=== PATIENT | male | born 1950 | race Caucasian/White ===

== ENCOUNTER 2018-03-09 06:15 | Emergency (ER) | payer OTHER, SELFPAY ==
[2018-03-09] VITALS (18 sets, daily range): BP systolic 74–145; BP diastolic 49–107; PULSE 74–90; RESP 15–34; O2SAT 95–100; BMI 31.6
[2018-03-09] MEDS: MORPHINE 5 MG/ML INJ 4 MG IV (06:40)
[2018-03-09 06:48] LABS: Add Manual Diff / Slide Review NO; Basophils Percent Auto 1.5 % (0-2); Eosinophils Percent Auto 4.6 % (2-4); Hematocrit 32.7 % (41-53); Hemoglobin 10.9 g/dL (13.5-17.5); Lymphocytes Percent Auto 27.6 % (25-40); Mean Corpuscular HGB Conc 33.5 % (30-36); Mean Corpuscular Hemoglobin 30.8 PG (26-34); Mean Corpuscular Volume 92.1 fL (80-100); Neutrophils Absolute Auto 4400 /uL (3000-5900); Neutrophils Percent Auto 56.3 % (50-75); Platelet Count 150 X10^3/uL (150-400); Red Blood Cell Count 3.55 X10^6/uL (4.5-5.9); Red Cell Distribution Width 14.8 % (11.6-14.8); White Blood Cell Count 7.8 X10^3/uL (4.5-11.0)
[2018-03-09] MEDS: HYDROMORPHONE 2 MG INJ 1 MG IV ×2 (06:53→07:10)
[2018-03-09 06:55] LABS: Prothrombin Time 11.3 SECONDS (10.1-12.7)
[2018-03-09 06:58] LABS: PTT Partial Thromboplastin Tim 19 SECONDS (26.4-36.2)
[2018-03-09 06:59] LABS: Alanine Aminotransferase 28 IU/L (21-72); Albumin 3.2 g/dL (3.5-5.0); Albumin Globulin Ratio 1.1 (1.0-2.8); Alkaline Phosphatase 70 U/L (38-126); Aspartate Aminotransferase 21 IU/L (17-59); BUN Creatinine Ratio 34.5 (6-22); Bilirubin Total 0.7 mg/dL (0.2-1.3); Blood Urea Nitrogen 38 mg/dL (9-20); Calcium 7.9 mg/dL (8.4-10.2); Carbon Dioxide 18 mmol/L (22-32); Chloride 105 mmol/L (98-107); Estimated Glomerular Filt Rate > 60.0 mL/min (>60); Glucose 246 mg/dL (80-110); HEMOLYSIS 40 (0-50); Potassium 4.6 mmol/L (3.4-5.1); Sodium 138 mmol/L (137-145); Total Protein 6.2 g/dL (6.3-8.2)
--- NOTE | 2018-03-09 07:01 | ED_ITS ---
HPI - General Adult <Tana Jones DO - Last Filed: 03/09/18 18:27> General Chief complaint: Extremity Problem,Nontraumatic Stated complaint: Rt Thigh Pain Time Seen by Provider: 03/09/18 06:37 Source: patient, family and EMS Mode of arrival: EMS Limitations: no limitations History of Present Illness HPI narrative: Patient is a 67-year-old male who presents with extreme right leg pain. He has a history of femoral arterial stent placed a number of years ago. He has noticed some swelling over the last few days however this morning he woke up with extreme pain in his leg is swelling quite rapidly. Initial blood pressure for EMS was in the 80s he continues to be in the 80s here for us. Complaining only of pain in the right medial thigh. He also has a history of a left AKA Related Data Home Medications Medication Instructions Recorded Confirmed aspirin 81 mg PO QDAY #30 tab 06/30/16 carvedilol [Coreg] 25 mg PO Q DAY #0 06/30/16 diphenhydramine HCl [Diphedryl] 25 mg PO HSP PRN #0 06/30/16 hydrochlorothiazide 12.5 mg PO QDAY #0 06/30/16 insulin glargine [Lantus Solostar 30 unit SQ HS #0 06/30/16 U-100 Insulin] insulin lispro [Humalog KwikPen 10 unit SQ SLIDE #0 06/30/16 Insulin] losartan 100 mg PO BID #0 06/30/16 rosuvastatin [Crestor] 5 mg PO QDAY #30 tab 06/30/16 Allergies Allergy/AdvReac Type Severity Reaction Status Date / Time No Known Drug Allergies Allergy Verified 03/09/18 06:48 Review of Systems <Tana Jones DO - Last Filed: 03/09/18 18:27> Review of Systems All systems reviewed & are unremarkable except as noted in HPI and below Constitutional Denies chills, Denies fever(s), Denies lethargy and Denies weakness Cardiovascular Denies chest pain, Denies irregular heart rhythm, Denies lightheadedness, Denies palpitations, Denies dyspnea, Denies dyspnea on exertion and Denies orthopnea Respiratory Denies cough, Denies dyspnea, Denies dyspnea on exertion and Denies wheezing Gastrointestinal Gastrointestinal: Denies abdominal pain, Denies change in bowel habits, Denies diarrhea, Denies nausea and Denies vomiting Musculoskeletal Reports system reviewed and no additional complaints, except as docu Integumentary/Breasts Denies pruritus, Denies erythema, Denies rash and Denies wounds Neurologic Denies weakness Endocrine Denies palpitations Hematologic/Lymphatic Denies easy bleeding and Denies easy bruising Allergic/Immunologic Denies wheezing Exam <Tana Jones DO - Last Filed: 03/09/18 18:27> Initial Vital Signs Initial Vital Signs: Vital Signs Pulse Rate 90 03/09/18 06:20 Respiratory Rate 22 03/09/18 06:20 Blood Pressure 128/80 H 03/09/18 06:20 Pulse Oximetry 95 03/09/18 06:20 Const General: acute distress, in distress and ill appearing Orientation: alert, awake and oriented x3 Other: Pale appears in pain Resp Effort & Inspection: normal respiratory effort, able to speak in complete sentences, no respiratory distress and no use of accessory muscles Auscultation: clear to auscultation bilaterally, no rales, no rhonchi and no wheezes Cardio Rate: regular rate Rhythm: regular rhythm Heart Sounds: no click, no gallops, no murmurs and no rubs Pulses: normal peripheral pulses Neuro General: alert, awake and oriented x3 Extrem General: normal to inspection Right lower extremity: hip/thigh (Swelling good femoral pulse but significant medial thigh swelling. Decreased distal pedal pulse.) <Suleiman Mcgraw, DO - Last Filed: 03/09/18 08:20> Initial Vital Signs Initial Vital Signs: Vital Signs Pulse Rate 90 03/09/18 06:20 Respiratory Rate 22 03/09/18 06:20 Blood Pressure 128/80 H 03/09/18 06:20 Pulse Oximetry 95 03/09/18 06:20 Course <Tana Jones DO - Last Filed: 03/09/18 18:27> Orders Ordered: Discontinued Medications Hydromorphone HCl (Dilaudid) 1 mg IV NOW ONE Stop: 03/09/18 07:14 Last Admin: 03/09/18 06:53 Dose: 1 mg Hydromorphone HCl (Dilaudid) 1 mg IV NOW ONE Stop: 03/09/18 07:15 Last Admin: 03/09/18 07:10 Dose: 1 mg Hydromorphone HCl (Dilaudid) 1 mg IV NOW ONE Stop: 03/09/18 08:01 Last Admin: 03/09/18 08:05 Dose: 1 mg Sodium Chloride (Normal Saline 0.9%) 1,000 mls @ 2,000 mls/hr IV BOLUS ONE Stop: 03/09/18 07:07 Last Infusion: 03/09/18 08:08 Dose: 0 mls/hr Admin: 03/09/18 07:08 Dose: 2,000 mls/hr Sodium Chloride (Normal Saline 0.9%) 1,000 mls @ 1,000 mls/hr IV BOLUS PRN PRN Reason: Fluid replacement Last Infusion: 03/09/18 09:05 Dose: 200 mls/hr Admin: 03/09/18 08:21 Dose: 1,000 mls/hr Morphine Sulfate (Morphine Sulfate) 4 mg IV NOW ONE Stop: 03/09/18 06:39 Last Admin: 03/09/18 06:40 Dose: 4 mg Morphine Sulfate (Morphine) 4 mg IV NOW ONE Stop: 03/09/18 07:14 Ondansetron HCl (Zofran) 4 mg IV NOW ONE Stop: 03/09/18 09:01 Last Admin: 03/09/18 09:00 Dose: 4 mg Vital Signs - 8 hr 03/09/18 06:20 03/09/18 06:55 03/09/18 07:10 Pulse Rate 90 85 Respiratory Rate 22 26 H Blood Pressure 128/80 H Blood Pressure [Left Arm] 145/62 H 100/70 Pulse Oximetry 95 99 03/09/18 07:18 03/09/18 07:30 03/09/18 07:36 Pulse Rate 83 81 78 Respiratory Rate 28 H 25 H Blood Pressure Blood Pressure [Left Arm] 74/52 L 110/49 L 113/69 Pulse Oximetry 99 100 03/09/18 07:41 03/09/18 07:47 03/09/18 07:50 Pulse Rate 78 81 79 Respiratory Rate 21 21 Blood Pressure Blood Pressure [Left Arm] 109/67 101/71 106/69 Pulse Oximetry 100 100 100 03/09/18 07:56 03/09/18 08:05 03/09/18 08:10 Pulse Rate 80 81 78 Respiratory Rate 15 29 H 27 H Blood Pressure Blood Pressure [Left Arm] 91/79 90/55 L 99/68 Pulse Oximetry 98 100 100 03/09/18 08:14 Pulse Rate 80 Respiratory Rate 34 H Blood Pressure Blood Pressure [Left Arm] 99/68 Pulse Oximetry 100 <Suleiman Mcgraw DO - Last Filed: 03/09/18 08:20> Orders Ordered: Discontinued Medications Hydromorphone HCl (Dilaudid) 1 mg IV NOW ONE Stop: 03/09/18 07:14 Last Admin: 03/09/18 06:53 Dose: 1 mg Hydromorphone HCl (Dilaudid) 1 mg IV NOW ONE Stop: 03/09/18 07:15 Last Admin: 03/09/18 07:10 Dose: 1 mg Hydromorphone HCl (Dilaudid) 1 mg IV NOW ONE Stop: 03/09/18 08:01 Last Admin: 03/09/18 08:05 Dose: 1 mg Sodium Chloride (Normal Saline 0.9%) 1,000 mls @ 2,000 mls/hr IV BOLUS ONE Stop: 03/09/18 07:07 Last Infusion: 03/09/18 08:08 Dose: 0 mls/hr Admin: 03/09/18 07:08 Dose: 2,000 mls/hr Sodium Chloride (Normal Saline 0.9%) 1,000 mls @ 1,000 mls/hr IV BOLUS PRN PRN Reason: Fluid replacement Last Infusion: 03/09/18 09:05 Dose: 200 mls/hr Admin: 03/09/18 08:21 Dose: 1,000 mls/hr Morphine Sulfate (Morphine Sulfate) 4 mg IV NOW ONE Stop: 03/09/18 06:39 Last Admin: 03/09/18 06:40 Dose: 4 mg Morphine Sulfate (Morphine) 4 mg IV NOW ONE Stop: 03/09/18 07:14 Ondansetron HCl (Zofran) 4 mg IV NOW ONE Stop: 03/09/18 09:01 Last Admin: 03/09/18 09:00 Dose: 4 mg Vital Signs - 8 hr 03/09/18 06:20 03/09/18 06:55 03/09/18 07:10 Pulse Rate 90 85 Respiratory Rate 22 26 H Blood Pressure 128/80 H Blood Pressure [Left Arm] 145/62 H 100/70 Pulse Oximetry 95 99 03/09/18 07:18 03/09/18 07:30 03/09/18 07:36 Pulse Rate 83 81 78 Respiratory Rate 28 H 25 H Blood Pressure Blood Pressure [Left Arm] 74/52 L 110/49 L 113/69 Pulse Oximetry 99 100 03/09/18 07:41 03/09/18 07:47 03/09/18 07:50 Pulse Rate 78 81 79 Respiratory Rate 21 21 Blood Pressure Blood Pressure [Left Arm] 109/67 101/71 106/69 Pulse Oximetry 100 100 100 03/09/18 07:56 03/09/18 08:05 03/09/18 08:10 Pulse Rate 80 81 78 Respiratory Rate 15 29 H 27 H Blood Pressure Blood Pressure [Left Arm] 91/79 90/55 L 99/68 Pulse Oximetry 98 100 100 03/09/18 08:14 Pulse Rate 80 Respiratory Rate 34 H Blood Pressure Blood Pressure [Left Arm] 99/68 Pulse Oximetry 100 Medical Decision Making <Tana Jones, DO - Last Filed: 03/09/18 18:27> MDM Narrative Medical decision making narrative: Hiro wrap and tourniquet placed on right leg concern for arterial of rupture.. Patient placed in Trendelenburg. Patient's pain is much better controlled with narcotic medications. The blood pressure remaining stable. Call into [facility] on fortunately vascular surgeon in the OR currently unavailable. Radiology called with preliminary report. 6 cm aneurysm/pseudoaneurysm femoral all artery to really rupture with no opacification distally some collaterals. Patient is signed out to Dr. Mcgraw. Awaiting Sharri biswas vascular surgeon will need to be transferred. Air lift on standby. Lab Data Lab results reviewed: Yes I reviewed the patient's lab results. Result diagrams: 03/09/18 06:30 03/09/18 06:30 Lab Results 03/09/18 03/09/18 03/09/18 Range/Units 06:30 06:30 06:30 WBC 7.8 (4.5-11.0) X10^3/uL RBC 3.55 L (4.5-5.9) X10^6/uL Hgb 10.9 L (13.5-17.5) g/dL Hct 32.7 L (41-53) % MCV 92.1 (80-100) fL MCH 30.8 (26-34) PG MCHC 33.5 (30-36) % RDW 14.8 (11.6-14.8) % Plt Count 150 (150-400) X10^3/uL Neut % (Auto) 56.3 (50-75) % Lymph % (Auto) 27.6 (25-40) % [place] % (Auto) 10.0 (3-14) % Eos % (Auto) 4.6 H (2-4) % Baso % (Auto) 1.5 (0-2) % Neut # (Auto) 4400 (7345-1404) /uL PT 11.3 (10.1-12.7) SECONDS INR 1.0 (0.9-1.3) APTT 19 L (26.4-36.2) SECONDS Sodium 138 (137-145) mmol/L Potassium 4.6 (3.4-5.1) mmol/L Chloride 105 (98-107) mmol/L Carbon Dioxide 18 L (22-32) mmol/L BUN 38 H (9-20) mg/dL Creatinine 1.10 (0.66-1.25) mg/dL Estimated GFR > 60.0 (>60) mL/min BUN/Creatinine Ratio 34.5 H (6-22) Glucose 246 H (80-110) mg/dL Calcium 7.9 L (8.4-10.2) mg/dL Total Bilirubin 0.7 (0.2-1.3) mg/dL AST 21 (17-59) IU/L ALT 28 (21-72) IU/L Alkaline Phosphatase 70 (38-126) U/L Total Protein 6.2 L (6.3-8.2) g/dL Albumin 3.2 L (3.5-5.0) g/dL Globulin 3.0 (1.7-4.1) g/dL Albumin/Globulin Ratio 1.1 (1.0-2.8) Blood Type Antibody Screen 03/09/18 Range/Units 06:30 WBC (4.5-11.0) X10^3/uL RBC (4.5-5.9) X10^6/uL Hgb (13.5-17.5) g/dL Hct (41-53) % MCV (80-100) fL MCH (26-34) PG MCHC (30-36) % RDW (11.6-14.8) % Plt Count (150-400) X10^3/uL Neut % (Auto) (50-75) % Lymph % (Auto) (25-40) % [place] % (Auto) (3-14) % Eos % (Auto) (2-4) % Baso % (Auto) (0-2) % Neut # (Auto) (9713-7415) /uL PT (10.1-12.7) SECONDS INR (0.9-1.3) APTT (26.4-36.2) SECONDS Sodium (137-145) mmol/L Potassium (3.4-5.1) mmol/L Chloride (98-107) mmol/L Carbon Dioxide (22-32) mmol/L BUN (9-20) mg/dL Creatinine (0.66-1.25) mg/dL Estimated GFR (>60) mL/min BUN/Creatinine Ratio (6-22) Glucose (80-110) mg/dL Calcium (8.4-10.2) mg/dL Total Bilirubin (0.2-1.3) mg/dL AST (17-59) IU/L ALT (21-72) IU/L Alkaline Phosphatase (38-126) U/L Total Protein (6.3-8.2) g/dL Albumin (3.5-5.0) g/dL Globulin (1.7-4.1) g/dL Albumin/Globulin Ratio (1.0-2.8) Blood Type A Positive Antibody Screen Negative Imaging Data angio: Attestation: I personally reviewed and interpreted this imaging study as follows: Radiologist's impression: PROCEDURE: CT ANGIO CHEST ABDOMEN PELVIS INDICATIONS: right leg swelling rupture hx of femoral artery stent TECHNIQUE: Precontrast 5 mm thick sections acquired from the lung apices to the iliac crests. After the administration of intravenous contrast, 2.5 mm thick sections again acquired from the lung apices to the iliac crests. Maximum intensity projection (MIP) oblique sagittal and coronal reformats were then acquired. For radiation dose reduction, the following was used: automated exposure control. COMPARISON: None. FINDINGS: Preliminary report by assembler 1st shift radiology Image quality: Excellent. Thoracic aorta: Intramural hematoma: Absent Maximum hematoma thickness: N./A. Focal contrast enhancement: Intramural blood pool absent Ulcer-like projection (broad communication with aortic lumen > 3 mm): Absent Dissection: Absent Jl classification: N./A. Maximum ascending aortic diameter: 3.7 cm Periaortic hematoma: Absent. CHEST: Lungs and pleura: Mild centrilobular emphysema. In the lateral aspect of the right upper lobe, series 8/images 15 and 16, is a spiculated 13 by 16mm subpleural mass. The inferior component is more elongated measuring 3.8 cm AP. In the left upper lobe anterolaterally is a subpleural 12 mm density with central lucency. Remainder of lungs clear. No pleural effusions or pneumothorax. Central and peripheral airways are patent and normal in caliber. Mediastinum: Heart size is normal. Coronary artery calcifications. No pericardial effusion. No mediastinal or hilar adenopathy by size criteria. Central pulmonary arteries are normal in size. Esophagus is normal in caliber. No hiatal hernias. Bones and chest wall: No axillary adenopathy by size criteria. Thyroid gland appears normal. No suspicious bony lesions. No vertebral body compression fractures. ABDOMEN: Vasculature: Abdominal aorta does show mild mural thrombus and atheromatous calcifications without aneurysm, maximum diameter 2.7 cm. The mural thrombus and wall thickening extends into the bifurcation and left common iliac artery. Celiac trunk and mesenteric arteries are patent. Renal arteries are also patent. The left superficial femoral artery immediately distal to the femoral bifurcation is aneurysmal at 2.6 x 2.7 cm with circumferential mural thrombus and complete occlusion of the lumen. There is no apparent reconstitution in the distal left thigh, AKA amputation evident. The right common femoral artery is aneurysmal at approximately 6 cm diameter and there is extravasation into the surrounding soft tissues of the proximal thigh. The vessel is occluded at that level with reconstitution of the distal popliteal artery by collateral flow. The patent portion of the popliteal artery and the runoff vessels are small in caliber. Solid organs: Liver is normal in size and enhancement. Gallbladder contains dependent stones. No gallbladder wall thickening or inflammatory changes. Biliary system is non dilated. Pancreas enhances normally. Spleen is normal in size and enhancement. No adrenal nodules. Both kidneys are normal in size and enhancement, without hydronephrosis. Peritoneum and bowel: No free fluid or air. Bowel loops are normal in caliber and wall thickness. Nodes and vessels: No retroperitoneal or mesenteric adenopathy by size criteria. Inferior vena cava is normal in morphology. Miscellaneous: No ventral hernias. PELVIS: Genitourinary: Bladder wall thickness is normal. Prostate contains amorphous calcifications. Miscellaneous: No inguinal hernias or adenopathy. No ventral hernias. Bones: No suspicious bony lesions. No vertebral body compression fractures. IMPRESSION: 1. 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 The right SFA is occluded at that level with reconstitution of the popliteal artery distally. 2. Small aneurysm at the origin of the left SFA with occlusion of the vessel at that level, no distal reconstitution seen. Status post left AKA. 3. No thoracic or abdominal aortic aneurysm or dissection. 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 4. Irregular, spiculated mass in the right upper lobe is of concern for possible primary pulmonary neoplasm. Comparison with any prior outside exams would be helpful. The lesion is probably accessible for CT-guided percutaneous biopsy if indicated. 5. Small subpleural mass with central lucency left upper lobe is likely scar but indeterminate. Followup recommended. 6. Cholelithiasis without evidence of cholecystitis. Findings are concordant with the preliminary report. Dictated by: Kendell Gutiérrez M.D. on 03/09/2018 at 7:47 Approved by: Kendell Gutiérrez M.D. on 03/09/2018 at 8:11 ECG Data Attestation: I personally reviewed and interpreted this ECG as follows: Prior ECG tracings: not available for review Interpretation: Normal sinus rhythm with PVCs rate [address] changes no ischemia normal intervals <Suleiman Mcgraw DO - Last Filed: 03/09/18 08:20> [facility] Narrative Medical decision making narrative: Received turned over from Dr. jones initially evaluated the patient upon his arrival. Reviewed patient's history and physical exam. Blood pressure stable with systolic greater than 100. Providing small aliquots of pain medication while maintaining blood pressure. Type and screen has been ordered. Awaiting callback from vascular surgery at [facility]. Patient with ruptured right femoral artery aneurysm. Will continue to monitor. 0815: Discussed the case with Dr. Bragg with vascular surgery at [facility] who reviewed the CT images and accepted the patient in transfer. We will transport the patient by airlift for surgical intervention. Patient is stable for transport. Informed the patient and his of the transport and they expressed understanding and agreement. Lab Data Lab Results 03/09/18 03/09/18 03/09/18 Range/Units 06:30 06:30 06:30 WBC 7.8 (4.5-11.0) X10^3/uL RBC 3.55 L (4.5-5.9) X10^6/uL Hgb 10.9 L (13.5-17.5) g/dL Hct 32.7 L (41-53) % MCV 92.1 (80-100) fL MCH 30.8 (26-34) PG MCHC 33.5 (30-36) % RDW 14.8 (11.6-14.8) % Plt Count 150 (150-400) X10^3/uL Neut % (Auto) 56.3 (50-75) % Lymph % (Auto) 27.6 (25-40) % [place] % (Auto) 10.0 (3-14) % Eos % (Auto) 4.6 H (2-4) % Baso % (Auto) 1.5 (0-2) % Neut # (Auto) 4400 (5933-5479) /uL PT 11.3 (10.1-12.7) SECONDS INR 1.0 (0.9-1.3) APTT 19 L (26.4-36.2) SECONDS Sodium 138 (137-145) mmol/L Potassium 4.6 (3.4-5.1) mmol/L Chloride 105 (98-107) mmol/L Carbon Dioxide 18 L (22-32) mmol/L BUN 38 H (9-20) mg/dL Creatinine 1.10 (0.66-1.25) mg/dL Estimated GFR > 60.0 (>60) mL/min BUN/Creatinine Ratio 34.5 H (6-22) Glucose 246 H (80-110) mg/dL Calcium 7.9 L (8.4-10.2) mg/dL Total Bilirubin 0.7 (0.2-1.3) mg/dL AST 21 (17-59) IU/L ALT 28 (21-72) IU/L Alkaline Phosphatase 70 (38-126) U/L Total Protein 6.2 L (6.3-8.2) g/dL Albumin 3.2 L (3.5-5.0) g/dL Globulin 3.0 (1.7-4.1) g/dL Albumin/Globulin Ratio 1.1 (1.0-2.8) Blood Type Antibody Screen 03/09/18 Range/Units 06:30 WBC (4.5-11.0) X10^3/uL RBC (4.5-5.9) X10^6/uL Hgb (13.5-17.5) g/dL Hct (41-53) % MCV (80-100) fL MCH (26-34) PG MCHC (30-36) % RDW (11.6-14.8) % Plt Count (150-400) X10^3/uL Neut % (Auto) (50-75) % Lymph % (Auto) (25-40) % [place] % (Auto) (3-14) % Eos % (Auto) (2-4) % Baso % (Auto) (0-2) % Neut # (Auto) (4668-8844) /uL PT (10.1-12.7) SECONDS INR (0.9-1.3) APTT (26.4-36.2) SECONDS Sodium (137-145) mmol/L Potassium (3.4-5.1) mmol/L Chloride (98-107) mmol/L Carbon Dioxide (22-32) mmol/L BUN (9-20) mg/dL Creatinine (0.66-1.25) mg/dL Estimated GFR (>60) mL/min BUN/Creatinine Ratio (6-22) Glucose (80-110) mg/dL Calcium (8.4-10.2) mg/dL Total Bilirubin (0.2-1.3) mg/dL AST (17-59) IU/L ALT (21-72) IU/L Alkaline Phosphatase (38-126) U/L Total Protein (6.3-8.2) g/dL Albumin (3.5-5.0) g/dL Globulin (1.7-4.1) g/dL Albumin/Globulin Ratio (1.0-2.8) Blood Type A Positive Antibody Screen Negative Discharge Plan Departure [facility] 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 Discharge Date/Time: 03/09/18 09:05 Interventions: ED Discharge Assessment Last Done: 03/09/18 09:12 Prescriptions: No Action aspirin 81 MG tablet,delayed release (DR/EC) 81 mg PO QDAY Qty: 30 RF: 0 carvedilol [Coreg] 25 MG tablet 25 mg PO Q DAY Qty: 0 RF: 0 diphenhydramine HCl [Diphedryl] 25 MG capsule 25 mg PO HSP PRNQty: 0 RF: 0 hydrochlorothiazide 25 MG tablet 12.5 mg PO QDAY Qty: 0 RF: 0 insulin glargine [Lantus Solostar U-100 Insulin] 100 UNIT/1 ML insulin pen 30 unit SQ HS Qty: 0 RF: 0 losartan 100 MG tablet 100 mg PO BID Qty: 0 RF: 0 insulin lispro [Humalog KwikPen Insulin] 100 UNIT/1 ML insulin pen 10 unit SQ SLIDE Qty: 0 RF: 0 rosuvastatin [Crestor] 5 MG tablet 5 mg PO QDAY Qty: 30 RF: 0
[2018-03-09] MEDS: SODIUM CHLORIDE 0.9% 1,000 ML 2000 ML IV (07:08)
--- NOTE | 2018-03-09 07:13 | DI.CT.S_ITS ---
PROCEDURE: CT ANGIO CHEST ABDOMEN PELVIS INDICATIONS: right leg swelling rupture hx of femoral artery stent TECHNIQUE: Precontrast 5 mm thick sections acquired from the lung apices to the iliac crests. After the administration of intravenous contrast, 2.5 mm thick sections again acquired from the lung apices to the iliac crests. Maximum intensity projection (MIP) oblique sagittal and coronal reformats were then acquired. For radiation dose reduction, the following was used: automated exposure control. COMPARISON: None. FINDINGS: Preliminary report by police shift commander radiology Image quality: Excellent. Thoracic aorta: Intramural hematoma: Absent Maximum hematoma thickness: N./A. Focal contrast enhancement: Intramural blood pool absent Ulcer-like projection (broad communication with aortic lumen > 3 mm): Absent Dissection: Absent Jl classification: N./A. Maximum ascending aortic diameter: 3.7 cm Periaortic hematoma: Absent. CHEST: Lungs and pleura: Mild centrilobular emphysema. In the lateral aspect of the right upper lobe, series 8/images 15 and 16, is a spiculated 13 by 16mm subpleural mass. The inferior component is more elongated measuring 3.8 cm AP. In the left upper lobe anterolaterally is a subpleural 12 mm density with central lucency. Remainder of lungs clear. No pleural effusions or pneumothorax. Central and peripheral airways are patent and normal in caliber. Mediastinum: Heart size is normal. Coronary artery calcifications. No pericardial effusion. No mediastinal or hilar adenopathy by size criteria. Central pulmonary arteries are normal in size. Esophagus is normal in caliber. No hiatal hernias. Bones and chest wall: No axillary adenopathy by size criteria. Thyroid gland appears normal. No suspicious bony lesions. No vertebral body compression fractures. ABDOMEN: Vasculature: Abdominal aorta does show mild mural thrombus and atheromatous calcifications without aneurysm, maximum diameter 2.7 cm. The mural thrombus and wall thickening extends into the bifurcation and left common iliac artery. Celiac trunk and mesenteric arteries are patent. Renal arteries are also patent. The left superficial femoral artery immediately distal to the femoral bifurcation is aneurysmal at 2.6 x 2.7 cm with circumferential mural thrombus and complete occlusion of the lumen. There is no apparent reconstitution in the distal left thigh, AKA amputation evident. The right common femoral artery is aneurysmal at approximately 6 cm diameter and there is extravasation into the surrounding soft tissues of the proximal thigh. The vessel is occluded at that level with reconstitution of the distal popliteal artery by collateral flow. The patent portion of the popliteal artery and the runoff vessels are small in caliber. Solid organs: Liver is normal in size and enhancement. Gallbladder contains dependent stones. No gallbladder wall thickening or inflammatory changes. Biliary system is non dilated. Pancreas enhances normally. Spleen is normal in size and enhancement. No adrenal nodules. Both kidneys are normal in size and enhancement, without hydronephrosis. Peritoneum and bowel: No free fluid or air. Bowel loops are normal in caliber and wall thickness. Nodes and vessels: No retroperitoneal or mesenteric adenopathy by size criteria. Inferior vena cava is normal in morphology. Miscellaneous: No ventral hernias. PELVIS: Genitourinary: Bladder wall thickness is normal. Prostate contains amorphous calcifications. Miscellaneous: No inguinal hernias or adenopathy. No ventral hernias. Bones: No suspicious bony lesions. No vertebral body compression fractures. IMPRESSION: 1. 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 The right SFA is occluded at that level with reconstitution of the popliteal artery distally. 2. Small aneurysm at the origin of the left SFA with occlusion of the vessel at that level, no distal reconstitution seen. Status post left AKA. 3. No thoracic or abdominal aortic aneurysm or dissection. 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 4. Irregular, spiculated mass in the right upper lobe is of concern for possible primary pulmonary neoplasm. Comparison with any prior outside exams would be helpful. The lesion is probably accessible for CT-guided percutaneous biopsy if indicated. 5. Small subpleural mass with central lucency left upper lobe is likely scar but indeterminate. Followup recommended. 6. Cholelithiasis without evidence of cholecystitis. Findings are concordant with the preliminary report. Dictated by: Kendell Gutiérrez M.D. on 03/09/2018 at 7:47 Approved by: Kendell Gutiérrez M.D. on 03/09/2018 at 8:11
--- NOTE | 2018-03-09 07:34 | PC.NURSE ---
Late entry @0710-assumed care of pt in [facility]. Pt awake, appears to be sleepy but oriented x3, c/o R leg. Pt sitting up in bed, pale in the face. Has a tourniquet and acewrap in R leg. 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 Pt cont being monitored for HR, BP Q5min, Cardiac, o2. O2 by NC on 3L provided and RLE elevated above chest level on 2 pillows and pt in trendelenberg position. Pt medicated 2nd dose of dialaudid 1mg titrated per BP. Ice pack applied on affected limb as ordered. Informed pt and spouse on pending transfer and attempting to find receiving facility for higher care. MD aware of pt's BP and pain. After the pain med, pt still c/o pain in RLE.
--- NOTE | 2018-03-09 07:41 | PC.NURSE ---
pt reports pain radiating to R Lower back. Hx of stent to RLE, has been having pain for last a couple of week and noticed large swelling at 0600 am when woke up to go to bathroom.
[2018-03-09] MEDS: HYDROMORPHONE 1 MG INJ IV (08:05)
--- NOTE | 2018-03-09 08:07 | PC.NURSE ---
Titraing Dilaudid 0.5mg each per Pt's BP.
[2018-03-09] MEDS: SODIUM CHLORIDE 0.9% 1,000 ML 1000 ML IV (08:21)
--- NOTE | 2018-03-09 08:28 | PC.NURSE ---
pt reports unable to feel on RLE as pt's usual decreased sensation. Able to wiggle toes. RLE cool to touch but upper body-pale and diphoresis
--- NOTE | 2018-03-09 08:40 | PC.NURSE ---
Difficulty managing pt's low back and RLE pain with dilaudid titration. Noticed increased R thigh size upto above R knee. Feel bounding pulsation on R thigh above the tournique which in place high and tight and intact. -R foot pedal pulse, skin cool/dusky and mottle, cool to touch. Pt denies sensation on R foot but able to wiggle toes. Pt pale in the face and mildly diaphoretic on face and chest. Pt and spouse informed regarding pending transfer to [facility] via [facility]. Pt in and out of sleeping and easily aroused per light noise.
[2018-03-09] MEDS: ONDANSETRON 4 MG/2 ML INJ IV (09:00)
== END 2018-03-09 09:05 | disposition short-term general hospital (02) ==
PROVIDERS: Emergency Medicine; Emergency Provider Emergency Medicine; PCP Internal Medicine
DX: I72.4 Aneurysm of artery of lower extremity (principal)
CPT/HCPCS: 71275; 74174; 80053; 85025; 85610; 85730; 86850; 86900; 86901; 93005; 93010; 93041; 96361; 96374; 96375; 96376; 99285; 99291; 99292; J1170; J2270; J2405; Q9967

== ENCOUNTER → 2018-04-03 16:22 | Outpatient (REF) | payer OTHER, SELFPAY ==
[2018-04-03 16:47] LABS: Prothrombin Time 53.7 SECONDS (10.1-12.7)
[2018-04-03 17:14] LABS: INR 5.1 (0.9-1.3)
== END ==
LOC: LAB 16:22
PROVIDERS: PCP Internal Medicine; Visit Provider Physician Assistant Medical
DX: I72.4 Aneurysm of artery of lower extremity (principal); Z79.01 Long term (current) use of anticoagulants; Z79.899 Other long term (current) drug therapy
CPT/HCPCS: 85610

== ENCOUNTER 2018-05-24 14:30 | Emergency (ER) | payer OTHER, SELFPAY ==
[2018-05-24 14:48] VITALS: BP 125/77; PULSE 69; RESP 18; TEMP 36.9; O2SAT 98
--- NOTE | 2018-05-24 15:16 | ED_ITS ---
HPI - Extremity Problem <Rivka Suazo PA-C - Last Filed: 05/24/18 21:29> General Chief complaint: Skin/Abscess/Foreign Body Stated complaint: SURGERY RIGHT LEG,FEVER/FECTION Time Seen by Provider: 05/24/18 14:47 Source: patient Mode of arrival: ambulatory Limitations: no limitations History of Present Illness HPI Narrative: this 67-year-old gentleman comes to ED after directed by his PCP. 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 He ended up being transferred from here and had fasciotomy and some type of vascular repair done as well ( he is not exactly sure what was done ). He states he has had home health care every other day and has been healing well, however over the long weekend they did not come out for 5 days. Two days ago, he started to have chills and sweats and felt poorly in general with decreased appetite, generalized body aches, dry heaves, and a few episodes of vomiting. The vomiting only lasted that day, however he has had persistent aches and feeling weak and tired, and today he had a fever of 101.5 at home which prompted him to call his PCP. States that he noted drainage from the right medial thigh incision (states thin, clear fluid, more in last 2 days). He states that the distal portion of that has been slow to heal. He has not seen pus coming from this, but it has been more red, warm and swollen, so he is concerned about infection. He denies other new complaints such as chest pain, dyspnea, or cough. He states that he has had some degree of swelling around that incision site since surgery, but thinks a little bit worse now. Related Data Home Medications Medication Instructions Recorded Confirmed aspirin 81 mg PO QPM #30 tab 06/30/16 05/24/18 carvedilol [Coreg] 25 mg PO BID #0 06/30/16 05/24/18 diphenhydramine HCl [Diphedryl] 25 mg PO HSP PRN #0 06/30/16 05/24/18 hydrochlorothiazide 25 mg PO QDAY #0 06/30/16 05/24/18 insulin glargine [Lantus Solostar 30 unit SQ HS #0 06/30/16 05/24/18 U-100 Insulin] insulin lispro [Humalog KwikPen 10 - 12 unit SQ BID #0 06/30/16 05/24/18 Insulin] losartan 100 mg PO BID #0 06/30/16 05/24/18 CoQ-10 1 cap PO DAILY 05/24/18 05/24/18 rosuvastatin 10 mg PO QPM 05/24/18 05/24/18 warfarin 2.5 mg PO Q OTHER DAY 05/24/18 05/24/18 warfarin 5 mg PO Q OTHER DAY 05/24/18 05/24/18 Previous Rx's Medication Instructions Recorded clindamycin HCl 300 mg PO Q6H 10 Days #40 cap 05/24/18 Allergies Allergy/AdvReac Type Severity Reaction Status Date / Time atenolol Allergy Unknown Verified 05/24/18 15:00 atorvastatin Allergy Unknown Hives Verified 05/24/18 15:00 clopidogrel Allergy Unknown Hives Verified 05/24/18 15:00 Review of Systems <Rivka Suazo PA-C - Last Filed: 05/24/18 21:29> Review of Systems All systems reviewed & are unremarkable except as noted in HPI and below Exam <Rivka Suazo PA-C - Last Filed: 05/24/18 21:29> Narrative Exam Narrative: GENERAL APPEARANCE: Patient sitting comfortably, in no distress. HEENT: PERRL, EOMI NECK/THYROID: Neck supple. LUNGS: Clear to auscultation bilaterally. HEART: Regular rate and rhythm without murmur, normal S1, S2, no S3 or S4. ABDOMEN: Soft, NT, ND, + BS x 4 quadrants EXTREMITIES: No cyanosis or edema. No calf tenderness on the right. Right pedal pulses are not palpable but easily audible with Doppler NEUROLOGIC: Alert and oriented, normal speech, and coordination. DERMATOLOGIC: Left thigh there is a surgical incision site on the medial side that is slightly erythematous. The distal cm is somewhat open, draining some serous fluid, nontender. There is some edema around the wound, no clear pocket of fluctuance. There is patchy erythema surrounding the wound as well that is slightly warm to touch. There is a fasciotomy inferior medial to this with no erythema or drainage. On the lateral thigh there is a graft donation site that appears normal Initial Vital Signs Initial Vital Signs: Vital Signs Temperature 98.5 F 05/24/18 14:48 Pulse Rate 69 05/24/18 14:48 Respiratory Rate 18 05/24/18 14:48 Blood Pressure 125/77 05/24/18 14:48 Pulse Oximetry 98 05/24/18 14:48 <Tana Gerber DO - Last Filed: 05/25/18 11:21> Initial Vital Signs Initial Vital Signs: Vital Signs Temperature 98.5 F 05/24/18 14:48 Pulse Rate 69 05/24/18 14:48 Respiratory Rate 18 05/24/18 14:48 Blood Pressure 125/77 05/24/18 14:48 Pulse Oximetry 98 05/24/18 14:48 Course <Rivka Suazo PA-C - Last Filed: 05/24/18 21:29> Orders Ordered: Discontinued Medications Clindamycin Phosphate (Cleocin) 900 mg in 50 mls @ 50 mls/hr IV NOW ONE Stop: 05/24/18 16:35 Last Infusion: 05/24/18 17:13 Dose: 0 mls/hr Admin: 05/24/18 16:01 Dose: 50 mls/hr Sodium Chloride (Normal Saline 0.9%) 1,000 mls @ 1,000 mls/hr IV BOLUS ONE Stop: 05/24/18 16:49 Last Infusion: 05/24/18 18:14 Dose: 0 mls/hr Infusion: 05/24/18 17:13 Dose: 1,000 mls/hr Infusion: 05/24/18 16:01 Dose: 150 mls/hr Admin: 05/24/18 16:01 Dose: 1,000 mls/hr Consultations Additional Consultation(s): Reviewed findings with Dr. Gerber who also saw patient (she evaluated him at previous visit), and agrees with plan for continued outpatient treatment with PCP f/u. Patient agreed to return here if any acutely worsening sx in the interim Vital Signs - 8 hr 05/24/18 14:48 05/24/18 17:11 05/24/18 18:09 Temperature 98.5 F Pulse Rate 69 66 Respiratory Rate 18 14 Blood Pressure 125/77 Blood Pressure [Left Arm] 121/62 103/51 L Pulse Oximetry 98 96 05/24/18 18:15 Temperature 99.0 F Pulse Rate 84 Respiratory Rate 18 Blood Pressure 103/51 L Blood Pressure [Left Arm] Pulse Oximetry 97 <Tana Gerber DO - Last Filed: 05/25/18 11:21> Orders Ordered: Discontinued Medications Clindamycin Phosphate (Cleocin) 900 mg in 50 mls @ 50 mls/hr IV NOW ONE Stop: 05/24/18 16:35 Last Infusion: 05/24/18 17:13 Dose: 0 mls/hr Admin: 05/24/18 16:01 Dose: 50 mls/hr Sodium Chloride (Normal Saline 0.9%) 1,000 mls @ 1,000 mls/hr IV BOLUS ONE Stop: 05/24/18 16:49 Last Infusion: 05/24/18 18:14 Dose: 0 mls/hr Infusion: 05/24/18 17:13 Dose: 1,000 mls/hr Infusion: 05/24/18 16:01 Dose: 150 mls/hr Admin: 05/24/18 16:01 Dose: 1,000 mls/hr Vital Signs - 8 hr 05/24/18 14:48 05/24/18 17:11 05/24/18 18:09 Temperature 98.5 F Pulse Rate 69 66 Respiratory Rate 18 14 Blood Pressure 125/77 Blood Pressure [Left Arm] 121/62 103/51 L Pulse Oximetry 98 96 05/24/18 18:15 Temperature 99.0 F Pulse Rate 84 Respiratory Rate 18 Blood Pressure 103/51 L Blood Pressure [Left Arm] Pulse Oximetry 97 MDM - Extremity (Nontraumatic) <Rivka Suazo PA-C - Last Filed: 05/24/18 21:29> Lab Data Result diagrams: 05/24/18 15:15 05/24/18 15:15 Lab Results 05/24/18 05/24/18 05/24/18 Range/Units 15:15 15:15 15:15 WBC 9.7 (4.5-11.0) X10^3/uL RBC 3.78 L (4.5-5.9) X10^6/uL Hgb 11.4 L (13.5-17.5) g/dL Hct 33.8 L (41-53) % MCV 89.4 (80-100) fL MCH 30.3 (26-34) PG MCHC 33.9 (30-36) % RDW 16.1 H (11.6-14.8) % Plt Count 168 (150-400) X10^3/uL Neut % (Auto) 81.2 H (50-75) % Lymph % (Auto) 7.0 L (25-40) % Crook % (Auto) 11.0 (3-14) % Eos % (Auto) 0.5 L (2-4) % Baso % (Auto) 0.3 (0-2) % Neut # (Auto) 7800 H (4010-0633) /uL PT (10.1-12.7) SECONDS INR (0.9-1.3) APTT (26.4-36.2) SECONDS Sodium 140 (137-145) mmol/L Potassium 3.9 (3.4-5.1) mmol/L Chloride 101 (98-107) mmol/L Carbon Dioxide 26 (22-32) mmol/L BUN 37 H (9-20) mg/dL Creatinine 1.20 (0.66-1.25) mg/dL Estimated GFR > 60.0 (>60) mL/min BUN/Creatinine Ratio 30.8 H (6-22) Glucose 108 (80-110) mg/dL Lactate (0.7-2.1) mmol/L Calcium 9.1 (8.4-10.2) mg/dL Total Bilirubin 1.0 (0.2-1.3) mg/dL AST 19 (17-59) IU/L ALT 21 (21-72) IU/L Alkaline Phosphatase 91 (38-126) U/L Total Protein 7.8 (6.3-8.2) g/dL Albumin 4.0 (3.5-5.0) g/dL Globulin 3.8 (1.7-4.1) g/dL Albumin/Globulin Ratio 1.1 (1.0-2.8) Procalcitonin 0.48 (<0.5) ng/mL 05/24/18 05/24/18 Range/Units 15:15 15:15 WBC (4.5-11.0) X10^3/uL RBC (4.5-5.9) X10^6/uL Hgb (13.5-17.5) g/dL Hct (41-53) % MCV (80-100) fL MCH (26-34) PG MCHC (30-36) % RDW (11.6-14.8) % Plt Count (150-400) X10^3/uL Neut % (Auto) (50-75) % Lymph % (Auto) (25-40) % Crook % (Auto) (3-14) % Eos % (Auto) (2-4) % Baso % (Auto) (0-2) % Neut # (Auto) (1104-5609) /uL PT 15.2 H (10.1-12.7) SECONDS INR 1.4 H (0.9-1.3) APTT 30 D (26.4-36.2) SECONDS Sodium (137-145) mmol/L Potassium (3.4-5.1) mmol/L Chloride (98-107) mmol/L Carbon Dioxide (22-32) mmol/L BUN (9-20) mg/dL Creatinine (0.66-1.25) mg/dL Estimated GFR (>60) mL/min BUN/Creatinine Ratio (6-22) Glucose (80-110) mg/dL Lactate 1.0 (0.7-2.1) mmol/L Calcium (8.4-10.2) mg/dL Total Bilirubin (0.2-1.3) mg/dL AST (17-59) IU/L ALT (21-72) IU/L Alkaline Phosphatase (38-126) U/L Total Protein (6.3-8.2) g/dL Albumin (3.5-5.0) g/dL Globulin (1.7-4.1) g/dL Albumin/Globulin Ratio (1.0-2.8) Procalcitonin (<0.5) ng/mL <Tana Gerber, DO - Last Filed: 05/25/18 11:21> Lab Data Lab Results 05/24/18 05/24/18 05/24/18 Range/Units 15:15 15:15 15:15 WBC 9.7 (4.5-11.0) X10^3/uL RBC 3.78 L (4.5-5.9) X10^6/uL Hgb 11.4 L (13.5-17.5) g/dL Hct 33.8 L (41-53) % MCV 89.4 (80-100) fL MCH 30.3 (26-34) PG MCHC 33.9 (30-36) % RDW 16.1 H (11.6-14.8) % Plt Count 168 (150-400) X10^3/uL Neut % (Auto) 81.2 H (50-75) % Lymph % (Auto) 7.0 L (25-40) % Crook % (Auto) 11.0 (3-14) % Eos % (Auto) 0.5 L (2-4) % Baso % (Auto) 0.3 (0-2) % Neut # (Auto) 7800 H (3405-7129) /uL PT (10.1-12.7) SECONDS INR (0.9-1.3) APTT (26.4-36.2) SECONDS Sodium 140 (137-145) mmol/L Potassium 3.9 (3.4-5.1) mmol/L Chloride 101 (98-107) mmol/L Carbon Dioxide 26 (22-32) mmol/L BUN 37 H (9-20) mg/dL Creatinine 1.20 (0.66-1.25) mg/dL Estimated GFR > 60.0 (>60) mL/min BUN/Creatinine Ratio 30.8 H (6-22) Glucose 108 (80-110) mg/dL Lactate (0.7-2.1) mmol/L Calcium 9.1 (8.4-10.2) mg/dL Total Bilirubin 1.0 (0.2-1.3) mg/dL AST 19 (17-59) IU/L ALT 21 (21-72) IU/L Alkaline Phosphatase 91 (38-126) U/L Total Protein 7.8 (6.3-8.2) g/dL Albumin 4.0 (3.5-5.0) g/dL Globulin 3.8 (1.7-4.1) g/dL Albumin/Globulin Ratio 1.1 (1.0-2.8) Procalcitonin 0.48 (<0.5) ng/mL 05/24/18 05/24/18 Range/Units 15:15 15:15 WBC (4.5-11.0) X10^3/uL RBC (4.5-5.9) X10^6/uL Hgb (13.5-17.5) g/dL Hct (41-53) % MCV (80-100) fL MCH (26-34) PG MCHC (30-36) % RDW (11.6-14.8) % Plt Count (150-400) X10^3/uL Neut % (Auto) (50-75) % Lymph % (Auto) (25-40) % Crook % (Auto) (3-14) % Eos % (Auto) (2-4) % Baso % (Auto) (0-2) % Neut # (Auto) (6447-3454) /uL PT 15.2 H (10.1-12.7) SECONDS INR 1.4 H (0.9-1.3) APTT 30 D (26.4-36.2) SECONDS Sodium (137-145) mmol/L Potassium (3.4-5.1) mmol/L Chloride (98-107) mmol/L Carbon Dioxide (22-32) mmol/L BUN (9-20) mg/dL Creatinine (0.66-1.25) mg/dL Estimated GFR (>60) mL/min BUN/Creatinine Ratio (6-22) Glucose (80-110) mg/dL Lactate 1.0 (0.7-2.1) mmol/L Calcium (8.4-10.2) mg/dL Total Bilirubin (0.2-1.3) mg/dL AST (17-59) IU/L ALT (21-72) IU/L Alkaline Phosphatase (38-126) U/L Total Protein (6.3-8.2) g/dL Albumin (3.5-5.0) g/dL Globulin (1.7-4.1) g/dL Albumin/Globulin Ratio (1.0-2.8) Procalcitonin (<0.5) ng/mL Discharge Plan Departure Patient Disposition: Home Clinical Impression: Cellulitis Discharge Date/Time: 05/24/18 18:17 Interventions: ED Discharge Assessment Last Done: 05/24/18 18:15 Instructions: DI for Cellulitis -- Adult Activity Restrictions/Additional Instructions: Please return as we talked about if you have any acutely worsening symptoms such as high fever, worsening redness, pain or swelling. Otherwise please continue the antibiotic clindamycin, that we started in your IV this evening, and recheck with your PCP in a couple of days. The drainage that we saw today appears to be serous drainage from the wound. Continue dressing that with a pad to absorb as needed Prescriptions: New clindamycin HCl 300 mg capsule 300 mg PO Q6H 10 Days Qty: 40 RF: 0 No Action aspirin 81 MG tablet,delayed release (DR/EC) 81 mg PO QPM Qty: 30 RF: 0 carvedilol [Coreg] 25 MG tablet 25 mg PO BID Qty: 0 RF: 0 diphenhydramine HCl [Diphedryl] 25 MG capsule 25 mg PO HSP PRN (Reason: Sleep) Qty: 0 RF: 0 hydrochlorothiazide 25 MG tablet 25 mg PO QDAY Qty: 0 RF: 0 insulin glargine [Lantus Solostar U-100 Insulin] 100 UNIT/1 ML insulin pen 30 unit SQ HS Qty: 0 RF: 0 losartan 100 MG tablet 100 mg PO BID Qty: 0 RF: 0 insulin lispro [Humalog KwikPen Insulin] 100 UNIT/1 ML insulin pen 10 - 12 unit SQ BID Qty: 0 RF: 0 rosuvastatin 10 mg Tablet 10 mg PO QPM RF: 0 CoQ-10 1 cap PO DAILY RF: 0 warfarin 2.5 mg Tablet 2.5 mg PO Q OTHER DAY RF: 0 warfarin 5 mg Tablet 5 mg PO Q OTHER DAY RF: 0 Referrals: Keaton Escalante MD [Primary Care Provider] - <Tana Gerber DO - Last Filed: 05/25/18 11:21> Cosign ED Attending Dorysature Attestation: I was immediately available in the department for consultation. Documentation has been reviewed. I agree with assessment and plan.
--- NOTE | 2018-05-24 15:32 | PC.NURSE ---
Pt has a healing fasciotomy with skin graft on lateral aspect of right distal leg. Being seen by wound care. It was dressed with vaseline gauze. There is also a surgical incision on the medial aspect of the right distal leg where he had a vascular surgery. Has complicated vascular history. With most recent being a spontaneous femoral rupture. There is pus draining from bottom of this incision. The dressing was saturated.
[2018-05-24 15:38] LABS: Add Manual Diff / Slide Review NO; Basophils Percent Auto 0.3 % (0-2); Eosinophils Percent Auto 0.5 % (2-4); Hematocrit 33.8 % (41-53); Hemoglobin 11.4 g/dL (13.5-17.5); Mean Corpuscular HGB Conc 33.9 % (30-36); Mean Corpuscular Hemoglobin 30.3 PG (26-34); Mean Corpuscular Volume 89.4 fL (80-100); Neutrophils Absolute Auto 7800 /uL (3000-5900); Neutrophils Percent Auto 81.2 % (50-75); Platelet Count 168 X10^3/uL (150-400); Red Blood Cell Count 3.78 X10^6/uL (4.5-5.9); Red Cell Distribution Width 16.1 % (11.6-14.8); White Blood Cell Count 9.7 X10^3/uL (4.5-11.0)
[2018-05-24 15:42] LABS: INR 1.4 (0.9-1.3); Prothrombin Time 15.2 SECONDS (10.1-12.7)
[2018-05-24 15:44] LABS: PTT Partial Thromboplastin Tim 30 SECONDS (26.4-36.2)
[2018-05-24 15:48] LABS: Alanine Aminotransferase 21 IU/L (21-72); Albumin Globulin Ratio 1.1 (1.0-2.8); Alkaline Phosphatase 91 U/L (38-126); Aspartate Aminotransferase 19 IU/L (17-59); BUN Creatinine Ratio 30.8 (6-22); Blood Urea Nitrogen 37 mg/dL (9-20); Calcium 9.1 mg/dL (8.4-10.2); Carbon Dioxide 26 mmol/L (22-32); Chloride 101 mmol/L (98-107); Estimated Glomerular Filt Rate > 60.0 mL/min (>60); Globulin 3.8 g/dL (1.7-4.1); Glucose 108 mg/dL (80-110); HEMOLYSIS < 15 (0-50); Potassium 3.9 mmol/L (3.4-5.1); Sodium 140 mmol/L (137-145); Total Protein 7.8 g/dL (6.3-8.2)
[2018-05-24] MEDS: SODIUM CHLORIDE 0.9% 1,000 ML 1000 ML IV (16:01)
[2018-05-24] MEDS: CLINDAMYCIN 900 MG/50 ML PIGGYBACK 50 MG IV (16:01)
[2018-05-24 16:07] LABS: Procalcitonin 0.48 ng/mL (<0.5)
[2018-05-24 17:11] VITALS: BP 121/62; PULSE 66; RESP 14; O2SAT 96
[2018-05-24 18:09] VITALS: BP 103/51
[2018-05-24 18:15] VITALS: BP 103/51; PULSE 84; RESP 18; TEMP 37.2; O2SAT 97
== END 2018-05-24 18:17 | disposition home or self-care (01) ==
PROVIDERS: Emergency Provider Internal Medicine; PCP Internal Medicine
DX: L03.116 Cellulitis of left lower limb (principal)
CPT/HCPCS: 36591; 80053; 83605; 84145; 85025; 85610; 85730; 87040; 96361; 96365; 99283; 99284

== ENCOUNTER 2018-07-06 12:38 | Emergency (ER) | payer OTHER, SELFPAY ==
[2018-07-06 12:53] VITALS: BP 112/53; PULSE 74; RESP 18; TEMP 36.7; O2SAT 99; BMI 32.3
--- NOTE | 2018-07-06 12:59 | ED.SKABFB ---
HPI - Skin/Abscess/Foreign Bdy <FRANCHESKA Turcios - Last Filed: 07/06/18 22:10> General Chief complaint: Skin/Abscess/Foreign Body Stated complaint: INCISION SITE OPENED Time Seen by Provider: 07/06/18 12:59 Source: patient Mode of arrival: ambulatory Limitations: no limitations History of Present Illness HPI narrative: 67-year-old male with history of diabetes and right for moral aneurysm here for complaint of open incision to the right groin area. He had aneurysm repair surgery in February of this year down at [facility]. He reports that it has been healing well he has had no complications up until this point. He states that he noticed that there was a small opening to the scar tissue area into his right groin area this morning when he was in the shower. He denies any trauma to the area. He states that he has been stretching the area physical therapy a last time was day before yesterday. He denies any fevers or chills. He denies any redness to the area. He states that has been draining a clear yellowish drainage. MD complaint: other Related Data Home Medications Medication Instructions Recorded Confirmed aspirin 81 mg PO QPM #30 tab 06/30/16 07/06/18 carvedilol [Coreg] 25 mg PO BID #0 06/30/16 07/06/18 diphenhydramine HCl [Diphedryl] 25 mg PO HSP PRN #0 06/30/16 07/06/18 hydrochlorothiazide 25 mg PO QPM #0 06/30/16 07/06/18 insulin glargine [Lantus Solostar 30 unit SQ HS #0 06/30/16 07/06/18 U-100 Insulin] insulin lispro [Humalog KwikPen 12 - 15 unit SQ BID #0 06/30/16 07/06/18 Insulin] losartan 50 mg PO BID #0 06/30/16 07/06/18 CoQ-10 1 cap PO QPM 05/24/18 07/06/18 warfarin 2.5 mg PO SUTUTHSA 05/24/18 07/06/18 warfarin 5 mg PO MOWEFR 05/24/18 07/06/18 [id number] 1 cap PO DAILY 07/06/18 07/06/18 [Krill Oil ([place] 3 and 6)] rosuvastatin 20 mg PO BEDTIME 07/06/18 07/06/18 Allergies Allergy/AdvReac Type Severity Reaction Status Date / Time atenolol Allergy Unknown Verified 05/24/18 15:00 atorvastatin Allergy Unknown Hives Verified 05/24/18 15:00 clopidogrel Allergy Unknown Hives Verified 05/24/18 15:00 Review of Systems <FRANCHESKA Turcios - Last Filed: 07/06/18 22:10> Constitutional Denies chills, Denies fever(s), Denies lethargy and Denies weakness Eyes Denies change in vision, Denies eye discharge, Denies irritation and Denies loss of vision ENT Ears, Nose, Mouth, and Throat: Denies change in voice, Denies neck pain and Denies sore throat Cardiovascular Denies chest pain, Denies irregular heart rhythm, Denies lightheadedness, Denies palpitations, Denies dyspnea, Denies dyspnea on exertion and Denies orthopnea Respiratory Denies cough, Denies dyspnea, Denies dyspnea on exertion and Denies wheezing Gastrointestinal Gastrointestinal: Denies abdominal pain, Denies change in bowel habits, Denies diarrhea, Denies nausea and Denies vomiting Genitourinary Denies hematuria, Denies flank pain, Denies urinary incontinence and Denies urinary urgency Musculoskeletal Denies neck pain Integumentary/Breasts Comments: Open lesion into past surgical site right groin Neurologic Denies confusion, Denies loss of vision and Denies weakness Psychiatric Denies anxiety, Denies confusion, Denies depression, Denies homicidal ideation and Denies suicidal ideation Endocrine Denies palpitations Hematologic/Lymphatic Denies easy bruising Allergic/Immunologic Denies wheezing Exam <FRANCHESKA Turcios - Last Filed: 07/06/18 22:10> Initial Vital Signs Initial Vital Signs: Vital Signs Temperature 98.0 F 07/06/18 12:53 Pulse Rate 74 07/06/18 12:53 Respiratory Rate 18 07/06/18 12:53 Blood Pressure 112/53 L 07/06/18 12:53 Pulse Oximetry 99 07/06/18 12:53 Const General: cooperative and well developed Nutritional Appearance: well nourished Orientation: alert, awake, oriented x3 and not confused HENTN Mouth: oral mucosae normal and moist mucous membranes Eyes Conjunctivae: conjunctivae normal Sclera: sclerae normal Pupils: PERRL EOM: EOM intact bilaterally Resp Effort & Inspection: normal respiratory effort, able to speak in complete sentences, no respiratory distress and no use of accessory muscles Auscultation: clear to auscultation bilaterally, no rales, no rhonchi and no wheezes Cardio Rate: regular rate Rhythm: regular rhythm Heart Sounds: no click, no gallops, no murmurs and no rubs Pulses: normal peripheral pulses Skin Other: 1.5 cm open lesion to the incision site have anterior right groin. No fluctuance or induration. No surrounding erythema. Slight serous drainage. Extrem Other: Right lower extremity nonswollen not erythematous. Skin graft area to right anterior tenorio appears to be healing with no signs of infection. Distal sensation diminished however intact not new finding secondary to neuropathy. Distal cap refill less than 2 sec. Distal range of motion intact. <Suleiman Mcgraw DO - Last Filed: 07/07/18 07:11> Initial Vital Signs Initial Vital Signs: Vital Signs Temperature 98.0 F 07/06/18 12:53 Pulse Rate 74 07/06/18 12:53 Respiratory Rate 18 07/06/18 12:53 Blood Pressure 112/53 L 07/06/18 12:53 Pulse Oximetry 99 07/06/18 12:53 Course <FRANCHESKA Turcios - Last Filed: 07/06/18 22:10> Orders Ordered: ED Orders 07/06/18 13:30 Wound Culture and Gram Stain Stat Vital Signs - 8 hr 07/06/18 12:53 Temperature 98.0 F Pulse Rate 74 Respiratory Rate 18 Blood Pressure 112/53 L Pulse Oximetry 99 <DO Angelica Cordova Last Filed: 07/07/18 07:11> Orders Ordered: ED Orders 07/06/18 13:30 Wound Culture and Gram Stain Stat Vital Signs - 8 hr 07/06/18 12:53 Temperature 98.0 F Pulse Rate 74 Respiratory Rate 18 Blood Pressure 112/53 L Pulse Oximetry 99 MDM - Skin/Abscess/Foreign Bdy <FRANCHESKA Turcios - Last Filed: 07/06/18 22:10> MDM Narrative Medical decision making narrative: Vital signs are stable. Do not appreciate infection at the area at this time. Opening appears to be mechanical most likely secondary to recent physical therapy where he was stretching area. Discussed case with Dr. Gore at vascular surgery at [facility] will like to see patient beginning of next week for re-evaluation. Wound culture of drainage from the right groin area is obtained and is pending. Simple dressing of bacitracin and gauze is placed on the dressing. Dress wound once or twice a day with bacitracin and dressing. Patient to call [facility] to schedule follow-up appointment next week. For any worsening symptoms or signs of infection return to the emergency room.. Discharge Plan Departure Patient Disposition: Home Clinical Impression: Encounter for examination of surgical site Discharge Date/Time: 07/06/18 14:26 Interventions: ED Discharge Assessment Last Done: 07/06/18 14:26 Instructions: How to Care for a Surgical Wound Activity Restrictions/Additional Instructions: Follow up with vascular surgery at [facility] beginning next week. Call the office and schedule appointment. Dress wound daily with bacitracin and a dressing. Limit activities that put stress to the incision site. For any worsening symptoms such as signs of infection or worsening drainage return to the emergency room. Culture has been obtained for drainage and is pending. Prescriptions: No Action aspirin 81 MG tablet,delayed release (DR/EC) 81 mg PO QPM Qty: 30 RF: 0 carvedilol [Coreg] 25 MG tablet 25 mg PO BID Qty: 0 RF: 0 diphenhydramine HCl [Diphedryl] 25 MG capsule 25 mg PO HSP PRN (Reason: Sleep) Qty: 0 RF: 0 hydrochlorothiazide 25 MG tablet 25 mg PO QPM Qty: 0 RF: 0 insulin glargine [Lantus Solostar U-100 Insulin] 100 UNIT/1 ML insulin pen 30 unit SQ HS Qty: 0 RF: 0 losartan 100 MG tablet 50 mg PO BID Qty: 0 RF: 0 insulin lispro [Humalog KwikPen Insulin] 100 UNIT/1 ML insulin pen 12 - 15 unit SQ BID Qty: 0 RF: 0 CoQ-10 1 cap PO QPM RF: 0 warfarin 2.5 mg Tablet 2.5 mg PO SUTUTHSA RF: 0 warfarin 5 mg Tablet 5 mg PO MOWEFR RF: 0 rosuvastatin 20 mg tablet 20 mg PO BEDTIME RF: 0 [id number]-[id number] [Krill Oil ([place] 3 and 6)] 1,500-165-67.5 mg Capsule 1 cap PO DAILY RF: 0 Referrals: Keaton Escalante MD [Primary Care Provider] - <Suleiman Mcgraw DO - Last Filed: 07/07/18 07:11> Cosign ED Attending Dorysature Attestation: I was available for consultation during this patient's emergency department encounter
[2018-07-06 13:58] VITALS: BP 111/66; PULSE 68; RESP 14; O2SAT 98
== END 2018-07-06 14:26 | disposition home or self-care (01) ==
PROVIDERS: Emergency Provider Nurse Practitioner Family; PCP Internal Medicine
DX: Z76.89 Persons encountering health services in other specified circumstances (principal)
CPT/HCPCS: 87070; 87205; 99282; 99283

== ENCOUNTER 2018-08-07 11:26 | Emergency (ER) | payer OTHER, SELFPAY ==
[2018-08-07 11:36] VITALS: BP 118/75; PULSE 78; RESP 14; TEMP 36.4; O2SAT 99; BMI 32.3
--- NOTE | 2018-08-07 11:43 | DI.RAD.S_ITS ---
PROCEDURE: XR SHOULDER LT MIN 2V INDICATIONS: atraumatic L shoulder pain, in ED waiting area. TECHNIQUE: 2 views of the shoulder were acquired. COMPARISON: None. FINDINGS: Bones: No fractures or dislocations. No suspicious bony lesions. There is moderate to severe acromioclavicular joint degeneration. Visualized ribs appear intact. Soft tissues: Small calcification over the humeral head suggesting calcific tendinitis. IMPRESSION: 1. 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 2. ? Calcific tendinitis. Dictated by: Moe An M.D. on 08/07/2018 at 12:18 Approved by: Moe An M.D. on 08/07/2018 at 12:20
--- NOTE | 2018-08-07 13:42 | ED.UPPEXIN ---
HPI - Extremity Injury (Upper) <FRANCHESKA Turcios - Last Filed: 08/07/18 22:01> General Chief Complaint: Extremity Injury, Upper Stated Complaint: left shoulder pain x3 days Time Seen by Provider: 08/07/18 13:42 Source: patient Mode of arrival: ambulatory Limitations: no limitations History of Present Illness HPI narrative: 67-year-old male with history of diabetes and is a former smoker here for complaint of left shoulder pain over the past few days. He denies any trauma to the left shoulder. He reports increased pain with motion of the left shoulder. Decreased pain with minimizing motion. He does state that he was moving several boxes at home a few days before the pain started. Pain is to the lateral superior aspect of the left shoulder. He denies any other injuries or concerns. Related Data Home Medications Medication Instructions Recorded Confirmed aspirin 81 mg PO QPM #30 tab 06/30/16 07/06/18 carvedilol [Coreg] 25 mg PO BID #0 06/30/16 07/06/18 diphenhydramine HCl [Diphedryl] 25 mg PO HSP PRN #0 06/30/16 07/06/18 hydrochlorothiazide 25 mg PO QPM #0 06/30/16 07/06/18 insulin glargine [Lantus Solostar 30 unit SQ HS #0 06/30/16 07/06/18 U-100 Insulin] insulin lispro [Humalog KwikPen 12 - 15 unit SQ BID #0 06/30/16 07/06/18 Insulin] losartan 50 mg PO BID #0 06/30/16 07/06/18 CoQ-10 1 cap PO QPM 05/24/18 07/06/18 warfarin 2.5 mg PO SUTUTHSA 05/24/18 07/06/18 warfarin 5 mg PO MOWEFR 05/24/18 07/06/18 [id number]-pnn-[id number] 1 cap PO DAILY 07/06/18 07/06/18 [Krill Oil ([place] 3 and 6)] rosuvastatin 10 mg PO BEDTIME 07/06/18 08/07/18 doxycycline hyclate 100 mg PO [id number] 08/07/18 08/07/18 Previous Rx's Medication Instructions Recorded cyclobenzaprine 10 mg PO TID PRN #10 tab 08/07/18 Allergies Allergy/AdvReac Type Severity Reaction Status Date / Time atenolol Allergy Unknown Verified 05/24/18 15:00 atorvastatin Allergy Unknown Hives Verified 05/24/18 15:00 clopidogrel Allergy Unknown Hives Verified 05/24/18 15:00 Review of Systems <FRANCHESKA Turcios - Last Filed: 08/07/18 22:01> Constitutional Denies chills, Denies fever(s), Denies lethargy and Denies weakness Eyes Denies change in vision, Denies eye discharge, Denies irritation and Denies loss of vision ENT Ears, Nose, Mouth, and Throat: Denies change in voice, Denies neck pain and Denies sore throat Cardiovascular Denies chest pain, Denies irregular heart rhythm, Denies lightheadedness, Denies palpitations, Denies dyspnea, Denies dyspnea on exertion and Denies orthopnea Respiratory Denies cough, Denies dyspnea, Denies dyspnea on exertion and Denies wheezing Genitourinary Denies hematuria, Denies flank pain, Denies urinary incontinence and Denies urinary urgency Musculoskeletal Denies neck pain Comments: Left shoulder pain Integumentary/Breasts Denies pruritus, Denies erythema, Denies rash and Denies wounds Neurologic Denies confusion, Denies loss of vision and Denies weakness Psychiatric Denies anxiety, Denies confusion, Denies depression, Denies homicidal ideation and Denies suicidal ideation Endocrine Denies palpitations Hematologic/Lymphatic Denies easy bruising Allergic/Immunologic Denies wheezing Exam <FRANCHESKA Turcios - Last Filed: 08/07/18 22:01> Initial Vital Signs Initial Vital Signs: Vital Signs Temperature 97.6 F 08/07/18 11:36 Pulse Rate 78 08/07/18 11:36 Respiratory Rate 14 08/07/18 11:36 Blood Pressure 118/75 08/07/18 11:36 Pulse Oximetry 99 08/07/18 11:36 Const General: cooperative and well developed Nutritional Appearance: well nourished Orientation: alert, awake, oriented x3 and not confused HENMT Mouth: oral mucosae normal and moist mucous membranes Eyes Conjunctivae: conjunctivae normal Sclera: sclerae normal Pupils: PERRL EOM: EOM intact bilaterally Neck Neck: normal visual inspection, trachea midline, No lymphadenopathy, No midline deformity and No JVD Lymphatic: No lymphedema Chest Chest: normal inspection of the chest Resp Effort & Inspection: normal respiratory effort, able to speak in complete sentences, no respiratory distress and no use of accessory muscles Auscultation: clear to auscultation bilaterally, no rales, no rhonchi and no wheezes Cardio Rate: regular rate Rhythm: regular rhythm Heart Sounds: no click, no gallops, no murmurs and no rubs Pulses: normal peripheral pulses Skin General: no rashes or lesions noted, No jaundice and No petechiae Neuro General: alert, oriented x3, gait normal and no focal motor deficits Speech: speech normal Extrem Other: Tenderness on palpation to the left shoulder area radiating up into the trapezius area. Decreased range of motion due to discomfort. Passive range of motion of the shoulder is painful for the patient as well. No deformities. No ecchymosis. No erythema. Distal sensation is intact. Distal pulses are intact. Distal range of motion is intact. <Vaishali Baptiste MD - Last Filed: 08/08/18 07:39> Initial Vital Signs Initial Vital Signs: Vital Signs Temperature 97.6 F 08/07/18 11:36 Pulse Rate 78 08/07/18 11:36 Respiratory Rate 14 08/07/18 11:36 Blood Pressure 118/75 08/07/18 11:36 Pulse Oximetry 99 08/07/18 11:36 Course <FRANCHESKA Turcios - Last Filed: 08/07/18 22:01> Orders Ordered: ED Orders 08/07/18 11:43 XR shoulder LT min 2V Stat Vital Signs - 8 hr 08/07/18 11:36 Temperature 97.6 F Pulse Rate 78 Respiratory Rate 14 Blood Pressure 118/75 Pulse Oximetry 99 <Vaishali Baptiste MD - Last Filed: 08/08/18 07:39> Orders Ordered: ED Orders 08/07/18 11:43 XR shoulder LT min 2V Stat Vital Signs - 8 hr 08/07/18 11:36 Temperature 97.6 F Pulse Rate 78 Respiratory Rate 14 Blood Pressure 118/75 Pulse Oximetry 99 MDM - Extremity Injury (Upper) <FRANCHESKA Turcios - Last Filed: 08/07/18 22:01> Imaging Data Left shoulder: Radiologist's impression: [address] [address] XRay Report Signed Patient: Jimbo John VMR#: [id number] : 1950Acct:[id number] Age/Sex: 67 / MDate of Service: 08/07/18 Loc: ED Accession Number: [id number] Procedure: XR shoulder LT min 2V Ordering Provider: Vaishali Baptiste MD PROCEDURE: XR SHOULDER LT MIN 2V INDICATIONS: atraumatic L shoulder pain, in ED waiting area. TECHNIQUE: 2 views of the shoulder were acquired. COMPARISON: None. FINDINGS: Bones: No fractures or dislocations. No suspicious bony lesions. There is moderate to severe acromioclavicular joint degeneration. Visualized ribs appear intact. Soft tissues: Small calcification over the humeral head suggesting calcific tendinitis. IMPRESSION: 1. 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 2. ? Calcific tendinitis. Dictated by: Moe An M.D. on 08/07/2018 at 12:18 Approved by: Moe An M.D. on 08/07/2018 at 12:20 [facility] Narrative Medical decision making narrative: X-ray of the left shoulder was obtained was negative for any acute dislocations or fractures. X-ray does show moderate to severe joint degeneration to the left shoulder. Signs and symptoms presents as acute strain/sprain to the left shoulder. [id number] ibuprofen as needed for discomfort anti-inflammatory effects. He is prescribed cyclobenzaprine to help with any muscle tension secondary to strain. Follow up with primary care provider in the next few days for re-evaluation. If continued pain does not resolve MRI may be needed. Gentle range of motion to left shoulder to help keep shoulder loose. Return emergency room for any worsening symptoms. Discharge Plan Departure Patient Disposition: Home Clinical Impression: Sprain of left shoulder Discharge Date/Time: 08/07/18 14:30 Interventions: ED Discharge Assessment Last Done: 08/07/18 14:29 Instructions: DI for Shoulder Pain Activity Restrictions/Additional Instructions: X-ray of the left shoulder was obtained was negative for any acute dislocations or fractures. X-ray does show moderate to severe joint degeneration to the left shoulder. Signs and symptoms presents as acute strain/sprain to the left shoulder. Use [id number] ibuprofen as needed for discomfort and anti-inflammatory effects. You are prescribed cyclobenzaprine a muscle relaxer to help with any muscle tension secondary to strain. No driving while on the muscle relaxer as a can make you drowsy. Do not use muscle relaxer and conjunction with narcotic pain medication. Follow up with primary care provider in the next few days for re-evaluation. If continued pain does not resolve MRI may be needed. Gentle range of motion to left shoulder to help keep shoulder loose. Return emergency room for any worsening symptoms. Prescriptions: New cyclobenzaprine 10 mg tablet 10 mg PO TID PRN (Reason: muscle spasm) Qty: 10 RF: 0 No Action aspirin 81 MG tablet,delayed release (DR/EC) 81 mg PO QPM Qty: 30 RF: 0 carvedilol [Coreg] 25 MG tablet 25 mg PO BID Qty: 0 RF: 0 diphenhydramine HCl [Diphedryl] 25 MG capsule 25 mg PO HSP PRN (Reason: Sleep) Qty: 0 RF: 0 hydrochlorothiazide 25 MG tablet 25 mg PO QPM Qty: 0 RF: 0 insulin glargine [Lantus Solostar U-100 Insulin] 100 UNIT/1 ML insulin pen 30 unit SQ HS Qty: 0 RF: 0 losartan 100 MG tablet 50 mg PO BID Qty: 0 RF: 0 insulin lispro [Humalog KwikPen Insulin] 100 UNIT/1 ML insulin pen 12 - 15 unit SQ BID Qty: 0 RF: 0 CoQ-10 1 cap PO QPM RF: 0 warfarin 2.5 mg Tablet 2.5 mg PO SUTUTHSA RF: 0 warfarin 5 mg Tablet 5 mg PO MOWEFR RF: 0 doxycycline hyclate 100 mg capsule 100 mg PO [id number] RF: 0 rosuvastatin 20 mg tablet 10 mg PO BEDTIME RF: 0 [id number]-[id number] [Krill Oil ([place] 3 and 6)] 1,500-165-67.5 mg Capsule 1 cap PO DAILY RF: 0 Referrals: Keaton Escalante MD [Primary Care Provider] -
--- NOTE | 2018-08-07 14:19 | ED_ITS ---
HPI - Extremity Injury (Upper) <FRANCHESKA Turcios - Last Filed: 08/07/18 22:01> General Chief Complaint: Extremity Injury, Upper Stated Complaint: left shoulder pain x3 days Time Seen by Provider: 08/07/18 13:42 Source: patient Mode of arrival: ambulatory Limitations: no limitations History of Present Illness HPI narrative: 67-year-old male with history of diabetes and is a former smoker here for complaint of left shoulder pain over the past few days. He denies any trauma to the left shoulder. He reports increased pain with motion of the left shoulder. Decreased pain with minimizing motion. He does state that he was moving several boxes at home a few days before the pain started. Pain is to the lateral superior aspect of the left shoulder. He denies any other injuries or concerns. Related Data Home Medications Medication Instructions Recorded Confirmed aspirin 81 mg PO QPM #30 tab 06/30/16 07/06/18 carvedilol [Coreg] 25 mg PO BID #0 06/30/16 07/06/18 diphenhydramine HCl [Diphedryl] 25 mg PO HSP PRN #0 06/30/16 07/06/18 hydrochlorothiazide 25 mg PO QPM #0 06/30/16 07/06/18 insulin glargine [Lantus Solostar 30 unit SQ HS #0 06/30/16 07/06/18 U-100 Insulin] insulin lispro [Humalog KwikPen 12 - 15 unit SQ BID #0 06/30/16 07/06/18 Insulin] losartan 50 mg PO BID #0 06/30/16 07/06/18 CoQ-10 1 cap PO QPM 05/24/18 07/06/18 warfarin 2.5 mg PO SUTUTHSA 05/24/18 07/06/18 warfarin 5 mg PO MOWEFR 05/24/18 07/06/18 [id number]-[id number]-[id number]-idd-[id number] 1 cap PO DAILY 07/06/18 07/06/18 [Krill Oil (Spart[place] 3 and 6)] rosuvastatin 10 mg PO BEDTIME 07/06/18 08/07/18 doxycycline hyclate 100 mg PO [id number] 08/07/18 08/07/18 Previous Rx's Medication Instructions Recorded cyclobenzaprine 10 mg PO TID PRN #10 tab 08/07/18 Allergies Allergy/AdvReac Type Severity Reaction Status Date / Time atenolol Allergy Unknown Verified 05/24/18 15:00 atorvastatin Allergy Unknown Hives Verified 05/24/18 15:00 clopidogrel Allergy Unknown Hives Verified 05/24/18 15:00 Review of Systems <FRANCHESKA Turcios - Last Filed: 08/07/18 22:01> Constitutional Denies chills, Denies fever(s), Denies lethargy and Denies weakness Eyes Denies change in vision, Denies eye discharge, Denies irritation and Denies loss of vision ENT Ears, Nose, Mouth, and Throat: Denies change in voice, Denies neck pain and Denies sore throat Cardiovascular Denies chest pain, Denies irregular heart rhythm, Denies lightheadedness, Denies palpitations, Denies dyspnea, Denies dyspnea on exertion and Denies orthopnea Respiratory Denies cough, Denies dyspnea, Denies dyspnea on exertion and Denies wheezing Genitourinary Denies hematuria, Denies flank pain, Denies urinary incontinence and Denies urinary urgency Musculoskeletal Denies neck pain Comments: Left shoulder pain Integumentary/Breasts Denies pruritus, Denies erythema, Denies rash and Denies wounds Neurologic Denies confusion, Denies loss of vision and Denies weakness Psychiatric Denies anxiety, Denies confusion, Denies depression, Denies homicidal ideation and Denies suicidal ideation Endocrine Denies palpitations Hematologic/Lymphatic Denies easy bruising Allergic/Immunologic Denies wheezing Exam <FRANCHESKA Turcios - Last Filed: 08/07/18 22:01> Initial Vital Signs Initial Vital Signs: Vital Signs Temperature 97.6 F 08/07/18 11:36 Pulse Rate 78 08/07/18 11:36 Respiratory Rate 14 08/07/18 11:36 Blood Pressure 118/75 08/07/18 11:36 Pulse Oximetry 99 08/07/18 11:36 Const General: cooperative and well developed Nutritional Appearance: well nourished Orientation: alert, awake, oriented x3 and not confused HENMT Mouth: oral mucosae normal and moist mucous membranes Eyes Conjunctivae: conjunctivae normal Sclera: sclerae normal Pupils: PERRL EOM: EOM intact bilaterally Neck Neck: normal visual inspection, trachea midline, No lymphadenopathy, No midline deformity and No JVD Lymphatic: No lymphedema Chest Chest: normal inspection of the chest Resp Effort & Inspection: normal respiratory effort, able to speak in complete sentences, no respiratory distress and no use of accessory muscles Auscultation: clear to auscultation bilaterally, no rales, no rhonchi and no wheezes Cardio Rate: regular rate Rhythm: regular rhythm Heart Sounds: no click, no gallops, no murmurs and no rubs Pulses: normal peripheral pulses Skin General: no rashes or lesions noted, No jaundice and No petechiae Neuro General: alert, oriented x3, gait normal and no focal motor deficits Speech: speech normal Extrem Other: Tenderness on palpation to the left shoulder area radiating up into the trapezius area. Decreased range of motion due to discomfort. Passive range of motion of the shoulder is painful for the patient as well. No deformities. No ecchymosis. No erythema. Distal sensation is intact. Distal pulses are intact. Distal range of motion is intact. <Vaishali Baptiste MD - Last Filed: 08/08/18 07:39> Initial Vital Signs Initial Vital Signs: Vital Signs Temperature 97.6 F 08/07/18 11:36 Pulse Rate 78 08/07/18 11:36 Respiratory Rate 14 08/07/18 11:36 Blood Pressure 118/75 08/07/18 11:36 Pulse Oximetry 99 08/07/18 11:36 Course <FRANCHESKA Turcios - Last Filed: 08/07/18 22:01> Orders Ordered: ED Orders 08/07/18 11:43 XR shoulder LT min 2V Stat Vital Signs - 8 hr 08/07/18 11:36 Temperature 97.6 F Pulse Rate 78 Respiratory Rate 14 Blood Pressure 118/75 Pulse Oximetry 99 <Vaishali Baptiste MD - Last Filed: 08/08/18 07:39> Orders Ordered: ED Orders 08/07/18 11:43 XR shoulder LT min 2V Stat Vital Signs - 8 hr 08/07/18 11:36 Temperature 97.6 F Pulse Rate 78 Respiratory Rate 14 Blood Pressure 118/75 Pulse Oximetry 99 MDM - Extremity Injury (Upper) <FRANCHESKA Turcios - Last Filed: 08/07/18 22:01> Imaging Data Left shoulder: Radiologist's impression: [address] [address] XRay Report Signed Patient: Jimbo John VMR#: [id number] : 1950Acct:[id number] Age/Sex: 67 / MDate of Service: 08/07/18 Loc: ED Accession Number: [id number] Procedure: XR shoulder LT min 2V Ordering Provider: Vaishali Baptiste MD PROCEDURE: XR SHOULDER LT MIN 2V INDICATIONS: atraumatic L shoulder pain, in ED waiting area. TECHNIQUE: 2 views of the shoulder were acquired. COMPARISON: None. FINDINGS: Bones: No fractures or dislocations. No suspicious bony lesions. There is moderate to severe acromioclavicular joint degeneration. Visualized ribs appear intact. Soft tissues: Small calcification over the humeral head suggesting calcific tendinitis. IMPRESSION: 1. 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 2. ? Calcific tendinitis. Dictated by: Moe An M.D. on 08/07/2018 at 12:18 Approved by: Moe An M.D. on 08/07/2018 at 12:20 [facility] Narrative Medical decision making narrative: X-ray of the left shoulder was obtained was negative for any acute dislocations or fractures. X-ray does show moderate to severe joint degeneration to the left shoulder. Signs and symptoms presents as acute strain/sprain to the left shoulder. Kykn-ygs-lexammq ibuprofen as needed for discomfort anti-inflammatory effects. He is prescribed cyclobenzaprine to help with any muscle tension secondary to strain. Follow up with primary care provider in the next few days for re-evaluation. If continued pain does not resolve MRI may be needed. Gentle range of motion to left shoulder to help keep shoulder loose. Return emergency room for any worsening symptoms. Discharge Plan Departure Patient Disposition: Home Clinical Impression: Sprain of left shoulder Discharge Date/Time: 08/07/18 14:30 Interventions: ED Discharge Assessment Last Done: 08/07/18 14:29 Instructions: DI for Shoulder Pain Activity Restrictions/Additional Instructions: X-ray of the left shoulder was obtained was negative for any acute dislocations or fractures. X-ray does show moderate to severe joint degeneration to the left shoulder. Signs and symptoms presents as acute strain/sprain to the left shoulder. Use xlkb-yii-cnqtmbn ibuprofen as needed for discomfort and anti- inflammatory effects. You are prescribed cyclobenzaprine a muscle relaxer to help with any muscle tension secondary to strain. No driving while on the muscle relaxer as a can make you drowsy. Do not use muscle relaxer and conjunction with narcotic pain medication. Follow up with primary care provider in the next few days for re-evaluation. If continued pain does not resolve MRI may be needed. Gentle range of motion to left shoulder to help keep shoulder loose. Return emergency room for any worsening symptoms. Prescriptions: New cyclobenzaprine 10 mg tablet 10 mg PO TID PRN (Reason: muscle spasm) Qty: 10 RF: 0 No Action aspirin 81 MG tablet,delayed release (DR/EC) 81 mg PO QPM Qty: 30 RF: 0 carvedilol [Coreg] 25 MG tablet 25 mg PO BID Qty: 0 RF: 0 diphenhydramine HCl [Diphedryl] 25 MG capsule 25 mg PO HSP PRN (Reason: Sleep) Qty: 0 RF: 0 hydrochlorothiazide 25 MG tablet 25 mg PO QPM Qty: 0 RF: 0 insulin glargine [Lantus Solostar U-100 Insulin] 100 UNIT/1 ML insulin pen 30 unit SQ HS Qty: 0 RF: 0 losartan 100 MG tablet 50 mg PO BID Qty: 0 RF: 0 insulin lispro [Humalog KwikPen Insulin] 100 UNIT/1 ML insulin pen 12 - 15 unit SQ BID Qty: 0 RF: 0 CoQ-10 1 cap PO QPM RF: 0 warfarin 2.5 mg Tablet 2.5 mg PO SUTUTHSA RF: 0 warfarin 5 mg Tablet 5 mg PO MOWEFR RF: 0 doxycycline hyclate 100 mg capsule 100 mg PO BIDX14 RF: 0 rosuvastatin 20 mg tablet 10 mg PO BEDTIME RF: 0 [id number]-[id number]-eyc-bij-[id number]-fsi-astx [Krill Oil (Spart[place] 3 and 6)] 1,500-165-67.5 mg Capsule 1 cap PO DAILY RF: 0 Referrals: Keaton Escalante MD [Primary Care Provider] -
== END 2018-08-07 14:30 | disposition home or self-care (01) ==
PROVIDERS: Emergency Provider Nurse Practitioner Family; PCP Internal Medicine
DX: S43.402A Unspecified sprain of left shoulder joint, initial encounter (principal); X50.0XXA Overexertion from strenuous movement or load, initial encounter
CPT/HCPCS: 73030; 99282; 99283

== ENCOUNTER → 2018-12-15 12:00 | Outpatient (REF) | payer OTHER, SELFPAY ==
[2018-12-15 12:22] LABS: Estimated Glomerular Filt Rate > 60.0 mL/min (>60)
[2018-12-15 12:28] LABS: Vancomycin Trough 13.6 ug/mL (10-20)
[2018-12-15 13:26] LABS: INR 1.6 (0.9-1.3); Prothrombin Time 18.3 SECONDS (10.1-12.7)
== END ==
LOC: LAB 12:00
PROVIDERS: PCP Internal Medicine; Visit Provider Internal Medicine
DX: T82.7XXD Infection and inflammatory reaction due to other cardiac and vascular devices, implants and grafts, subsequent encounter (principal); E11.8 Type 2 diabetes mellitus with unspecified complications
CPT/HCPCS: 80202; 82565; 85610

== ENCOUNTER → 2018-12-20 11:07 | Outpatient (CLI) | payer OTHER, SELFPAY ==
[2018-12-20 11:22] LABS: Add Manual Diff / Slide Review NO; Basophils Absolute Auto 200 /uL (0-100); Eosinophils Absolute Auto 300 /uL (0-450); Eosinophils Percent Auto 2.7 % (2-4); Hematocrit 32.6 % (41-53); Hemoglobin 10.7 g/dL (13.5-17.5); Lymphocytes Absolute Auto 1000 /uL (1100-4500); Mean Corpuscular HGB Conc 32.7 % (30-36); Mean Corpuscular Hemoglobin 28.9 PG (26-34); Mean Corpuscular Volume 88.1 fL (80-100); Monocytes Absolute Auto 700 /uL (0-900); Monocytes Percent Auto 7.9 % (3-14); Neutrophils Absolute Auto 7300 /uL (1500-7000); Neutrophils Percent Auto 76.4 % (50-75); Platelet Count 256 X10^3/uL (150-400); Red Cell Distribution Width 16.3 % (11.6-14.8); White Blood Cell Count 9.5 X10^3/uL (4.5-11.0)
[2018-12-20 12:05] LABS: Alanine Aminotransferase 33 IU/L (21-72); Albumin 3.5 g/dL (3.5-5.0); Albumin Globulin Ratio 1.1 (1.0-2.8); Alkaline Phosphatase 82 U/L (38-126); Aspartate Aminotransferase 20 IU/L (17-59); BUN Creatinine Ratio 37.8 (6-22); Bilirubin Total 0.4 mg/dL (0.2-1.3); Blood Urea Nitrogen 34 mg/dL (9-20); C-Reactive Protein Quant 1.9 mg/dL (<1.0); Calcium 8.8 mg/dL (8.4-10.2); Carbon Dioxide 23 mmol/L (22-32); Chloride 105 mmol/L (98-107); Estimated Glomerular Filt Rate > 60.0 mL/min (>60); Globulin 3.1 g/dL (1.7-4.1); Glucose 139 mg/dL (80-110); HEMOLYSIS < 15 (0-50); Potassium 4.2 mmol/L (3.4-5.1); Sodium 138 mmol/L (137-145); Total Protein 6.6 g/dL (6.3-8.2)
[2018-12-20 12:08] LABS: Vancomycin Trough 14.9 ug/mL (10-20)
[2018-12-20 12:09] LABS: Erythrocyte Sedimentation Rate 13 MM/HR (0-15)
== END ==
PROVIDERS: PCP Internal Medicine; Visit Provider Internal Medicine
DX: E11.8 Type 2 diabetes mellitus with unspecified complications (principal); T82.7XXD Infection and inflammatory reaction due to other cardiac and vascular devices, implants and grafts, subsequent encounter
CPT/HCPCS: 80053; 80202; 85025; 85651; 86140

== ENCOUNTER → 2018-12-27 10:01 | Outpatient (CLI) | payer OTHER, SELFPAY ==
[2018-12-27 10:33] LABS: Add Manual Diff / Slide Review NO; Basophils Absolute Auto 100 /uL (0-100); Basophils Percent Auto 1.3 % (0-2); Eosinophils Absolute Auto 200 /uL (0-450); Eosinophils Percent Auto 2.7 % (2-4); Hemoglobin 11.5 g/dL (13.5-17.5); Lymphocytes Absolute Auto 1200 /uL (1100-4500); Lymphocytes Percent Auto 16.9 % (25-40); Mean Corpuscular HGB Conc 33.9 % (30-36); Mean Corpuscular Hemoglobin 29.1 PG (26-34); Mean Corpuscular Volume 85.7 fL (80-100); Monocytes Absolute Auto 500 /uL (0-900); Monocytes Percent Auto 7.6 % (3-14); Neutrophils Absolute Auto 5100 /uL (1500-7000); Neutrophils Percent Auto 71.5 % (50-75); Platelet Count 249 X10^3/uL (150-400); Red Blood Cell Count 3.97 X10^6/uL (4.5-5.9); Red Cell Distribution Width 16.5 % (11.6-14.8); White Blood Cell Count 7.1 X10^3/uL (4.5-11.0)
[2018-12-27 10:35] LABS: Alanine Aminotransferase 34 IU/L (21-72); Albumin 3.7 g/dL (3.5-5.0); Albumin Globulin Ratio 1.2 (1.0-2.8); Alkaline Phosphatase 89 U/L (38-126); Aspartate Aminotransferase 21 IU/L (17-59); BUN Creatinine Ratio 31.4 (6-22); Bilirubin Total 0.5 mg/dL (0.2-1.3); Blood Urea Nitrogen 22 mg/dL (9-20); C-Reactive Protein Quant 1.9 mg/dL (<1.0); Calcium 9.2 mg/dL (8.4-10.2); Carbon Dioxide 27 mmol/L (22-32); Chloride 100 mmol/L (98-107); Estimated Glomerular Filt Rate > 60.0 mL/min (>60); Globulin 3.2 g/dL (1.7-4.1); Glucose 124 mg/dL (80-110); HEMOLYSIS < 15 (0-50); Potassium 4.2 mmol/L (3.4-5.1); Sodium 136 mmol/L (137-145); Total Protein 6.9 g/dL (6.3-8.2)
[2018-12-27 10:36] LABS: Vancomycin Trough 15.3 ug/mL (10-20)
[2018-12-27 10:47] LABS: Erythrocyte Sedimentation Rate 67 MM/HR (0-15)
== END ==
PROVIDERS: Visit Provider Internal Medicine
DX: T82.7XXD Infection and inflammatory reaction due to other cardiac and vascular devices, implants and grafts, subsequent encounter (principal); E11.8 Type 2 diabetes mellitus with unspecified complications
CPT/HCPCS: 80053; 80202; 85025; 85651; 86140

== ENCOUNTER → 2019-01-03 10:11 | Outpatient (CLI) | payer OTHER, SELFPAY ==
[2019-01-03 10:37] LABS: Add Manual Diff / Slide Review NO; Basophils Absolute Auto 0 /uL (0-100); Basophils Percent Auto 0.7 % (0-2); Eosinophils Absolute Auto 200 /uL (0-450); Eosinophils Percent Auto 2.7 % (2-4); Hematocrit 33.1 % (41-53); Hemoglobin 10.9 g/dL (13.5-17.5); Lymphocytes Absolute Auto 1100 /uL (1100-4500); Lymphocytes Percent Auto 14.2 % (25-40); Mean Corpuscular HGB Conc 32.8 % (30-36); Mean Corpuscular Hemoglobin 28.7 PG (26-34); Mean Corpuscular Volume 87.6 fL (80-100); Monocytes Absolute Auto 700 /uL (0-900); Monocytes Percent Auto 8.7 % (3-14); Neutrophils Absolute Auto 5600 /uL (1500-7000); Neutrophils Percent Auto 73.7 % (50-75); Platelet Count 190 X10^3/uL (150-400); Red Blood Cell Count 3.78 X10^6/uL (4.5-5.9); Red Cell Distribution Width 16.2 % (11.6-14.8); White Blood Cell Count 7.6 X10^3/uL (4.5-11.0)
[2019-01-03 10:56] LABS: Erythrocyte Sedimentation Rate 103 MM/HR (0-15)
[2019-01-03 11:41] LABS: Alanine Aminotransferase 34 IU/L (21-72); Albumin 3.4 g/dL (3.5-5.0); Albumin Globulin Ratio 1.1 (1.0-2.8); Alkaline Phosphatase 84 U/L (38-126); Aspartate Aminotransferase 22 IU/L (17-59); BUN Creatinine Ratio 43.3 (6-22); Bilirubin Total 0.5 mg/dL (0.2-1.3); Blood Urea Nitrogen 39 mg/dL (9-20); Calcium 8.8 mg/dL (8.4-10.2); Carbon Dioxide 24 mmol/L (22-32); Chloride 101 mmol/L (98-107); Estimated Glomerular Filt Rate > 60.0 mL/min (>60); Globulin 3.2 g/dL (1.7-4.1); Glucose 156 mg/dL (80-110); HEMOLYSIS < 15 (0-50); Potassium 4.2 mmol/L (3.4-5.1); Sodium 136 mmol/L (137-145); Total Protein 6.6 g/dL (6.3-8.2)
[2019-01-03 11:52] LABS: C-Reactive Protein Quant 11.9 mg/dL (<1.0)
[2019-01-04 14:32] LABS: Vancomycin Trough 19.1 ug/mL (10-20)
== END ==
PROVIDERS: Visit Provider Internal Medicine
DX: T82.7XXD Infection and inflammatory reaction due to other cardiac and vascular devices, implants and grafts, subsequent encounter (principal); E11.8 Type 2 diabetes mellitus with unspecified complications
CPT/HCPCS: 80053; 80202; 85025; 85651; 86140

== ENCOUNTER → 2019-04-20 10:51 | Outpatient (CLI) | payer OTHER, SELFPAY ==
[2019-04-20 11:30] LABS: Estimated Glomerular Filt Rate > 60.0 mL/min (>60)
[2019-04-20 11:35] LABS: Vancomycin Trough 14.3 ug/mL (10-20)
== END ==
PROVIDERS: PCP Family Medicine; Visit Provider Internal Medicine
DX: M86.9 Osteomyelitis, unspecified (principal); T82.7XXD Infection and inflammatory reaction due to other cardiac and vascular devices, implants and grafts, subsequent encounter
CPT/HCPCS: 80202; 82565

== ENCOUNTER → 2019-04-23 10:28 | Outpatient (ROUT) | payer OTHER, SELFPAY ==
[2019-04-23 10:34] LABS: Add Manual Diff / Slide Review NO; Basophils Absolute Auto 100 /uL (0-100); Basophils Percent Auto 0.8 % (0-2); Eosinophils Absolute Auto 300 /uL (0-450); Eosinophils Percent Auto 4.3 % (2-4); Hematocrit 38.5 % (41-53); Lymphocytes Absolute Auto 1100 /uL (1100-4500); Lymphocytes Percent Auto 17.3 % (25-40); Mean Corpuscular HGB Conc 33.9 % (30-36); Mean Corpuscular Hemoglobin 28.5 PG (26-34); Mean Corpuscular Volume 84.1 fL (80-100); Monocytes Absolute Auto 600 /uL (0-900); Monocytes Percent Auto 8.5 % (3-14); Neutrophils Absolute Auto 4600 /uL (1500-7000); Neutrophils Percent Auto 69.1 % (50-75); Platelet Count 157 X10^3/uL (150-400); Red Blood Cell Count 4.58 X10^6/uL (4.5-5.9); White Blood Cell Count 6.6 X10^3/uL (4.5-11.0)
[2019-04-23 10:49] LABS: Alanine Aminotransferase 27 IU/L (21-72); Albumin 3.8 g/dL (3.5-5.0); Albumin Globulin Ratio 1.2 (1.0-2.8); Alkaline Phosphatase 87 U/L (38-126); Aspartate Aminotransferase 23 IU/L (17-59); BUN Creatinine Ratio 35.7 (6-22); Bilirubin Total 0.5 mg/dL (0.2-1.3); Blood Urea Nitrogen 25 mg/dL (9-20); C-Reactive Protein Quant 0.6 mg/dL (<1.0); Calcium 9.2 mg/dL (8.4-10.2); Carbon Dioxide 26 mmol/L (22-32); Chloride 103 mmol/L (98-107); Estimated Glomerular Filt Rate > 60.0 mL/min (>60); Globulin 3.2 g/dL (1.7-4.1); Glucose 116 mg/dL (80-110); HEMOLYSIS < 15 (0-50); Potassium 3.9 mmol/L (3.4-5.1); Sodium 138 mmol/L (137-145)
[2019-04-23 10:59] LABS: Erythrocyte Sedimentation Rate 17 MM/HR (0-15)
== END ==
PROVIDERS: PCP Family Medicine; Visit Provider Internal Medicine
DX: M86.9 Osteomyelitis, unspecified (principal); T82.7XXD Infection and inflammatory reaction due to other cardiac and vascular devices, implants and grafts, subsequent encounter
CPT/HCPCS: 80053; 80202; 85025; 85651; 86140

== ENCOUNTER → 2019-04-30 10:29 | Outpatient (ROUT) | payer OTHER, SELFPAY ==
[2019-04-30 10:36] LABS: Add Manual Diff / Slide Review NO; Basophils Absolute Auto 100 /uL (0-100); Eosinophils Absolute Auto 200 /uL (0-450); Eosinophils Percent Auto 3.9 % (2-4); Hematocrit 37.8 % (41-53); Hemoglobin 12.5 g/dL (13.5-17.5); Lymphocytes Absolute Auto 1000 /uL (1100-4500); Lymphocytes Percent Auto 20.3 % (25-40); Mean Corpuscular HGB Conc 33.1 % (30-36); Mean Corpuscular Volume 84.6 fL (80-100); Monocytes Absolute Auto 500 /uL (0-900); Monocytes Percent Auto 10.6 % (3-14); Neutrophils Absolute Auto 3300 /uL (1500-7000); Neutrophils Percent Auto 64.2 % (50-75); Platelet Count 173 X10^3/uL (150-400); Red Blood Cell Count 4.47 X10^6/uL (4.5-5.9); Red Cell Distribution Width 17.3 % (11.6-14.8); White Blood Cell Count 5.1 X10^3/uL (4.5-11.0)
[2019-04-30 10:51] LABS: Alanine Aminotransferase 21 IU/L (21-72); Albumin 3.7 g/dL (3.5-5.0); Albumin Globulin Ratio 1.2 (1.0-2.8); Alkaline Phosphatase 85 U/L (38-126); Aspartate Aminotransferase 18 IU/L (17-59); BUN Creatinine Ratio 38.8 (6-22); Bilirubin Total 0.5 mg/dL (0.2-1.3); Blood Urea Nitrogen 31 mg/dL (9-20); Calcium 9.3 mg/dL (8.4-10.2); Carbon Dioxide 24 mmol/L (22-32); Chloride 105 mmol/L (98-107); Estimated Glomerular Filt Rate > 60.0 mL/min (>60); Globulin 3.2 g/dL (1.7-4.1); Glucose 156 mg/dL (80-110); HEMOLYSIS < 15 (0-50); Potassium 4.1 mmol/L (3.4-5.1); Sodium 139 mmol/L (137-145); Total Protein 6.9 g/dL (6.3-8.2)
[2019-04-30 10:54] LABS: Vancomycin Trough 18.3 ug/mL (10-20)
[2019-04-30 10:55] LABS: Erythrocyte Sedimentation Rate 18 MM/HR (0-15)
[2019-04-30 11:02] LABS: C-Reactive Protein Quant < 0.5 mg/dL (<1.0)
== END ==
PROVIDERS: PCP Family Medicine; Visit Provider Internal Medicine
DX: M86.9 Osteomyelitis, unspecified (principal); T82.7XXD Infection and inflammatory reaction due to other cardiac and vascular devices, implants and grafts, subsequent encounter
CPT/HCPCS: 80053; 80202; 85025; 85651; 86140

== ENCOUNTER → 2019-05-07 10:33 | Outpatient (ROUT) | payer OTHER, SELFPAY ==
[2019-05-07 10:59] LABS: Alanine Aminotransferase 15 IU/L (21-72); Albumin 3.7 g/dL (3.5-5.0); Albumin Globulin Ratio 1.1 (1.0-2.8); Alkaline Phosphatase 80 U/L (38-126); Aspartate Aminotransferase 16 IU/L (17-59); BUN Creatinine Ratio 43.8 (6-22); Bilirubin Total 0.5 mg/dL (0.2-1.3); Blood Urea Nitrogen 35 mg/dL (9-20); C-Reactive Protein Quant 0.6 mg/dL (<1.0); Calcium 9.5 mg/dL (8.4-10.2); Carbon Dioxide 24 mmol/L (22-32); Chloride 104 mmol/L (98-107); Estimated Glomerular Filt Rate > 60.0 mL/min (>60); Globulin 3.3 g/dL (1.7-4.1); Glucose 110 mg/dL (80-110); HEMOLYSIS < 15 (0-50); Potassium 3.9 mmol/L (3.4-5.1); Sodium 139 mmol/L (137-145); Vancomycin Trough 19.6 ug/mL (10-20)
[2019-05-07 11:08] LABS: Erythrocyte Sedimentation Rate 18 MM/HR (0-15)
[2019-05-08 13:37] LABS: Add Manual Diff / Slide Review NO; Basophils Absolute Auto 100 /uL (0-100); Basophils Percent Auto 0.9 % (0-2); Eosinophils Absolute Auto 400 /uL (0-450); Eosinophils Percent Auto 5.8 % (2-4); Hematocrit 38.7 % (41-53); Hemoglobin 12.9 g/dL (13.5-17.5); Lymphocytes Absolute Auto 1200 /uL (1100-4500); Lymphocytes Percent Auto 18.3 % (25-40); Mean Corpuscular HGB Conc 33.2 % (30-36); Mean Corpuscular Hemoglobin 28.1 PG (26-34); Mean Corpuscular Volume 84.7 fL (80-100); Monocytes Absolute Auto 700 /uL (0-900); Monocytes Percent Auto 9.8 % (3-14); Neutrophils Absolute Auto 4400 /uL (1500-7000); Neutrophils Percent Auto 65.2 % (50-75); Platelet Count 195 X10^3/uL (150-400); Red Blood Cell Count 4.57 X10^6/uL (4.5-5.9); Red Cell Distribution Width 17.6 % (11.6-14.8); White Blood Cell Count 6.7 X10^3/uL (4.5-11.0)
== END ==
PROVIDERS: PCP Family Medicine; Visit Provider Internal Medicine
DX: M86.9 Osteomyelitis, unspecified (principal); T82.7XXD Infection and inflammatory reaction due to other cardiac and vascular devices, implants and grafts, subsequent encounter
CPT/HCPCS: 80053; 80202; 85025; 85651; 86140

== ENCOUNTER → 2019-05-14 10:14 | Outpatient (ROUT) | payer OTHER, SELFPAY ==
[2019-05-14 10:23] LABS: Add Manual Diff / Slide Review NO; Basophils Absolute Auto 100 /uL (0-100); Basophils Percent Auto 0.8 % (0-2); Eosinophils Absolute Auto 200 /uL (0-450); Hematocrit 41.4 % (41-53); Hemoglobin 13.7 g/dL (13.5-17.5); Lymphocytes Absolute Auto 1100 /uL (1100-4500); Lymphocytes Percent Auto 17.4 % (25-40); Mean Corpuscular HGB Conc 33.1 % (30-36); Mean Corpuscular Hemoglobin 28.2 PG (26-34); Mean Corpuscular Volume 85.1 fL (80-100); Monocytes Absolute Auto 500 /uL (0-900); Monocytes Percent Auto 8.1 % (3-14); Neutrophils Absolute Auto 4600 /uL (1500-7000); Neutrophils Percent Auto 70.7 % (50-75); Platelet Count 193 X10^3/uL (150-400); Red Blood Cell Count 4.86 X10^6/uL (4.5-5.9); Red Cell Distribution Width 16.8 % (11.6-14.8); White Blood Cell Count 6.5 X10^3/uL (4.5-11.0)
[2019-05-14 11:06] LABS: Erythrocyte Sedimentation Rate 17 MM/HR (0-15)
[2019-05-14 11:16] LABS: Alanine Aminotransferase 17 IU/L (21-72); Albumin Globulin Ratio 1.1 (1.0-2.8); Alkaline Phosphatase 95 U/L (38-126); Aspartate Aminotransferase 22 IU/L (17-59); BUN Creatinine Ratio 34.3 (6-22); Bilirubin Total 0.7 mg/dL (0.2-1.3); Blood Urea Nitrogen 24 mg/dL (9-20); C-Reactive Protein Quant 0.6 mg/dL (<1.0); Calcium 9.6 mg/dL (8.4-10.2); Carbon Dioxide 25 mmol/L (22-32); Chloride 102 mmol/L (98-107); Estimated Glomerular Filt Rate > 60.0 mL/min (>60); Globulin 3.5 g/dL (1.7-4.1); Glucose 136 mg/dL (80-110); HEMOLYSIS < 15 (0-50); Potassium 4.1 mmol/L (3.4-5.1); Sodium 138 mmol/L (137-145); Total Protein 7.5 g/dL (6.3-8.2)
[2019-05-14 11:17] LABS: Vancomycin Trough 18.2 ug/mL (10-20)
== END ==
PROVIDERS: PCP Family Medicine; Visit Provider Internal Medicine
DX: M86.9 Osteomyelitis, unspecified (principal); T82.7XXD Infection and inflammatory reaction due to other cardiac and vascular devices, implants and grafts, subsequent encounter
CPT/HCPCS: 80053; 80202; 85025; 85651; 86140

== ENCOUNTER → 2019-05-28 10:27 | Outpatient (ROUT) | payer OTHER, SELFPAY ==
[2019-05-28 10:34] LABS: Add Manual Diff / Slide Review NO; Basophils Absolute Auto 0 /uL (0-100); Basophils Percent Auto 0.6 % (0-2); Eosinophils Absolute Auto 200 /uL (0-450); Eosinophils Percent Auto 3.1 % (2-4); Hematocrit 38.5 % (41-53); Hemoglobin 12.8 g/dL (13.5-17.5); Lymphocytes Absolute Auto 1000 /uL (1100-4500); Lymphocytes Percent Auto 15.3 % (25-40); Mean Corpuscular HGB Conc 33.1 % (30-36); Mean Corpuscular Hemoglobin 28.5 PG (26-34); Mean Corpuscular Volume 86.1 fL (80-100); Monocytes Absolute Auto 600 /uL (0-900); Monocytes Percent Auto 9.2 % (3-14); Neutrophils Absolute Auto 4900 /uL (1500-7000); Neutrophils Percent Auto 71.8 % (50-75); Platelet Count 169 X10^3/uL (150-400); Red Blood Cell Count 4.47 X10^6/uL (4.5-5.9); Red Cell Distribution Width 17.3 % (11.6-14.8); White Blood Cell Count 6.8 X10^3/uL (4.5-11.0)
[2019-05-28 10:57] LABS: Alanine Aminotransferase 23 IU/L (21-72); Albumin 3.7 g/dL (3.5-5.0); Albumin Globulin Ratio 1.2 (1.0-2.8); Alkaline Phosphatase 88 U/L (38-126); Aspartate Aminotransferase 24 IU/L (17-59); BUN Creatinine Ratio 38.8 (6-22); Bilirubin Total 0.5 mg/dL (0.2-1.3); Blood Urea Nitrogen 31 mg/dL (9-20); C-Reactive Protein Quant 0.9 mg/dL (<1.0); Calcium 9.3 mg/dL (8.4-10.2); Carbon Dioxide 24 mmol/L (22-32); Chloride 102 mmol/L (98-107); Estimated Glomerular Filt Rate > 60.0 mL/min (>60); Globulin 3.1 g/dL (1.7-4.1); Glucose 139 mg/dL (80-110); HEMOLYSIS < 15 (0-50); Sodium 138 mmol/L (137-145); Total Protein 6.8 g/dL (6.3-8.2)
[2019-05-28 10:58] LABS: Vancomycin Trough 16.6 ug/mL (10-20)
[2019-05-28 11:03] LABS: Erythrocyte Sedimentation Rate 23 MM/HR (0-15)
== END ==
PROVIDERS: PCP Family Medicine; Visit Provider Internal Medicine
DX: M86.9 Osteomyelitis, unspecified (principal); T82.7XXD Infection and inflammatory reaction due to other cardiac and vascular devices, implants and grafts, subsequent encounter
CPT/HCPCS: 80053; 80202; 85025; 85651; 86140

== ENCOUNTER → 2019-06-04 09:50 | Outpatient (ROUT) | payer OTHER, SELFPAY ==
[2019-06-04 10:04] LABS: Add Manual Diff / Slide Review NO; Basophils Absolute Auto 100 /uL (0-100); Basophils Percent Auto 0.8 % (0-2); Eosinophils Absolute Auto 200 /uL (0-450); Eosinophils Percent Auto 2.7 % (2-4); Hematocrit 38.8 % (41-53); Lymphocytes Absolute Auto 1100 /uL (1100-4500); Lymphocytes Percent Auto 16.6 % (25-40); Mean Corpuscular HGB Conc 33.6 % (30-36); Mean Corpuscular Hemoglobin 28.6 PG (26-34); Monocytes Absolute Auto 600 /uL (0-900); Monocytes Percent Auto 9.2 % (3-14); Neutrophils Absolute Auto 4800 /uL (1500-7000); Neutrophils Percent Auto 70.7 % (50-75); Platelet Count 194 X10^3/uL (150-400); Red Blood Cell Count 4.56 X10^6/uL (4.5-5.9); Red Cell Distribution Width 17.5 % (11.6-14.8); White Blood Cell Count 6.8 X10^3/uL (4.5-11.0)
[2019-06-04 10:12] LABS: Chloride 103 mmol/L (98-107); HEMOLYSIS < 15 (0-50)
[2019-06-04 10:17] LABS: Alanine Aminotransferase 22 IU/L (21-72); Albumin 3.9 g/dL (3.5-5.0); Albumin Globulin Ratio 1.2 (1.0-2.8); Alkaline Phosphatase 91 U/L (38-126); Aspartate Aminotransferase 23 IU/L (17-59); BUN Creatinine Ratio 36.3 (6-22); Bilirubin Total 0.6 mg/dL (0.2-1.3); Blood Urea Nitrogen 29 mg/dL (9-20); C-Reactive Protein Quant 0.5 mg/dL (<1.0); Calcium 9.4 mg/dL (8.4-10.2); Carbon Dioxide 25 mmol/L (22-32); Estimated Glomerular Filt Rate > 60.0 mL/min (>60); Globulin 3.3 g/dL (1.7-4.1); Glucose 157 mg/dL (80-110); Potassium 3.7 mmol/L (3.4-5.1); Sodium 139 mmol/L (137-145); Total Protein 7.2 g/dL (6.3-8.2)
[2019-06-04 10:18] LABS: Erythrocyte Sedimentation Rate 24 MM/HR (0-15)
[2019-06-04 10:27] LABS: Vancomycin Trough 13.5 ug/mL (10-20)
== END ==
PROVIDERS: PCP Family Medicine; Visit Provider Internal Medicine
DX: M86.9 Osteomyelitis, unspecified (principal); T82.7XXD Infection and inflammatory reaction due to other cardiac and vascular devices, implants and grafts, subsequent encounter
CPT/HCPCS: 80053; 80202; 85025; 85651; 86140

== ENCOUNTER → 2019-06-11 10:10 | Outpatient (ROUT) | payer OTHER, SELFPAY ==
[2019-06-11 10:18] LABS: Add Manual Diff / Slide Review NO; Basophils Absolute Auto 100 /uL (0-100); Basophils Percent Auto 0.8 % (0-2); Eosinophils Absolute Auto 200 /uL (0-450); Eosinophils Percent Auto 3.2 % (2-4); Hematocrit 39.1 % (41-53); Lymphocytes Absolute Auto 1200 /uL (1100-4500); Lymphocytes Percent Auto 19.3 % (25-40); Mean Corpuscular HGB Conc 33.3 % (30-36); Mean Corpuscular Hemoglobin 28.7 PG (26-34); Mean Corpuscular Volume 86.2 fL (80-100); Monocytes Absolute Auto 600 /uL (0-900); Monocytes Percent Auto 9.1 % (3-14); Neutrophils Absolute Auto 4400 /uL (1500-7000); Neutrophils Percent Auto 67.6 % (50-75); Platelet Count 173 X10^3/uL (150-400); Red Blood Cell Count 4.54 X10^6/uL (4.5-5.9); Red Cell Distribution Width 17.5 % (11.6-14.8); White Blood Cell Count 6.5 X10^3/uL (4.5-11.0)
[2019-06-11 10:43] LABS: Alanine Aminotransferase 25 IU/L (21-72); Albumin 3.8 g/dL (3.5-5.0); Albumin Globulin Ratio 1.2 (1.0-2.8); Alkaline Phosphatase 95 U/L (38-126); Aspartate Aminotransferase 20 IU/L (17-59); BUN Creatinine Ratio 37.8 (6-22); Bilirubin Total 0.5 mg/dL (0.2-1.3); Blood Urea Nitrogen 34 mg/dL (9-20); C-Reactive Protein Quant 1.8 mg/dL (<1.0); Calcium 9.6 mg/dL (8.4-10.2); Carbon Dioxide 24 mmol/L (22-32); Chloride 106 mmol/L (98-107); Estimated Glomerular Filt Rate > 60.0 mL/min (>60); Globulin 3.2 g/dL (1.7-4.1); Glucose 152 mg/dL (80-110); HEMOLYSIS < 15 (0-50); Potassium 4.1 mmol/L (3.4-5.1); Sodium 140 mmol/L (137-145)
[2019-06-11 10:45] LABS: Vancomycin Trough 16.2 ug/mL (10-20)
[2019-06-11 10:50] LABS: Erythrocyte Sedimentation Rate 32 MM/HR (0-15)
[2019-06-12 12:40] LABS: Hemoglobin A1C% w Est Avg Glu 6.8 % (4.0-6.0)
== END ==
PROVIDERS: PCP Family Medicine; Visit Provider Internal Medicine
DX: M86.9 Osteomyelitis, unspecified (principal); T82.7XXD Infection and inflammatory reaction due to other cardiac and vascular devices, implants and grafts, subsequent encounter; E11.9 Type 2 diabetes mellitus without complications; R20.2 Paresthesia of skin; Z51.81 Encounter for therapeutic drug level monitoring
CPT/HCPCS: 80053; 80202; 83036; 85025; 85651; 86140

== ENCOUNTER → 2019-07-18 10:32 | Outpatient (CLI) | payer OTHER, SELFPAY ==
[2019-07-18 12:02] LABS: Add Manual Diff / Slide Review NO; Basophils Absolute Auto 100 /uL (0-100); Basophils Percent Auto 0.9 % (0-2); Eosinophils Absolute Auto 300 /uL (0-450); Eosinophils Percent Auto 4.5 % (2-4); Hematocrit 40.1 % (41-53); Hemoglobin 13.5 g/dL (13.5-17.5); Lymphocytes Absolute Auto 1200 /uL (1100-4500); Lymphocytes Percent Auto 19.3 % (25-40); Mean Corpuscular HGB Conc 33.7 % (30-36); Mean Corpuscular Hemoglobin 29.3 PG (26-34); Mean Corpuscular Volume 86.8 fL (80-100); Monocytes Absolute Auto 600 /uL (0-900); Monocytes Percent Auto 9.2 % (3-14); Neutrophils Absolute Auto 4100 /uL (1500-7000); Neutrophils Percent Auto 66.1 % (50-75); Platelet Count 192 X10^3/uL (150-400); Red Blood Cell Count 4.62 X10^6/uL (4.5-5.9); Red Cell Distribution Width 16.3 % (11.6-14.8); White Blood Cell Count 6.2 X10^3/uL (4.5-11.0)
[2019-07-18 12:16] LABS: Cholesterol 236 mg/dL (140-199); HDL Cholesterol 40 mg/dL (40-60); LDL Cholesterol Calculated 120 mg/dL (<100); Triglycerides 381 mg/dL (35-150)
[2019-07-18 12:18] LABS: Alanine Aminotransferase 29 IU/L (21-72); Albumin 4.2 g/dL (3.5-5.0); Albumin Globulin Ratio 1.3 (1.0-2.8); Alkaline Phosphatase 102 U/L (38-126); Aspartate Aminotransferase 23 IU/L (17-59); BUN Creatinine Ratio 45.6 (6-22); Bilirubin Total 0.6 mg/dL (0.2-1.3); Blood Urea Nitrogen 41 mg/dL (9-20); Calcium 9.7 mg/dL (8.4-10.2); Carbon Dioxide 27 mmol/L (22-32); Chloride 101 mmol/L (98-107); Estimated Glomerular Filt Rate > 60.0 mL/min (>60); Globulin 3.3 g/dL (1.7-4.1); Glucose 117 mg/dL (80-110); HEMOLYSIS < 15 (0-50); Potassium 4.4 mmol/L (3.4-5.1); Sodium 138 mmol/L (137-145); Total Protein 7.5 g/dL (6.3-8.2)
[2019-07-18 12:29] LABS: Erythrocyte Sedimentation Rate 24 MM/HR (0-15)
== END ==
PROVIDERS: PCP Family Medicine; Visit Provider Family Medicine
DX: E11.9 Type 2 diabetes mellitus without complications (principal); R20.2 Paresthesia of skin; Z51.81 Encounter for therapeutic drug level monitoring; E78.5 Hyperlipidemia, unspecified
CPT/HCPCS: 36415; 80053; 80061; 85025; 85651

== ENCOUNTER → 2019-07-31 13:35 | Outpatient (CLI) | payer OTHER, SELFPAY ==
--- NOTE | 2019-07-31 13:37 | DI.US.S_ITS ---
LIMITED ULTRASOUND OF LEFT BREAST: 07/31/2019 CLINICAL: Patient returns today to evaluate skin thickening and gynecomastia behind the left nipple. Comparison is made to exam dated: 07/31/2019 [facility]. Color flow ultrasound of the left breast 12 o'clock, and retroareolar regions was performed. Rivas scale images of the real-time examination were reviewed. Targeted ultrasound of the left nipple and retroareolar region as well as along the 12:00 retroareolar position at site of patient's reported pain was performed and demonstrates mild left retroareolar gynecomastia that demonstrates no suspicious internal vascularity or discrete mass-like components. The periareolar skin measures at at the upper limits of normal/borderline thickened, without suspicious vascularity or intradermal masses. IMPRESSION: BENIGN 1) Mild left retroareolar gynecomastia, corresponding to the site of patient's reported focal pain and correlating with findings on diagnostic mammography. The periareolar skin measures at at the upper limits of normal/borderline thickened, without suspicious vascularity or intradermal masses. Recommend clinical follow-up with the patient's referring provider for further evaluation and management. A breast MRI can be considered if there is continued clinical concern. 2) No sonographic evidence of malignancy in the imaged areas of the left breast. The patient is advised to monitor his breasts and to return for re-evaluation should anything grow or change. This exam was interpreted at Station ID: [id number]. Electronically Signed By: Catalino Mcqueen M.D. ecl/:07/31/2019 15:09:12 copy to: Sue Costa letter sent: Clinical Evaluation Ultrasound BI-RADS: 2 Benign
--- NOTE | 2019-07-31 13:37 | DI.MG.S_ITS ---
MALE BILATERAL DIGITAL DIAGNOSTIC MAMMOGRAM 3D/2D: 07/31/2019 CLINICAL: Baseline exam. Left breast pain. No prior exams were available for comparison. There is a square marker overlying the skin of the superior periareolar region of the left breast immediately superior to the nipple at the site of the patient's reported focal pain. There is mild underlying retroareolar fibroglandular tissue consistent with gynecomastia. There is also mild right retroareolar gynecomastia. There is minimal skin thickening of the left nipple/periareolar region relative to the right. No other significant masses, calcifications, or other findings are seen in either breast. IMPRESSION: INCOMPLETE: NEEDS ADDITIONAL IMAGING EVALUATION Mild left gynecomastia, correlating with the site of patient's reported focal pain. There is also mild right gynecomastia (with the right gynecomastia being less severe than the left). There is minimal skin thickening of the left nipple/periareolar region relative to the right. Targeted left diagnostic ultrasound recommended for further evaluation, which will be performed immediately following this exam. This exam was interpreted at Station ID: [id number]. NOTE: For mammograms, a report in lay terms will be sent to the patient. Approximately 15% of breast malignancies will not be visualized mammographically. In the management of a palpable breast mass, a negative mammogram must not discourage biopsy of a clinically suspicious lesion. Electronically Signed By: Catalino Mcqueen M.D. ecl/:07/31/2019 15:10:08 copy to: Sue Costa ACR BI-RADS Category 0: Incomplete [id number]
== END ==
PROVIDERS: Family Provider Family Medicine; PCP Family Medicine; Visit Provider Hospitalist
DX: N64.4 Mastodynia (principal); N62 Hypertrophy of breast
CPT/HCPCS: 76642; 77066; G0279

== ENCOUNTER → 2019-11-08 17:10 | Outpatient (CLI) | payer MEDICARE, SELFPAY ==
[2019-11-08 19:02] LABS: Alanine Aminotransferase 20 IU/L (<50); Albumin 4.4 g/dL (3.5-5.0); Albumin Globulin Ratio 1.3 (1.0-2.8); Alkaline Phosphatase 94 U/L (38-126); Aspartate Aminotransferase 24 IU/L (17-59); BUN Creatinine Ratio 31.1 (6-22); Bilirubin Total 0.8 mg/dL (0.2-1.3); Blood Urea Nitrogen 28 mg/dL (9-20); Calcium 10.2 mg/dL (8.4-10.2); Carbon Dioxide 26 mmol/L (22-32); Chloride 105 mmol/L (98-107); Estimated Glomerular Filt Rate > 60.0 mL/min (>60); Globulin 3.5 g/dL (1.7-4.1); Glucose 136 mg/dL (80-110); HEMOLYSIS < 15 (0-50); Potassium 4.2 mmol/L (3.4-5.1); Sodium 142 mmol/L (137-145); Total Protein 7.9 g/dL (6.3-8.2)
[2019-11-08 19:07] LABS: Hemoglobin A1C% w Est Avg Glu 7.8 % (4.0-6.0)
[2019-11-08 19:18] LABS: Vitamin D 25 Hydroxy (D3) 28.4 ng/mL (30.0-100.0)
== END ==
PROVIDERS: Family Provider Family Medicine; PCP Student in an Organized Health Care Education/Training Program; Referring Provider Student in an Organized Health Care Education/Training Program; Visit Provider Student in an Organized Health Care Education/Training Program
DX: E78.5 Hyperlipidemia, unspecified (principal); E11.9 Type 2 diabetes mellitus without complications; E55.9 Vitamin D deficiency, unspecified; M86.9 Osteomyelitis, unspecified
CPT/HCPCS: 36415; 80053; 82306; 83036

== ENCOUNTER → 2019-11-20 11:57 | Outpatient (CLI) | payer MEDICARE, OTHER, SELFPAY ==
--- NOTE | 2019-11-20 12:25 | DI.CT.S_ITS ---
PROCEDURE: CT PELVIS WO/W CON INDICATIONS: Right groin wound with tunneling and right lower extremity swelling TECHNIQUE: Both before and after gravity instillation of 10% Isovue contrast solution into the bladder through a Erazo catheter, 5 mm axial images acquired from the bladder dome to the symphysis. 5 mm thick coronal and sagittal reformats were acquired. For radiation dose reduction, the following was used: automated exposure control, adjustment of mA and/or kV according to patient size. COMPARISON: [facility], CT, CT ANGIO CHEST ABDOMEN PELVIS, 03/09/2018, 6:38. FINDINGS: Image quality: Excellent. Genitourinary: Bladder wall thickness is normal. No contrast extravasation. Distal portions of both ureters are normal in caliber. Peritoneum and bowel: Unenhanced bowel loops are normal in caliber and wall thickness. No pathologic free pelvic fluid. Nodes and vessels: No iliac, pelvic, or inguinal adenopathy by size criteria. Iliac vessels are normal in size. Opacified portion of the abdominal aortic aneurysm measures 1 cm, (01/17). Infrarenal abdominal aortic aneurysm measuring 3.4 cm. The right common iliac artery, external iliac, common femoral artery are occluded, new compared to February 2018. Diminutive collateral arterial vessels in the right lower extremity. 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 The left femoral artery is occluded as before. Right external iliac and femoral artery stent or PTFE graft. Diminutive collateral to real vessels at the left lower extremity. Hypodense foci in the right common iliac vein, right common femoral vein, and right proximal superficial femoral vein are concerning for thrombosis. Bones: Right iuqgb-brf-gach amputation. There is a focal fluid collection at the posterior aspect of the right distal femur measuring 4.8 x 3.3 cm, (). There appears to be debris within the collection and a mild enhancement of the wall of the collection. No periosteal reaction is identified. Left BKA. Bilateral hip DJD. Miscellaneous: No inguinal hernias. Fat-containing periumbilical hernia. Areas of soft tissue thickening in the ventral abdominal wall. Urinary bladder is decompressed. Prostate is enlarged with calcifications. Skin markers overlying the right lower pelvic wall, (). No fluid collection. IMPRESSION: 1. Occluded right common iliac, or external iliac, femoral artery which is new compared to February of 2018. Uncertain chronicity. 2. Hypodense foci in the right common iliac vein and common femoral vein. These are suspicious for DVT. Uncertain chronicity. Ultrasound could confirm these findings. 3. Left common femoral pseudoaneurysm is mildly increased in size compared to 2018. Left femoral artery is occluded as before. 4. Diminutive blood flow in the abdominal aorta. Small AAA. 5. Small fluid collection about the right mphmw-wuu-cujn amputation. Differential diagnosis includes chronic fluid collection such as seroma or abscess. Targeted ultrasound may be helpful for further evaluation. 6. No fluid collection identified at the site of concern in the right lower pelvic wall. Comment: Findings were discussed with Dr. Nova at the time of dictation. Dictated by: Felton Calles M.D. on 11/20/2019 at 18:39 Approved by: Feltno Calles M.D. on 11/20/2019 at 19:03
== END ==
PROVIDERS: Family Provider Family Medicine; PCP Student in an Organized Health Care Education/Training Program; Referring Provider Student in an Organized Health Care Education/Training Program; Visit Provider Student in an Organized Health Care Education/Training Program
DX: T14.8XXA Other injury of unspecified body region, initial encounter (principal); R60.0 Localized edema; I71.4 Abdominal aortic aneurysm, without rupture; I72.4 Aneurysm of artery of lower extremity; I74.5 Embolism and thrombosis of iliac artery; Z89.611 Acquired absence of right leg above knee
CPT/HCPCS: 72194; Q9967

== ENCOUNTER → 2019-11-22 11:38 | Outpatient (CLI) | payer MEDICARE, OTHER, SELFPAY ==
--- NOTE | 2019-11-22 11:42 | DI.US.S_ITS ---
PROCEDURE: US PERIPH VENOUS LOW EXTREM RT INDICATIONS: ABNORMAL CT TECHNIQUE: Real-time imaging, as well as color and pulse Doppler interrogation, were performed of the lower extremity deep veins from the inguinal ligament to the popliteal fossa. COMPARISON: [facility], CT, CT PELVIS WO/W CON, 11/20/2019, 12:08. FINDINGS: There is clot within the right external iliac vein which is not well seen sonographically due to postsurgical changes and stents. This finding technically age-indeterminate Distally the common femoral, femoral and popliteal veins are normally compressible, and free of intraluminal thrombus. Color and pulse Doppler demonstrate normal phasic intraluminal flow. There is normal augmentation response to distal compression maneuver. There is a complex fluid collection measuring 6.8 x 2.0 x 0.3 cm at the distal thigh of unknown etiology IMPRESSION: Deep venous thrombosis present within the right external iliac vein, as previously described on the recent comparison CT from 11/20/19. Nonspecific distal thigh complex fluid collection at the distal stump, potentially hematoma, bland or infected Dictated by: Pee Owen M.D. on 11/22/2019 at 15:11 Approved by: Pee Owen M.D. on 11/22/2019 at 15:26
== END ==
PROVIDERS: Family Provider Family Medicine; PCP Student in an Organized Health Care Education/Training Program; Referring Provider Student in an Organized Health Care Education/Training Program; Visit Provider Student in an Organized Health Care Education/Training Program
DX: I82.421 Acute embolism and thrombosis of right iliac vein (principal); R22.41 Localized swelling, mass and lump, right lower limb; I99.9 Unspecified disorder of circulatory system
CPT/HCPCS: 93971

== ENCOUNTER → 2020-03-04 10:10 | Outpatient (CLI) | payer OTHER, SELFPAY ==
[2020-03-04 11:45] LABS: Hemoglobin A1C% w Est Avg Glu 7.4 % (4.0-6.0)
== END ==
PROVIDERS: Family Provider Family Medicine; PCP Student in an Organized Health Care Education/Training Program; Referring Provider Student in an Organized Health Care Education/Training Program; Visit Provider Student in an Organized Health Care Education/Training Program
DX: E11.9 Type 2 diabetes mellitus without complications (principal); Z79.4 Long term (current) use of insulin
CPT/HCPCS: 36415; 83036

== ENCOUNTER → 2020-06-19 12:18 | Outpatient (CLI) | payer OTHER, SELFPAY ==
[2020-06-19 13:09] LABS: Hemoglobin A1C% w Est Avg Glu 7.8 % (4.0-6.0)
== END ==
PROVIDERS: Family Provider Family Medicine; PCP Student in an Organized Health Care Education/Training Program; Referring Provider Student in an Organized Health Care Education/Training Program; Visit Provider Student in an Organized Health Care Education/Training Program
DX: E11.9 Type 2 diabetes mellitus without complications (principal); Z79.4 Long term (current) use of insulin
CPT/HCPCS: 36415; 83036

== ENCOUNTER → 2020-07-23 08:58 | Outpatient (CLI) | payer OTHER, MEDICARE, SELFPAY ==
[2020-07-23 09:50] LABS: BUN Creatinine Ratio 33.3 (6-22); Blood Urea Nitrogen 26 mg/dL (9-20); Calcium 8.9 mg/dL (8.4-10.2); Carbon Dioxide 27 mmol/L (22-32); Chloride 103 mmol/L (98-107); Estimated Glomerular Filt Rate > 60.0 mL/min (>60); Glucose 214 mg/dL (80-110); HEMOLYSIS 24 (0-50); Sodium 135 mmol/L (137-145)
--- NOTE | 2020-07-23 10:05 | DI.CT.S_ITS ---
PROCEDURE: CT UE RT W CON INDICATIONS: shoulder mass TECHNIQUE: After the administration of intravenous contrast, 3 mm axial sections acquired of the right shoulder, with coronal and sagittal reformats. COMPARISON: None. FINDINGS: Image quality: Excellent. Bones: Moderately severe AC joint osteoarthritis. Soft tissues: There is an ovoid water density structure which is somewhat difficult to accurately assess due to metal artifact from dental work crossing through this portion of the shoulder located at the anterior upper border of the AC joint. The structure has sharp demarcation, measures 4.0 cm transverse, 2.9 cm AP and 2.9 cm craniocaudad. This has a morphology suggestive of synovial protrusion from the AC joint. No definite contrast enhancement is seen within the mass. IMPRESSION: Ovoid sharply demarcated probable synovial protrusion projecting cephalad from the degenerated AC joint. This area could be further assessed with shoulder MRI if clinically indicated. The overall dimensions are 4.0 x 2.9 x 2.9 cm in maximal transverse, AP and craniocaudad dimensions. No acute trauma found. Dictated by: Domingo Dejesus M.D. on 07/23/2020 at 13:38 Approved by: Domingo Dejesus M.D. on 07/23/2020 at 13:42
== END ==
PROVIDERS: Family Provider Family Medicine; PCP Student in an Organized Health Care Education/Training Program; Referring Provider Student in an Organized Health Care Education/Training Program; Visit Provider Student in an Organized Health Care Education/Training Program
DX: Z01.812 Encounter for preprocedural laboratory examination (principal); R22.31 Localized swelling, mass and lump, right upper limb; M19.011 Primary osteoarthritis, right shoulder
CPT/HCPCS: 36415; 73201; 80048; 82565; 84520; Q9967

== ENCOUNTER → 2020-09-29 09:58 | Outpatient (CLI) | payer MEDICARE, OTHER, SELFPAY ==
[2020-09-29 11:25] LABS: Creatinine Urine Random 116.3 mg/dL
[2020-09-29 11:44] LABS: Microalbumin Urine Random 29.9 mg/dL (0-1.6)
[2020-09-29 11:52] LABS: BUN Creatinine Ratio 34.1 (6-22); Blood Urea Nitrogen 30 mg/dL (9-20); Calcium 9.3 mg/dL (8.4-10.2); Carbon Dioxide 25 mmol/L (22-32); Chloride 105 mmol/L (98-107); Cholesterol 133 mg/dL (140-199); Estimated Glomerular Filt Rate > 60.0 mL/min (>60); Glucose 171 mg/dL (80-110); HDL Cholesterol 34 mg/dL (40-60); HEMOLYSIS 48 (0-50); LDL Cholesterol Calculated 46 mg/dL (<100); Potassium 4.3 mmol/L (3.4-5.1); Sodium 136 mmol/L (137-145); Triglycerides 267 mg/dL (35-150)
[2020-09-29 11:53] LABS: Hemoglobin A1C% w Est Avg Glu 8.3 % (4.0-6.0)
[2020-09-29 12:22] LABS: Prostate Specific Antigen Scrn 1.63 ng/mL (0.1-4.0); Vitamin D 25 Hydroxy (D3) 49.1 ng/mL (30.0-100.0)
== END ==
PROVIDERS: Family Provider Family Medicine; PCP Student in an Organized Health Care Education/Training Program; Referring Provider Student in an Organized Health Care Education/Training Program; Visit Provider Student in an Organized Health Care Education/Training Program
DX: E11.69 Type 2 diabetes mellitus with other specified complication (principal); I10 Essential (primary) hypertension; E55.9 Vitamin D deficiency, unspecified; Z12.5 Encounter for screening for malignant neoplasm of prostate; E78.2 Mixed hyperlipidemia; Z79.4 Long term (current) use of insulin
CPT/HCPCS: 36415; 80048; 80061; 82043; 82306; 82570; 83036; G0103

== ENCOUNTER → 2020-12-24 09:07 | Outpatient (CLI) | payer MEDICARE, OTHER, SELFPAY ==
[2020-12-24] MEDS: COVID-19 VACC #1, MRNA(MOD) 100 MCG/0.5 ML VIAL IM (09:12)
== END ==
PROVIDERS: Family Provider Family Medicine; PCP Student in an Organized Health Care Education/Training Program; Visit Provider Internal Medicine
DX: Z23 Encounter for immunization (principal)
CPT/HCPCS: 0011A; 91301

== ENCOUNTER → 2021-01-21 08:34 | Outpatient (CLI) | payer MEDICARE, OTHER, SELFPAY ==
[2021-01-21] MEDS: COVID-19 VACC #2, MRNA(MOD) 100 MCG/0.5 ML VIAL IM (08:40)
== END ==
PROVIDERS: PCP Student in an Organized Health Care Education/Training Program; Visit Provider Internal Medicine
DX: Z23 Encounter for immunization (principal); E11.9 Type 2 diabetes mellitus without complications; Z79.4 Long term (current) use of insulin
CPT/HCPCS: 0012A; 36415; 82043; 82565; 82570; 83036; 84520; 91301

== ENCOUNTER → 2021-01-21 08:55 | Outpatient (CLI) | payer OTHER, SELFPAY ==
[2021-01-21 09:52] LABS: Hemoglobin A1C% w Est Avg Glu 6.9 % (4.0-6.0)
[2021-01-21 10:02] LABS: BUN Creatinine Ratio 30.4 (6-22); Blood Urea Nitrogen 35 mg/dL (9-20); Estimated Glomerular Filt Rate > 60.0 mL/min (>60)
[2021-01-21 10:21] LABS: Creatinine Urine Random 184.4 mg/dL
[2021-01-21 10:39] LABS: Microalbumi Creatinin Ratio Ur 143.7 ug/mg CR (<30); Microalbumin Urine Random 26.5 mg/dL (0-1.6)
== END ==
PROVIDERS: PCP Student in an Organized Health Care Education/Training Program; Referring Provider Student in an Organized Health Care Education/Training Program; Visit Provider Student in an Organized Health Care Education/Training Program
DX: E11.9 Type 2 diabetes mellitus without complications (principal); Z79.4 Long term (current) use of insulin
CPT/HCPCS: 36415; 82043; 82565; 82570; 83036; 84520

== ENCOUNTER → 2021-05-20 11:40 | Outpatient (CLI) | payer OTHER, SELFPAY ==
[2021-05-20 13:21] LABS: Hemoglobin A1C% w Est Avg Glu 6.3 % (4.0-6.0)
[2021-05-20 13:25] LABS: BUN Creatinine Ratio 36.9 (6-22); Blood Urea Nitrogen 38 mg/dL (9-20); Estimated Glomerular Filt Rate > 60.0 mL/min (>60)
== END ==
PROVIDERS: PCP Student in an Organized Health Care Education/Training Program; Referring Provider Student in an Organized Health Care Education/Training Program; Visit Provider Student in an Organized Health Care Education/Training Program
DX: E11.9 Type 2 diabetes mellitus without complications (principal); Z79.4 Long term (current) use of insulin; R80.9 Proteinuria, unspecified
CPT/HCPCS: 36415; 82565; 83036; 84520

== ENCOUNTER → 2022-04-01 11:27 | Outpatient (CLI) | payer OTHER, SELFPAY ==
[2022-04-01 12:57] LABS: Hemoglobin A1C% w Est Avg Glu 7.2 % (4.0-6.0)
[2022-04-01 13:02] LABS: BUN Creatinine Ratio 26.7 (6-22); Blood Urea Nitrogen 28 mg/dL (9-20); Calcium 9.4 mg/dL (8.4-10.2); Carbon Dioxide 28 mmol/L (22-32); Chloride 102 mmol/L (98-107); Cholesterol 144 mg/dL (140-199); Estimated Glomerular Filt Rate > 60 mL/min (>60); Glucose 102 mg/dL (80-110); HDL Cholesterol 39 mg/dL (40-60); HEMOLYSIS < 15 (0-50); LDL Cholesterol Calculated 52 mg/dL (<100); Potassium 4.3 mmol/L (3.4-5.1); Sodium 137 mmol/L (137-145); Triglycerides 266 mg/dL (35-150)
[2022-04-01 16:13] LABS: Creatinine Urine Random 90.3 mg/dL
[2022-04-01 16:16] LABS: Microalbumi Creatinin Ratio Ur 107.4 ug/mg CR (<30); Microalbumin Urine Random 9.7 mg/dL (0-1.6)
== END ==
PROVIDERS: PCP Student in an Organized Health Care Education/Training Program; Referring Provider Student in an Organized Health Care Education/Training Program; Visit Provider Student in an Organized Health Care Education/Training Program
DX: E11.69 Type 2 diabetes mellitus with other specified complication (principal); E78.2 Mixed hyperlipidemia; I10 Essential (primary) hypertension; R80.9 Proteinuria, unspecified; Z79.4 Long term (current) use of insulin
CPT/HCPCS: 36415; 80048; 80061; 82043; 82570; 83036

== ENCOUNTER → 2022-09-28 12:59 | Outpatient (CLI) | payer OTHER, SELFPAY ==
[2022-09-28 13:35] LABS: Hemoglobin A1C% w Est Avg Glu 7.3 % (4.0-6.0)
[2022-09-28 13:52] LABS: BUN Creatinine Ratio 25.3 (6-22); Blood Urea Nitrogen 21 mg/dL (9-20); Estimated Glomerular Filt Rate > 60 mL/min (>60)
[2022-09-28 16:14] LABS: Vitamin D 25 Hydroxy (D3) 39.9 ng/mL (30.0-100.0)
== END ==
PROVIDERS: PCP Student in an Organized Health Care Education/Training Program; Referring Provider Student in an Organized Health Care Education/Training Program; Visit Provider Student in an Organized Health Care Education/Training Program
DX: E55.9 Vitamin D deficiency, unspecified (principal); E11.69 Type 2 diabetes mellitus with other specified complication; E11.9 Type 2 diabetes mellitus without complications; E78.2 Mixed hyperlipidemia; I10 Essential (primary) hypertension; R80.9 Proteinuria, unspecified; Z79.4 Long term (current) use of insulin
CPT/HCPCS: 36415; 82306; 82565; 83036; 84520

== ENCOUNTER → 2022-10-22 12:15 | Outpatient (CLI) | payer OTHER, SELFPAY ==
[2022-10-22 14:17] LABS: Creatinine Urine Random 144.8 mg/dL
[2022-10-22 14:38] LABS: Microalbumi Creatinin Ratio Ur 180.2 ug/mg CR (<30); Microalbumin Urine Random 26.1 mg/dL (0-1.6)
== END ==
PROVIDERS: PCP Student in an Organized Health Care Education/Training Program; Referring Provider Student in an Organized Health Care Education/Training Program; Visit Provider Student in an Organized Health Care Education/Training Program
DX: E11.69 Type 2 diabetes mellitus with other specified complication (principal); E78.2 Mixed hyperlipidemia; I10 Essential (primary) hypertension; R80.9 Proteinuria, unspecified; Z79.4 Long term (current) use of insulin
CPT/HCPCS: 82043; 82570

== ENCOUNTER → 2022-10-26 10:29 | Outpatient (CLI) | payer OTHER, SELFPAY ==
--- NOTE | 2022-10-26 10:37 | DI.CT.S_ITS ---
PROCEDURE: CT CHEST W CON INDICATIONS: Re-assess lung mass seen on 2018 CTA TECHNIQUE: After the administration of intravenous contrast, 5 mm thick sections acquired from the pulmonary apices to the posterior costophrenic angles. 1 mm axial lung, 5 mm thick coronal and sagittal reformats and 7 mm axial MIP were acquired. For radiation dose reduction, the following was used: automated exposure control, adjustment of mA and/or kV according to patient size. COMPARISON: [facility], CT, CT ANGIO CHEST ABDOMEN PELVIS, 03/09/2018, 6:38. FINDINGS: Image quality: Excellent. Lungs and pleura: The appearance of the lateral right apical ill-defined masslike lesion is relatively stable. However, it has slightly decreased in size. On previous image 15/8, a spiculated component previously measured approximately 1.6 x 1.4 cm. It now measures approximately 1.3 x 0.9 cm. A more tubular component extending in the anterior posterior direction on image 16 of the previous study previously measured approximately 3.9 x 1.0 cm. On the current study it measures approximately 3.3 x 0.6 cm. Again noted is vgha-gj-booifeib emphysematous change, stable. No new or increasing pulmonary nodules are identified. There are numerous tiny plaque-like lesions on the pleura bilaterally which are better appreciated on the current study, which was performed utilizing 1 mm thick slices versus the previous study, which utilized 5 mm thick slices. None of these plaque-like lesions are conclusively calcified. There were present previously, but not as identifiable. No pleural effusions or pneumothorax. Central and peripheral airways are patent and normal in caliber. Mediastinum: Heart size is normal. No pericardial effusion. Severe coronary artery calcifications. No mediastinal or hilar adenopathy by size criteria. Thoracic aorta and central pulmonary arteries are normal in size. Esophagus is normal in caliber. No hiatal hernia. Bones and chest wall: No suspicious bony lesions. No vertebral body compression fractures. No axillary or supraclavicular adenopathy by size criteria. Thyroid gland is unremarkable . Abdomen: Visualized upper abdominal solid organs appear normal. Upper abdominal bowel loops are normal in caliber. IMPRESSION: 1. The masslike lesion in the lateral right apex on the previous study is now slightly smaller, and is consistent with a non malignant lesion, likely a scar. 2. There is jxfg-rq-vcuchgin emphysematous change and there is a question of previous asbestos exposure, as there are numerous plaques. 3. Severe coronary artery calcifications. Comment: Based on the pulmonary findings, in rolling in a program of yearly lung screen CT is suggested, with next study in 12 months. Dictated by: Broderick Sanders M.D. on 10/26/2022 at 14:48 Approved by: Broderick Sanders M.D. on 10/26/2022 at 15:04
== END ==
PROVIDERS: PCP Student in an Organized Health Care Education/Training Program; Referring Provider Student in an Organized Health Care Education/Training Program; Visit Provider Student in an Organized Health Care Education/Training Program
DX: R05.9 Cough, unspecified (principal); R91.8 Other nonspecific abnormal finding of lung field; Z77.098 Contact with and (suspected) exposure to other hazardous, chiefly nonmedicinal, chemicals; I25.10 Atherosclerotic heart disease of native coronary artery without angina pectoris
CPT/HCPCS: 71260; Q9967

== ENCOUNTER 2023-08-22 17:13 | Emergency (ER) | payer OTHER, SELFPAY ==
[2023-08-22] VITALS (7 sets, daily range): BP systolic 140–183; BP diastolic 70–84; PULSE 53–63; RESP 16–18; TEMP 36.2–36.6; O2SAT 95–98
--- NOTE | 2023-08-22 17:34 | DI.RAD.S_ITS ---
PROCEDURE: XR HIP W PEL IF DONE LT 2V INDICATIONS: Pain in hip and leg for 3 weeks. TECHNIQUE: 2 views of the hip were acquired. COMPARISON: None. FINDINGS: Bones: No fractures or dislocations. No suspicious bony lesions. The visualized pelvic ring appears intact. Nonuniform joint space narrowing of the left hip, with associated osteophytosis. Above the knee amputation on the left, without bony deformity. Soft tissues: No suspicious soft tissue calcifications or masses. IMPRESSION: Above knee amputation, without complication. Moderate left hip osteoarthritis. Dictated by: Eran Whelan M.D. on 08/22/2023 at 17:46 Approved by: Eran Whelan M.D. on 08/22/2023 at 17:47
[2023-08-22 19:38] LABS: Add Manual Diff / Slide Review NO; Basophils Absolute Auto 100 /uL (0-100); Basophils Percent Auto 0.9 % (0-2); Eosinophils Absolute Auto 300 /uL (0-450); Eosinophils Percent Auto 5.3 % (2-4); Hematocrit 35.7 % (41-53); Hemoglobin 11.9 g/dL (13.5-17.5); Lymphocytes Absolute Auto 1300 /uL (1100-4500); Lymphocytes Percent Auto 21.9 % (25-40); Mean Corpuscular HGB Conc 33.4 % (30-36); Mean Corpuscular Volume 89.8 fL (80-100); Monocytes Absolute Auto 600 /uL (0-900); Monocytes Percent Auto 9.7 % (3-14); Neutrophils Absolute Auto 3600 /uL (1500-7000); Neutrophils Percent Auto 62.2 % (50-75); Platelet Count 167 X10^3/uL (150-400); Red Blood Cell Count 3.98 X10^6/uL (4.5-5.9); Red Cell Distribution Width 16.6 % (11.6-14.8); White Blood Cell Count 5.8 X10^3/uL (4.5-11.0)
[2023-08-22 19:48] LABS: Prothrombin Time 11.3 SECONDS (9.4-12.5)
[2023-08-22 19:51] LABS: PTT Partial Thromboplastin Tim 32 SECONDS (25.1-36.5)
[2023-08-22 19:52] LABS: Alanine Aminotransferase 28 IU/L (<50); Albumin 3.6 g/dL (3.5-5.0); Alkaline Phosphatase 80 U/L (38-126); Aspartate Aminotransferase 28 IU/L (17-59); BUN Creatinine Ratio 38.8 (6-22); Bilirubin Total 0.7 mg/dL (0.2-1.3); Blood Urea Nitrogen 31 mg/dL (9-20); Calcium 9.2 mg/dL (8.4-10.2); Carbon Dioxide 24 mmol/L (22-32); Chloride 106 mmol/L (98-107); Estimated Glomerular Filt Rate > 60 mL/min (>60); Globulin 3.5 g/dL (1.7-4.1); Glucose 172 mg/dL (80-110); Lipase 178 U/L (23-300); Potassium 4.3 mmol/L (3.4-5.1); Sodium 135 mmol/L (137-145); Total Protein 7.1 g/dL (6.3-8.2)
[2023-08-22 19:53] LABS: Lactate (Lactic Acid) 1.3 mmol/L (0.7-2.1)
[2023-08-22 20:03] LABS: Erythrocyte Sedimentation Rate 25 MM/HR (0-15)
[2023-08-22 20:05] LABS: HEMOLYSIS 56 (0-50)
[2023-08-22 20:07] LABS: C-Reactive Protein Quant < 0.5 mg/dL (<1.0)
[2023-08-22 20:21] LABS: Procalcitonin 0.07 ng/mL (<0.5)
--- NOTE | 2023-08-23 00:17 | ED.BACK ---
HPI - Back Pain/Injury General Chief Complaint: Back Pain/Injury Stated Complaint: Hip and back pain.. Time Seen by Provider: 08/22/23 17:34 History of Present Illness HPI Narrative: Patient is a 72-year-old male history of insulin-dependent diabetes, arterial disease he has bilateral femoral arterial stents. He would a ruptured right femoral artery he has bilateral amputations presents today with left-sided groin pain back pain for the last 3 weeks. He reports that he got COVID during that time pain is pretty constant he can not find a comfortable position. It starts in his groin kind of radiates to his back. Site of amputation on the left leg has been erythematous for the last 6 months. He was amputated on that side 18 year years ago and it is never been red and till few months ago it is not any worse today he denies any fever or chills. Related Data Home Medications Medication Instructions Recorded Confirmed aspirin 81 mg tablet,delayed 81 mg PO DAILY 07/05/19 12/13/22 release diphenhydramine HCl 25 mg tablet 75 mg PO BID PRN 12/13/22 12/13/22 (Allergy (diphenhydramine)) Previous Rx's Medication Instructions Recorded accu-check meka test strips #100 ea 12/28/19 carvedilol 25 mg tablet 25 mg PO BID #180 tabs 04/08/20 rosuvastatin 20 mg tablet 20 mg PO BEDTIME #90 tabs 10/06/20 hydrocortisone 1 % topical cream 1 applic topical BID PRN itching 08/05/21 (Anti-Itch (hydrocortisone)) #45 grams BD syringe 0.3mL 8MM/31G U/F #500 ea 03/25/22 insulin aspart U-100 100 unit/mL 1 - 15 unit (0.01 - 0.15 mL) 07/22/22 subcutaneous solution (Novolog SUBCUT 5XD #70 mL U-100 Insulin aspart) insulin glargine 100 unit/mL (3 34 unit (0.34 mL) SUBCUT QPM #30 mL 09/28/22 mL) subcutaneous pen (Lantus Solostar U-100 Insulin) hydrochlorothiazide 25 mg tablet 25 mg PO QAM #90 tabs 12/13/22 losartan 50 mg tablet 50 mg PO BID #180 tabs 12/14/22 Allergies Allergy/AdvReac Type Severity Reaction Status Date / Time atenolol Allergy Unknown Verified 08/22/23 17:27 atorvastatin Allergy Unknown Hives Verified 08/22/23 17:27 clopidogrel Allergy Unknown Hives Verified 08/22/23 17:27 hydroxyzine AdvReac Mild Verified 08/22/23 17:27 Review of Systems Review of Systems ROS Unobtainable: All systems reviewed & are unremarkable except as noted in HPI and below Patient History Medical History Agent orange exposure Mastalgia Paresthesia of upper extremity Foot pain (~2004) Ankle pain (~2018) Chicken pox (~1956) Ruptured tympanic membrane (~1969) Hearing loss (~1957) Kidney stones (~2011) Deep vein thrombosis (~2004) Diabetic neuropathy CAD (coronary artery disease) of artery bypass graft (~2004) Severe peripheral arterial disease (~1999) Hyperlipidemia Hypertension Diabetes (~2004) Above knee amputation of left lower extremity (~2004) Surgical History S/P AKA (above knee amputation) bilateral Anesthesia History of angioplasty History of carotid endarterectomy H/O fasciotomy AAA (abdominal aortic aneurysm) (~2004) Social History Smoking Status: Former smoker Smoking Status: Former smoker alcohol intake frequency: holidays/special occasions only Substance Use Type: marijuana Exam Initial Vital Signs Initial Vital Signs: Vital Signs Temperature 97.2 F L 08/22/23 17:22 Pulse Rate 63 08/22/23 17:22 Respiratory Rate 16 08/22/23 17:22 Blood Pressure 180/78 H 08/22/23 17:22 Pulse Oximetry 98 08/22/23 17:22 Oxygen Delivery Method Room Air 08/22/23 17:22 GENERAL: Alert pleasant patient 72-year-old male appears well HEENT: Head atraumatic,EOMI, pupils reactive, face symmetric, moist mucous membranes CARDIOVASCULAR: Regular rate and rhythm without murmurs, rubs or gallops. RESPIRATORY: Breath sounds equal bilaterally, no wheezes rales or rhonchi. ABDOMEN: Soft, nontender. Normoactive bowel sounds all 4 quadrants. No guarding or rebound. EXTREMITIES: Normal range of motion, no clubbing or edema. Neurovascularly intact Bilateral amputation left amputation site is erythematous slightly cool to touch but patient reports that is normal. Rest of his thigh is warm. Difficult to palpate a femoral pulse. NEUROLOGICAL: Alert and oriented x4. SKIN: Warm, dry, no laceration, no petechiae, no rashes or lesions. Course Orders Ordered: ED Orders 08/23/23 00:30 CT angio abd aorta runoff Stat Vital Signs Vital signs: Vital Signs - 8 hr 08/22/23 23:00 08/22/23 23:01 08/22/23 23:01 Temperature Pulse Rate 57 L 56 L Respiratory Rate Blood Pressure 173/72 H Pulse Oximetry 95 95 Oxygen Delivery Method 08/22/23 23:02 08/22/23 23:30 08/22/23 23:30 Temperature 97.8 F Pulse Rate 53 L Respiratory Rate 18 Blood Pressure 183/84 H Pulse Oximetry 96 Oxygen Delivery Method Room Air 08/22/23 23:50 08/23/23 05:00 08/23/23 05:31 Temperature Pulse Rate 57 L Respiratory Rate Blood Pressure 180/83 H 177/74 H Pulse Oximetry 97 Oxygen Delivery Method 08/23/23 06:01 08/23/23 06:15 Temperature Pulse Rate 62 Respiratory Rate 16 Blood Pressure 143/63 H Pulse Oximetry 95 Oxygen Delivery Method Room Air MDM - Back Pain/Injury Lab Data 08/22/23 19:26 08/22/23 19:26 Labs: Lab Results 08/22/23 Range/Units 19:26 WBC 5.8 (4.5-11.0) X10^3/uL RBC 3.98 L (4.5-5.9) X10^6/uL Hgb 11.9 L (13.5-17.5) g/dL Hct 35.7 L (41-53) % MCV 89.8 (80-100) fL MCH 30.0 (26-34) PG MCHC 33.4 (30-36) % RDW 16.6 H (11.6-14.8) % Plt Count 167 (150-400) X10^3/uL Neut % (Auto) 62.2 (50-75) % Lymph % (Auto) 21.9 L (25-40) % Osborne % (Auto) 9.7 (3-14) % Eos % (Auto) 5.3 H (2-4) % Baso % (Auto) 0.9 (0-2) % Neut # (Auto) 3600 (9479-4352) /uL Lymph # (Auto) 1300 (6009-5163) /uL Osborne # (Auto) 600 (0-900) /uL Eos # (Auto) 300 (0-450) /uL Baso # (Auto) 100 (0-100) /uL ESR 25 H (0-15) MM/HR PT 11.3 (9.4-12.5) SECONDS INR 1.0 (0.9-1.3) APTT 32 (25.1-36.5) SECONDS Sodium 135 L (137-145) mmol/L Potassium 4.3 (3.4-5.1) mmol/L Chloride 106 (98-107) mmol/L Carbon Dioxide 24 (22-32) mmol/L BUN 31 H (9-20) mg/dL Creatinine 0.80 (0.66-1.25) mg/dL Estimated GFR > 60 (>60) mL/min BUN/Creatinine Ratio 38.8 H (6-22) Glucose 172 H (80-110) mg/dL Lactate 1.3 (0.7-2.1) mmol/L Calcium 9.2 (8.4-10.2) mg/dL Total Bilirubin 0.7 (0.2-1.3) mg/dL AST 28 (17-59) IU/L ALT 28 (<50) IU/L Alkaline Phosphatase 80 (38-126) U/L C-Reactive Protein < 0.5 (<1.0) mg/dL Total Protein 7.1 (6.3-8.2) g/dL Albumin 3.6 (3.5-5.0) g/dL Globulin 3.5 (1.7-4.1) g/dL Albumin/Globulin Ratio 1.0 (1.0-2.8) Lipase 178 (23-300) U/L Procalcitonin 0.07 (<0.5) ng/mL Imaging Data Extremity x-ray #1: Radiologist's Impression: PROCEDURE: XR HIP W PEL IF DONE LT 2V INDICATIONS: Pain in hip and leg for 3 weeks. TECHNIQUE: 2 views of the hip were acquired. COMPARISON: None. FINDINGS: Bones: No fractures or dislocations. No suspicious bony lesions. The visualized pelvic ring appears intact. Nonuniform joint space narrowing of the left hip, with associated osteophytosis. Above the knee amputation on the left, without bony deformity. Soft tissues: No suspicious soft tissue calcifications or masses. IMPRESSION: Above knee amputation, without complication. Moderate left hip osteoarthritis. Dictated by: Eran Whelan M.D. on 08/22/2023 at 17:46 ct aorta run off: Radiologist's Impression: PROCEDURE: CT ANGIO ABD AORTA RUNOFF INDICATIONS: left groin pain, decreased pulse, hx stent TECHNIQUE: After the administration of intravenous contrast, 2.5 mm sections acquired from T12 to the feet, with optional delayed image acquisition from the knees to the feet. 3-dimensional maximum intensity projection (MIP) coronal and sagittal reformats, and/or 3-dimensional volume rendering reformatting was then performed. For radiation dose reduction, the following was used: automated exposure control. COMPARISON: [facility], CT, CT ANGIO CHEST ABDOMEN PELVIS, 03/09/2018, 6:38. FINDINGS: Image quality: Excellent. Extravascular tissues: Postsurgical changes from bilateral above knee amputations. Nonspecific subcutaneous edema is seen in the size, greater on the left than on the right. There is chronic fatty infiltration and atrophy of the right anterior and posterior compartment musculature. Lung bases are clear. Heart size is mildly enlarged. Liver is normal in size and enhancement. Gallbladder contains a few small calcified gallstones without surrounding inflammatory changes. Biliary system is non dilated. Pancreas enhances normally. Spleen is normal in size and enhancement. No adrenal nodules. Kidneys are normal in size and enhancement, without hydronephrosis. Small hiatal hernia. Non opacified bowel loops demonstrate normal wall thickness and enhancement. No free fluid or air. No retroperitoneal or mesenteric adenopathy. Fat containing ventral hernia is present in the upper abdomen. Bladder wall thickness is normal. No inguinal hernias or adenopathy. No suspicious bony lesions. No vertebral body compression fractures. Changes are seen in the spine. Abdominal aorta: Postsurgical changes from infrarenal aortic stent graft. There is an aorto bi-iliac bypass graft with anastomosis at the level of the distal abdominal aorta and at the distal external iliac arteries. There is instent restenosis or mural thrombus within the abdominal aorta, with a narrow channel of contrast material extending through the abdominal aorta and supplying the left iliac artery graft. No flow is seen within the right iliac artery graft. No flow is seen within the nez perce common, internal, or external iliac arteries. Origins of the celiac trunk and superior mesenteric artery are patent. Inferior mesenteric artery is fed via collateral flow. Bilateral renal arteries demonstrate atherosclerotic calcifications without significant stenosis. Right lower extremity: Postsurgical changes from above knee amputation. Vascular stent is noted distal to the anastomosis at the external iliac artery extending to the common femoral artery. No flow is seen within the right common, superficial, or deep femoral arteries. Some collateral arterial vasculature is noted within the adductor and posterior musculature. Left lower extremity: At the arterial anastomosis in the region of the external iliac artery/common femoral artery junction, the artery measures up to 3 cm in diameter. A small amount of retrograde flow is seen into the distal nez perce left external iliac artery. No flow is seen within the common, superficial, or deep femoral arteries. Some collateral arterial flow is seen within the adductor and posterior compartment musculature. IMPRESSION: 1. Postsurgical changes from abdominal aortobiiliac bypass. There is narrowing of the flow lumen in the distal aortic graft and left iliac graft. The right iliac graft is occluded. 2. 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 No flow is seen within the distal left femoral arterial system. 3. Nonopacification of the right femoral arterial system. 4. Postsurgical changes from bilateral above knee amputations. Nonspecific subcutaneous edema is seen within the distal lower extremities, greater on the left than on the right. Additional nonvascular findings: Mild cardiomegaly. Cholelithiasis. Small hiatal hernia. Upper abdominal fat containing ventral hernia. Approved by: Kamlesh Aiken M.D. on 08/23/2023 at 2:02 MDM Narrative Medical decision making narrative: Patient is a very nice well-appearing under standing 72-year-old male who presents today with ongoing left hip and groin pain. He has a significant arterial disease history of ruptured aneurysm bilateral femoral arterial stents. Over the last 6 months he is had increasing redness left side. Today there is no evidence of infection or osteomyelitis. He actually has a very strong power portable left femoral pulse. X-ray shows some arthritis without evidence of osteomyelitis CT runoff reports that the right iliac graft is completely occluded there is a small stable aneurysm in the left iliofemoral junction with occlusion at that same level and no flow is seen distal. Patient's vitals are stable he is not in significant pain not requiring any pain medication. Patient initially had his right femoral aneurysm repair and other surgeries a [facility]. Attempted to call and contact [facility] ever they are at capacity they do not do consult. Patient has not been seen by [facility] biswas since 2018. 05:55 Dr. Brannon vascular surgery with [facility] [place] has been updated patient's symptoms test results reviewed imaging reports very common for bilateral amputee to bilateral femoral arterial occlusion. No need for any further follow-up or transfer. This time pain is likely musculoskeletal secondary to osteoarthritis. No sign of osteomyelitis. Arterial disease is unlikely causing the pain. Patient and updated on vascular surgery recommendations they understand. Discharge Plan Departure Patient Disposition: Home Clinical Impression: Osteoarthritis, Coronary artery disease involving coronary bypass graft Instructions: Osteoarthritis Activity Restrictions/Additional Instructions: *You have been diagnosed with osteoarthritis *What to do: At this time please follow-up with your primary physicians. Your arterial disease is not causing your pain likely arthritis. *Continue to take medications as directed *Follow up with your primary care provider in 2-3 days or call [phone] *Return to ER if you should have increased pain redness fever or any new, worsening or concerning symptoms Prescriptions: No Action (DME) accu-check meka test strips Qty: 100 3RF Rx Instructions: use to check blood sugar twice a day carvedilol 25 mg tablet 25 mg PO BID Qty: 180 3RF rosuvastatin 20 mg tablet 20 mg PO BEDTIME Qty: 90 2RF hydrocortisone [Anti-Itch (HC)] 1 % cream 1 applic topical BID PRN (Reason: itching) Qty: 45 0RF (DME) BD syringe 0.3mL 8MM/31G U/F Qty: 500 3RF Dose Instruction: As directed Rx Instructions: Use to inject insulin SQ 5 times daily Novolog U-100 Insulin aspart 100 unit/mL solution 1 - 15 unit SUBCUT 5XD MDD 75 units Qty: 70 5RF Hold Instructions: Needs labs Rx Instructions: Follow sliding scale losartan 50 mg tablet 50 mg PO BID Qty: 180 3RF Hold Instructions: Needs labs hydrochlorothiazide 25 mg tablet 25 mg PO QAM Qty: 90 3RF diphenhydramine HCl [Allergy (diphenhydramine)] 25 mg tablet 75 mg PO BID PRN aspirin 81 mg tablet,delayed release (DR/EC) 81 mg PO DAILY Lantus Solostar U-100 Insulin 100 unit/mL (3 mL) insulin pen 34 unit subcut QPM Qty: 30 1RF Hold Instructions: Needs labs Referrals: Florencio Solorio MD [Primary Care Provider] - Stand Alone Forms: Patient Portal/API
--- NOTE | 2023-08-23 00:30 | DI.CT.S_ITS ---
PROCEDURE: CT ANGIO ABD AORTA RUNOFF INDICATIONS: left groin pain, decreased pulse, hx stent TECHNIQUE: After the administration of intravenous contrast, 2.5 mm sections acquired from T12 to the feet, with optional delayed image acquisition from the knees to the feet. 3-dimensional maximum intensity projection (MIP) coronal and sagittal reformats, and/or 3-dimensional volume rendering reformatting was then performed. For radiation dose reduction, the following was used: automated exposure control. COMPARISON: [facility], CT, CT ANGIO CHEST ABDOMEN PELVIS, 03/09/2018, 6:38. FINDINGS: Image quality: Excellent. Extravascular tissues: Postsurgical changes from bilateral above knee amputations. Nonspecific subcutaneous edema is seen in the size, greater on the left than on the right. There is chronic fatty infiltration and atrophy of the right anterior and posterior compartment musculature. Lung bases are clear. Heart size is mildly enlarged. Liver is normal in size and enhancement. Gallbladder contains a few small calcified gallstones without surrounding inflammatory changes. Biliary system is non dilated. Pancreas enhances normally. Spleen is normal in size and enhancement. No adrenal nodules. Kidneys are normal in size and enhancement, without hydronephrosis. Small hiatal hernia. Non opacified bowel loops demonstrate normal wall thickness and enhancement. No free fluid or air. No retroperitoneal or mesenteric adenopathy. Fat containing ventral hernia is present in the upper abdomen. Bladder wall thickness is normal. No inguinal hernias or adenopathy. No suspicious bony lesions. No vertebral body compression fractures. Changes are seen in the spine. Abdominal aorta: Postsurgical changes from infrarenal aortic stent graft. There is an aorto bi-iliac bypass graft with anastomosis at the level of the distal abdominal aorta and at the distal external iliac arteries. There is instent restenosis or mural thrombus within the abdominal aorta, with a narrow channel of contrast material extending through the abdominal aorta and supplying the left iliac artery graft. No flow is seen within the right iliac artery graft. No flow is seen within the habematolel common, internal, or external iliac arteries. Origins of the celiac trunk and superior mesenteric artery are patent. Inferior mesenteric artery is fed via collateral flow. Bilateral renal arteries demonstrate atherosclerotic calcifications without significant stenosis. Right lower extremity: Postsurgical changes from above knee amputation. Vascular stent is noted distal to the anastomosis at the external iliac artery extending to the common femoral artery. No flow is seen within the right common, superficial, or deep femoral arteries. Some collateral arterial vasculature is noted within the adductor and posterior musculature. Left lower extremity: At the arterial anastomosis in the region of the external iliac artery/common femoral artery junction, the artery measures up to 3 cm in diameter. A small amount of retrograde flow is seen into the distal habematolel left external iliac artery. No flow is seen within the common, superficial, or deep femoral arteries. Some collateral arterial flow is seen within the adductor and posterior compartment musculature. IMPRESSION: 1. Postsurgical changes from abdominal aortobiiliac bypass. There is narrowing of the flow lumen in the distal aortic graft and left iliac graft. The right iliac graft is occluded. 2. 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 No flow is seen within the distal left femoral arterial system. 3. Nonopacification of the right femoral arterial system. 4. Postsurgical changes from bilateral above knee amputations. Nonspecific subcutaneous edema is seen within the distal lower extremities, greater on the left than on the right. Additional nonvascular findings: Mild cardiomegaly. Cholelithiasis. Small hiatal hernia. Upper abdominal fat containing ventral hernia. Approved by: Kamlesh Aiken M.D. on 08/23/2023 at 2:02
--- NOTE | 2023-08-23 00:51 | PC.NURSE ---
Left formal artery palpated and marked, strong pulse felt. R femoral artery not able to be palpated, distal cap refill to R AKA stump <4 seconds. MD updated.
[2023-08-23 05:00] VITALS: BP 180/83
[2023-08-23 05:31] VITALS: BP 177/74
[2023-08-23 06:01] VITALS: BP 143/63
[2023-08-23 06:15] VITALS: PULSE 62; RESP 16; O2SAT 95
== END 2023-08-23 06:14 | disposition home or self-care (01) ==
PROVIDERS: Emergency Medicine; Emergency Provider Emergency Medicine; PCP Student in an Organized Health Care Education/Training Program
DX: R10.32 Left lower quadrant pain (principal); M16.12 Unilateral primary osteoarthritis, left hip; I25.810 Atherosclerosis of coronary artery bypass graft(s) without angina pectoris; Z87.891 Personal history of nicotine dependence; Z89.612 Acquired absence of left leg above knee; Z89.611 Acquired absence of right leg above knee
CPT/HCPCS: 36415; 73502; 75635; 80053; 83605; 83690; 84145; 85025; 85610; 85651; 85730; 86140; 99284; 99285

== ENCOUNTER → 2023-08-25 13:09 | Outpatient (CLI) | payer OTHER, SELFPAY ==
--- NOTE | 2023-08-25 | DI.US.S_ITS ---
PROCEDURE: US RENAL COMPLETE INDICATIONS: ACUTE KIDNEY FAILURE TECHNIQUE: Real-time scanning was performed of the kidneys and bladder, with image documentation. COMPARISON: None. FINDINGS: Kidneys: Kidneys are normal in size. Right kidney measures 12.0 cm long; left kidney measures 12.8 cm long. Right renal cortical thickness is 2.0 cm; left renal cortical thickness is 1.6 cm. Renal cortical echotexture is normal. No hydronephrosis. There are bilateral nonobstructing calculi. The largest on the right measures 7 mm in diameter and the largest on the left measures 10 mm in diameter. No suspicious solid mass lesions. Bladder: Pre-void bladder volume is 283.4 mL. The patient was not able to void. Pre-void images demonstrate no intraluminal masses or stones. On pre-void images, the right ureteral jet is noted with color Doppler interrogation. (Of note, ureteral jets may not be detectable in up to 25% of cases due to insufficient differences in specific gravity between ureteral and bladder urine). Miscellaneous: No free pelvic fluid. IMPRESSION: 1. Nonobstructive bilateral nephrolithiasis. 2. Postvoid residual could not be obtained as the patient was unable to void. Findings raise the suspicion for bladder outlet obstruction. Dictated by: Michelle Richardson M.D. on 08/25/2023 at 14:49 Approved by: Michelle Richardson M.D. on 08/25/2023 at 14:51
== END ==
PROVIDERS: PCP Student in an Organized Health Care Education/Training Program; Referring Provider Internal Medicine; Visit Provider Internal Medicine
DX: N17.9 Acute kidney failure, unspecified (principal); N20.0 Calculus of kidney
CPT/HCPCS: 76770

== ENCOUNTER 2023-12-11 11:59 | Emergency (ER) | payer OTHER, SELFPAY ==
[2023-12-11 12:04] VITALS: BP 140/66; PULSE 74; RESP 16; TEMP 36.3; O2SAT 95
--- NOTE | 2023-12-11 12:42 | ED_ITS ---
HPI - Recheck/Abnormal Lab/Rx <Olivia Casey PA-C - Last Filed: 12/11/23 13:53> General Chief Complaint: Recheck/Abnormal Lab/Rx Stated Complaint: states needs insulin Time Seen by Provider: 12/11/23 12:26 Source: patient Mode of arrival: Wheelchair History of Present Illness HPI narrative: This is a 73-year-old type 2 diabetic with bilateral [id number]-eca-gval amputations who presents to the ER today with concern for needing a refill of his insulin. Patient has been on again off again trying metformin with his primary care provider over the past 5-6 months although he has had a long-term use of insulin for 17 years. He states that after he had COVID last fall his sugars were not well controlled and they went back to the insulin and trialed again metformin recently. Patient states he has a new primary care provider here at [facility] that he is scheduled to see on December 19 for his 1st PCP visit in about 9 days time but is unable to get insulin from his previous provider and is concerned he will run out of his current supply of NovoLog prior to his upcoming appointment. He states his sugars have been okay although he feels they are less well controlled on metformin than they have been with insulin. He has not taken metformin for the last 4 or 5 days but has been using insulin. He initially denies any other complaints or concerns and simply is hoping for a refill of his prescription today but later does acknowledge that he was told he may have a urinary tract infection at his last primary care visit but that they were going to watch it and he states his urine has been darker recently. [facility] and states he made multiple calls today discussing his issue with needing a refill for his NovoLog and ultimately was advised they are unable to help on a Tuesday and he should go to the emergency department. He denies pain with urination fevers chills flank pain or other symptoms. Related Data Home Medications Medication Instructions Recorded Confirmed aspirin 81 mg tablet,delayed 81 mg PO DAILY 07/05/19 12/13/22 release diphenhydramine HCl 25 mg tablet 75 mg PO BID PRN 12/13/22 12/13/22 (Allergy (diphenhydramine)) Previous Rx's Medication Instructions Recorded accu-check meka test strips #100 ea 04/10/20 carvedilol 25 mg tablet 25 mg PO BID #180 tabs 04/08/20 rosuvastatin 20 mg tablet 20 mg PO BEDTIME #90 tabs 10/06/20 hydrocortisone 1 % topical cream 1 applic topical BID PRN itching 08/05/21 (Anti-Itch (hydrocortisone)) #45 grams BD syringe 0.3mL 8MM/31G U/F #500 ea 03/25/22 insulin aspart U-100 100 unit/mL 1 - 15 unit (0.01 - 0.15 mL) 07/22/22 subcutaneous solution (Novolog SUBCUT 5XD #70 mL U-100 Insulin aspart) insulin glargine 100 unit/mL (3 34 unit (0.34 mL) SUBCUT QPM #30 mL 09/28/22 mL) subcutaneous pen (Lantus Solostar U-100 Insulin) hydrochlorothiazide 25 mg tablet 25 mg PO QAM #90 tabs 12/13/22 losartan 50 mg tablet 50 mg PO BID #180 tabs 12/14/22 insulin aspart U-100 100 unit/mL 10 unit (0.1 mL) SUBCUT TID #10 mL 12/11/23 subcutaneous solution (Novolog U-100 Insulin aspart) Allergies Allergy/AdvReac Type Severity Reaction Status Date / Time atenolol Allergy Unknown I don't Verified 12/11/23 12:04 remember hydroxyzine AdvReac Mild I don't Verified 12/11/23 12:04 remember atorvastatin AdvReac Unknown Hives Verified 12/11/23 12:04 clopidogrel AdvReac Unknown Hives Verified 12/11/23 12:04 Review of Systems <Olivia Casey PA-C - Last Filed: 12/11/23 13:53> Review of Systems Narrative: See HPI Patient History <Olivia Casey PA-C - Last Filed: 12/11/23 13:53> Medical History Agent orange exposure Mastalgia Paresthesia of upper extremity Foot pain (~2004) Ankle pain (~2018) Chicken pox (~1956) Ruptured tympanic membrane (~1969) Hearing loss (~1957) Kidney stones (~2011) Deep vein thrombosis (~2004) Diabetic neuropathy CAD (coronary artery disease) of artery bypass graft (~2004) Severe peripheral arterial disease (~1999) Hyperlipidemia Hypertension Diabetes (~2004) Above knee amputation of left lower extremity (~2004) Surgical History S/P AKA (above knee amputation) bilateral Anesthesia History of angioplasty History of carotid endarterectomy H/O fasciotomy AAA (abdominal aortic aneurysm) (~2004) Social History Smoking Status: Former smoker Smoking Status: Former smoker alcohol intake frequency: holidays/special occasions only Substance Use Type: marijuana Exam <Olivia Casey PA-C - Last Filed: 12/11/23 13:53> Narrative Exam Narrative: GENERAL: [73] year old patient appears stated age. Well-developed patient, in mild distress, wheelchair-bound, bilateral eslur-urk-ifhy amputations. Well- appearing.. HEAD: Atraumatic. Normocephalic. EYES: Pupils equal round and reactive. Extraocular motions intact. No scleral icterus. No injection or drainage. ENT: Nose without bleeding, purulent drainage. Airway patent. NECK: Trachea midline. Non tender CARDIOVASCULAR: Regular rate and rhythm without murmurs, gallops, or rubs. RESPIRATORY: Slightly coarse lung sounds bilaterally. Breath sounds equal bilaterally. No wheezes, rales, or rhonchi. GASTROINTESTINAL: Abdomen nondistended. EXTREMITIES: No edema or joint tenderness noted. BACK: Nontender without deformity or crepitance. No flank tenderness. NEURO: AOx3. SKIN: No rash or erythema of visible areas Initial Vital Signs Initial Vital Signs: Vital Signs Temperature 97.4 F L 12/11/23 12:04 Pulse Rate 74 12/11/23 12:04 Respiratory Rate 16 12/11/23 12:04 Blood Pressure 140/66 12/11/23 12:04 Pulse Oximetry 95 12/11/23 12:04 Oxygen Delivery Method Room Air 12/11/23 12:04 <Megan Recinos MD - Last Filed: 12/11/23 13:55> Initial Vital Signs Initial Vital Signs: Vital Signs Temperature 97.4 F L 12/11/23 12:04 Pulse Rate 74 12/11/23 12:04 Respiratory Rate 16 12/11/23 12:04 Blood Pressure 140/66 12/11/23 12:04 Pulse Oximetry 95 12/11/23 12:04 Oxygen Delivery Method Room Air 12/11/23 12:04 Course <Olivia Casey PA-C - Last Filed: 12/11/23 13:53> Orders Ordered: ED Orders 12/11/23 13:05 Urinalysis and Microscopic Stat Vital Signs Vital signs: Vital Signs - 8 hr 12/11/23 12:04 12/11/23 13:50 Temperature 97.4 F L Pulse Rate 74 56 L Respiratory Rate 16 18 Blood Pressure 140/66 99/58 L Pulse Oximetry 95 97 Oxygen Delivery Method Room Air Room Air <Megan Recinos MD - Last Filed: 12/11/23 13:55> Orders Ordered: ED Orders 12/11/23 13:05 Urinalysis and Microscopic Stat Vital Signs Vital signs: Vital Signs - 8 hr 12/11/23 12:04 12/11/23 13:50 Temperature 97.4 F L Pulse Rate 74 56 L Respiratory Rate 16 18 Blood Pressure 140/66 99/58 L Pulse Oximetry 95 97 Oxygen Delivery Method Room Air Room Air MDM - Recheck/Abnormal Lab/Rx <Olivia Casey PA-C - Last Filed: 12/11/23 13:53> Differential Diagnosis Differential diagnosis: Likely encounter for medication refill and other (uti) Lab Data Attestation: I reviewed the patient's lab results. Labs: Lab Results 12/11/23 Range/Units 13:05 Urine Color Yellow Urine Appearance Clear Urine pH 5.5 (4.5-8.0) Ur Specific [place] 1.020 (1.000-1.035) Urine Protein Trace H (Negative) Urine Glucose (UA) Negative (Negative) g/dL Urine Ketones Negative (NEGATIVE) Urine Occult Blood Negative (Negative) Urine Nitrate Negative (Negative) Urine Bilirubin Negative (NEGATIVE) Urine Urobilinogen 0.2 (0.2) E.U./dL Ur Leukocyte Esterase Negative (NEGATIVE) Urine RBC None seen (0-5/HPF) Urine WBC 0-1/hpf (0-5/HPF) Ur Squamous Epith Cells None seen (0-5/HPF) Urine Bacteria None seen (None) Ur Culture Indicated? Cult not indicated Vol Urine Centrifuged 10ml (spun) MDM Narrative Medical decision making narrative: This is a well-appearing 73-year-old male type 2 diabetic with long-term insulin use and AKA bilaterally who came in today with concern for needing a refill of his NovoLog. Also ultimately endorsed some darker urine and that he was told he might have ?a little UTI? last time he saw his primary care provider but was not given antibiotics for this. UA and microscopic sent and these come back without evidence of urinary tract infection or other concerning findings. Patient will be following up with his new PCP on December 19 and he is prescribed NovoLog today. He shares a photo of his medication vial NovoLog 100 units/mL 10 mL vial; and notes that he uses this with sliding scale based on blood sugars and is taking about 10-15 units 4 times a day with meals. Patient has a blood sugar monitor and these data are reviewed with the patient on his phone showing sugars ranging in the 140s to 210 range over the last 90 days. Patient denied any other complaints or concerns and was mildly hypotensive at time of discharge from the ER with systolic of 99 but was asymptomatic from this and noted that his blood pressure does normally run low. Return precautions provided, follow- up plan discussed, all questions answered. <Megan Recinos MD - Last Filed: 12/11/23 13:55> Lab Data Labs: Lab Results 12/11/23 Range/Units 13:05 Urine Color Yellow Urine Appearance Clear Urine pH 5.5 (4.5-8.0) Ur Specific [place] 1.020 (1.000-1.035) Urine Protein Trace H (Negative) Urine Glucose (UA) Negative (Negative) g/dL Urine Ketones Negative (NEGATIVE) Urine Occult Blood Negative (Negative) Urine Nitrate Negative (Negative) Urine Bilirubin Negative (NEGATIVE) Urine Urobilinogen 0.2 (0.2) E.U./dL Ur Leukocyte Esterase Negative (NEGATIVE) Urine RBC None seen (0-5/HPF) Urine WBC 0-1/hpf (0-5/HPF) Ur Squamous Epith Cells None seen (0-5/HPF) Urine Bacteria None seen (None) Ur Culture Indicated? Cult not indicated Vol Urine Centrifuged 10ml (spun) Discharge Plan Departure Patient Disposition: Home Clinical Impression: Type 2 diabetes mellitus with insulin therapy, Dark urine Activity Restrictions/Additional Instructions: *You have been diagnosed with [medication refill, type 2 diabetes] *What to do: *Please continue to take your regular medications as directed. [1 ] New medication prescriptions sent to your pharmacy: [Refill of your NovoLog 100 units/ml] [ ] New medication written as a paper prescription [ ] No new medications given *Please follow up with your primary care provider in 2-3 days, call for an appointment. Let them know you were seen in the Emergency Department and that we ask that you be seen in follow up. We will electronically transmit a record of today's note if your PCP is in our system. You came in today with concern for needing a refill of your NovoLog as you recently change providers and do not have access to your regular pharmacist/prescriber. I am glad that you are getting in to see your new primary care provider in a few days, please continue to monitor your blood sugars with your monitoring device and take the NovoLog as previously prescribed 10-20 units per dose with meals based on blood sugars. During her stay he also stated that you have had some dark urine and were told she might have mild evidence of a UTI her last primary care visit so we also checked her urine today in the emergency department. This looked fine and there is no indication of urinary tract infection or other abnormality. If you have any concerns for new symptoms or changes with her blood sugar make sure you get re-evaluated sooner. *If you do not have a primary care provider please contact the [facility] Resource line at [phone]. They will ask some questions about your medical history and help get you set up with a doctor in the community. *Return to Emergency Department if you should have any new, worsening or c oncerning symptoms, such as [fever greater than 101 F, shaking chills, worsening pain, persistent vomiting or other bothersome symptoms] Prescriptions: New insulin aspart U-100 [Novolog U-100 Insulin aspart] 100 unit/mL solution 10 unit SUBCUT TID Qty: 10 0RF No Action (DME) accu-check meka test strips Qty: 100 3RF Rx Instructions: use to check blood sugar twice a day carvedilol 25 mg tablet 25 mg PO BID Qty: 180 3RF rosuvastatin 20 mg tablet 20 mg PO BEDTIME Qty: 90 2RF hydrocortisone [Anti-Itch (HC)] 1 % cream 1 applic topical BID PRN (Reason: itching) Qty: 45 0RF (DME) BD syringe 0.3mL 8MM/31G U/F Qty: 500 3RF Dose Instruction: As directed Rx Instructions: Use to inject insulin SQ 5 times daily Novolog U-100 Insulin aspart 100 unit/mL solution 1 - 15 unit SUBCUT 5XD MDD 75 units Qty: 70 5RF Hold Instructions: Needs labs Rx Instructions: Follow sliding scale losartan 50 mg tablet 50 mg PO BID Qty: 180 3RF Hold Instructions: Needs labs hydrochlorothiazide 25 mg tablet 25 mg PO QAM Qty: 90 3RF diphenhydramine HCl [Allergy (diphenhydramine)] 25 mg tablet 75 mg PO BID PRN aspirin 81 mg tablet,delayed release (DR/EC) 81 mg PO DAILY Lantus Solostar U-100 Insulin 100 unit/mL (3 mL) insulin pen 34 unit subcut QPM Qty: 30 1RF Hold Instructions: Needs labs Referrals: Florencio Solorio MD [Primary Care Provider] - Stand Alone Forms: Patient Portal/API ED Sign-out <Megan Recinos MD - Last Filed: 12/11/23 13:55> Cosign ED Attending Cosshaneature Attestation: I did not see this patient. I was available all times for consultation.
[2023-12-11 13:31] LABS: Appearance Urine UA CLEAR; Bilirubin Urine UA NEGATIVE (NEGATIVE); Color Urine UA YELLOW; Glucose Urine UA NEGATIVE (Negative); Ketones Urine UA NEGATIVE (NEGATIVE); Leukocyte Esterase Urine UA NEGATIVE (NEGATIVE); Nitrite Urine UA NEGATIVE (Negative); Occult Blood Urine UA NEGATIVE (Negative); Protein Urine UA TRACE (Negative); Urobilinogen Urine UA 0.2 E.U./dL (0.2); pH Urine UA 5.5 (4.5-8.0)
[2023-12-11 13:41] LABS: Bacteria Urine None Seen; Culture Indicated Urine Cult Not Indicated; RBC Urine None Seen (0-5/HPF); Squamous Epithelial Cell Urine None Seen (0-5/HPF); Urine Volume 10mL (spun); WBC Urine 0-1/HPF (0-5/HPF)
[2023-12-11 13:50] VITALS: BP 99/58; PULSE 56; RESP 18; O2SAT 97
--- NOTE | 2023-12-11 13:52 | PC.NURSE ---
spoke with provider about pt's low BP prior to discharge and how patient states this is normal for him having bilateral BKA and wheelchair bound.
== END 2023-12-11 13:51 | disposition home or self-care (01) ==
PROVIDERS: Emergency Provider Student in an Organized Health Care Education/Training Program; PCP Student in an Organized Health Care Education/Training Program
DX: E11.9 Type 2 diabetes mellitus without complications (principal); Z79.4 Long term (current) use of insulin; Z76.0 Encounter for issue of repeat prescription; R82.90 Unspecified abnormal findings in urine
CPT/HCPCS: 81001; 99281; 99282

== ENCOUNTER → 2023-12-20 14:14 | Outpatient (CLI) | payer OTHER, SELFPAY ==
[2023-12-20 17:22] LABS: Hemoglobin A1C% w Est Avg Glu 7.9 % (4.0-6.0)
[2023-12-20 17:49] LABS: BUN Creatinine Ratio 29.3 (6-22); Blood Urea Nitrogen 27 mg/dL (9-20); Calcium 9.3 mg/dL (8.4-10.2); Carbon Dioxide 25 mmol/L (22-32); Chloride 103 mmol/L (98-107); Estimated Glomerular Filt Rate > 60 mL/min (>60); Glucose 82 mg/dL (80-110); HEMOLYSIS < 15 (0-50); Potassium 4.1 mmol/L (3.4-5.1); Sodium 136 mmol/L (137-145)
== END ==
PROVIDERS: PCP Family Medicine; Referring Provider Family Medicine; Visit Provider Family Medicine
DX: E11.9 Type 2 diabetes mellitus without complications (principal); Z79.4 Long term (current) use of insulin
CPT/HCPCS: 36415; 80048; 83036

== ENCOUNTER → 2023-12-23 12:38 | Outpatient (CLI) | payer OTHER, SELFPAY ==
--- NOTE | 2024-01-05 17:12 | DIAB.MNT ---
Initial Diabetes Medical Nutrition Therapy Assessment Name: Jimbo John V Date: 12/23/23 Time: 1:10-330p Dx: Type II Diabetes Kayode presents for initial DM visit. Reports Dm dx in 2004. PMH significant for PAD and bilateral LE amputation r/t Agent [place] exposure per report. 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 Also cooks for . PMH of not able to tolerate Metformin. Plans to start Semaglutide, but has not received rx yet. Needs assistance reducing insulin with addition of GLP1RA. Currently takes 10u humalog with 1u per q 25pt over 100mg/dl correction (usually between 1-15u per sitting), and glargine 45u HS. sometimes humalog HS to correct elevations, which also may increase risk of lows at night. Uses Bari CGM. Unsure how to tx lows, will eat mixed macronutrient foods to correct and may result in hyperglycemia. Diet Recall: 830a: coffee, eggs, meat OR huevos hamlet with 2 tortilla, egg, cheese OR 1/2c dry oats with 1 tsp honey and 10 berries and walnuts OR pancakes with syrup 130p: 1-2 pieces of fruit OR yogurt OR leftovers sn: nothing or cheese with 6 crackers 7p: 1/4c rice or potatoes with protein and non starch veggie 10p: nuts or small orange or cupcake Anthropometrics: Ht: 5'11 Wt: 180# 12/2023 Physical Activity: Not discussed today Self-Monitoring Blood Glucose: Bari CGM. Often wakin >130mg/dl and then eating causes >180mg/dl readings. TIR: 6% very high 26% high 67% in range 1% low 0% very low av mg/dl GMI 7.2% glucose variability 32.4% Diabetes Medications: 45u glargine HS 1-15u humalog per meal 0.25-0.5mg semaglutide (not yet) Pertinent Labs: HgA1c: 7.2% 03/2022 7.3% 09/2022 7.9% 12/2023 Past Medical History: (Last Updated 12/20/23 @ 14:42 by Piero Coburn DO) Above knee amputation of left lower extremity (~2004) Agent orange exposure Amputation leg, bilat Ankle pain (~2018) CAD (coronary artery disease) of artery bypass graft (~2004) Chicken pox (~1956) Deep vein thrombosis (~2004) Diabetes (~2004) Diabetic neuropathy Foot pain (~2004) Hearing loss (~1957) Hyperlipidemia Hypertension Kidney stones (~2011) Mastalgia Microalbuminuria due to type 2 diabetes mellitus Paresthesia of upper extremity Ruptured tympanic membrane (~1969) Severe peripheral arterial disease (~1999) Nutrition Rx: Carbohydrates: Meal:30-45g Snack:15-30g Nutrition Diagnosis: - Food and nutrition related knowledge deficit r/t limited nutrition therapy/education aeb pt report Intervention: This participant was very receptive. Provided appropriate educational handouts. Discussed the following topics: Completed intake assessment. Discussed barriers to care. Pathophysiology of T2DM HgA1c, its correlation to blood glucose numbers, and rationale for goal BG goals Plate Method, impact of macronutrients on blood sugar, meal timing, pairing macronutrients and spreading out carbohydrates for better blood glucose management Recommended servings for carbohydrates at meals and snacks Rule of 15 for lows Potential reduction in insulin strategy with added GLP1 Created SMART goals for patient self-care and success. Goals: Try Rule of 15 for lows Add protein to CHO for pairing macros Keep CGM nearby at night for hypoglycemia precaution Follow-up: [facility] SOW follow-up in 2-3 weeks Deepa Jenkins RDN, [place] Certified Diabetes Care and Deputy Brand Inspector P: [phone] Thank you for this referral
== END ==
PROVIDERS: PCP Family Medicine; Referring Provider Family Medicine; Visit Provider Family Medicine
DX: E11.9 Type 2 diabetes mellitus without complications (principal); Z79.4 Long term (current) use of insulin; Z71.3 Dietary counseling and surveillance
CPT/HCPCS: 97802

== ENCOUNTER → 2024-01-20 17:04 | Outpatient (CLI) | payer OTHER, SELFPAY ==
--- NOTE | 2024-02-14 17:06 | DIAB.FU ---
Follow-up Diabetes Education Assessment Name: Jimbo John V Date: 01/20/24 Time: 138-230p Dx: Type II Diabetes Ozempic too expensive. Started Jardiance 10mg. Takes 45u Lantus HS, aspart prn Tried 5-7u aspart with dessert, which he found helpful. No lows recently Questions about taking insulin AND Jardiance--is that ok. Discussed ADA guidelines Differences between Jardiance v Ozempic Feels drinking pickle juice can reduce BG after meals. FSL sensor [facility] ?dropped? CGM rx. He was able to restart the refills. Anthropometrics: Ht: 5'11 Wt: 180# 12/2023 Physical Activity: started gardening recently, more active. Wants to see the changes in BG. Increased activity with gardening 5x per week. Self-Monitoring Blood Glucose: Bari CGM. Often waking >130mg/dl and then eating causes >180mg/dl readings, same as last visit. However there is some improvement in BG less frequently in 250s and higher. Also no recent lows, which is an improvement.. Glucose variability better than last visit as well. Today's visit: TIR: 4% very high 29% high 67% in range 0% low 0% very low av mg/dl GMI 7.4% glucose variability 22.1% Last visit: TIR: 6% very high 26% high 67% in range 1% low 0% very low av mg/dl GMI 7.2% glucose variability 32.4% Diabetes Medications: 45u glargine HS 1-15u humalog per meal 0.25-0.5mg semaglutide (d/c) 10mg Jardiance Pertinent Labs: HgA1c: 7.2% 03/2022 7.3% 09/2022 7.9% 12/2023 Past Medical History: (Last Updated 12/20/23 @ 14:42 by Piero Coburn DO) Above knee amputation of left lower extremity (~2004) Agent orange exposure Amputation leg, bilat Ankle pain (~2018) CAD (coronary artery disease) of artery bypass graft (~2004) Chicken pox (~1956) Deep vein thrombosis (~2004) Diabetes (~2004) Diabetic neuropathy Foot pain (~2004) Hearing loss (~1957) Hyperlipidemia Hypertension Kidney stones (~2011) Mastalgia Microalbuminuria due to type 2 diabetes mellitus Paresthesia of upper extremity Ruptured tympanic membrane (~1969) Severe peripheral arterial disease (~1999) Intervention: This participant was very receptive. Provided appropriate educational handouts. Discussed the following topics: Insulin action and titration for improved FBG Medication differences and pros/cons and safety: GLP1 v SGLT2i ADA recs for DM medication rx Phys activity and BG Created SMART goals for patient self-care and success. Goals: Try Rule of 15 for lows- continue Add protein to CHO for pairing macros- met Keep CGM nearby at night for hypoglycemia precaution - met Increase Glargine by 2u tonight- new Follow-up: [facility] SOW follow-up in 4 weeks Deepa Jenkins RDN, MAGI Certified Diabetes Care and Loan Supervisor P: [phone] Thank you for this referral
== END ==
PROVIDERS: PCP Family Medicine; Referring Provider Family Medicine
DX: E11.9 Type 2 diabetes mellitus without complications (principal); Z79.84 Long term (current) use of oral hypoglycemic drugs; Z79.4 Long term (current) use of insulin; Z71.3 Dietary counseling and surveillance
CPT/HCPCS: G0108

== ENCOUNTER → 2024-03-20 14:08 | Outpatient (CLI) | payer OTHER, SELFPAY ==
[2024-03-20 15:28] LABS: Hemoglobin A1C% w Est Avg Glu 6.9 % (4.0-6.0)
[2024-03-20 15:40] LABS: BUN Creatinine Ratio 36.8 (6-22); Blood Urea Nitrogen 43 mg/dL (9-20); Carbon Dioxide 24 mmol/L (22-32); Chloride 105 mmol/L (98-107); Cholesterol 120 mg/dL (140-199); Estimated Glomerular Filt Rate > 60 mL/min (>60); Glucose 88 mg/dL (80-110); HDL Cholesterol 38 mg/dL (40-60); HEMOLYSIS < 15 (0-50); LDL Cholesterol Calculated 32 mg/dL (<100); Potassium 4.3 mmol/L (3.4-5.1); Sodium 137 mmol/L (137-145); Triglycerides 252 mg/dL (35-150)
== END ==
PROVIDERS: PCP Family Medicine; Referring Provider Family Medicine; Visit Provider Family Medicine
DX: E11.69 Type 2 diabetes mellitus with other specified complication (principal); E78.2 Mixed hyperlipidemia; I10 Essential (primary) hypertension
CPT/HCPCS: 80048; 80061; 83036

== ENCOUNTER → 2024-09-21 11:35 | Outpatient (CLI) | payer OTHER, SELFPAY ==
[2024-09-21 12:34] LABS: Hemoglobin A1C% w Est Avg Glu 7.1 % (4.0-6.0)
[2024-09-21 12:47] LABS: BUN Creatinine Ratio 33.9 (6-22); Blood Urea Nitrogen 37 mg/dL (9-20); Calcium 9.3 mg/dL (8.4-10.2); Carbon Dioxide 25 mmol/L (22-32); Chloride 101 mmol/L (98-107); Estimated Glomerular Filt Rate > 60 mL/min (>60); Glucose 141 mg/dL (80-110); HEMOLYSIS < 15 (0-50); Sodium 133 mmol/L (137-145)
== END ==
PROVIDERS: PCP Family Medicine; Referring Provider Family Medicine; Visit Provider Family Medicine
DX: S88.911A Complete traumatic amputation of right lower leg, level unspecified, initial encounter (principal); E11.29 Type 2 diabetes mellitus with other diabetic kidney complication; S88.912A Complete traumatic amputation of left lower leg, level unspecified, initial encounter; R80.9 Proteinuria, unspecified; R09.89 Other specified symptoms and signs involving the circulatory and respiratory systems; X58.XXXA Exposure to other specified factors, initial encounter; Z79.4 Long term (current) use of insulin
CPT/HCPCS: 36415; 80048; 83036

== ENCOUNTER → 2024-12-21 17:09 | Outpatient (CLI) | payer OTHER, SELFPAY ==
[2024-12-21 18:15] LABS: Hemoglobin A1C% w Est Avg Glu 6.6 % (4.0-6.0)
== END ==
PROVIDERS: PCP Family Medicine; Referring Provider Family Medicine; Visit Provider Family Medicine
DX: E11.69 Type 2 diabetes mellitus with other specified complication (principal); E78.2 Mixed hyperlipidemia
CPT/HCPCS: 36415; 83036

== ENCOUNTER → 2025-04-05 16:24 | Outpatient (CLI) | payer OTHER, SELFPAY ==
[2025-04-05 16:56] LABS: Hemoglobin A1C% w Est Avg Glu 6.6 % (4.0-6.0)
[2025-04-05 17:27] LABS: Blood Urea Nitrogen 39 mg/dL (9-20); Calcium 9.3 mg/dL (8.4-10.2); Carbon Dioxide 23 mmol/L (22-32); Chloride 106 mmol/L (98-107); Cholesterol 106 mg/dL (140-199); Estimated Glomerular Filt Rate 52 mL/min (>60); Glucose 119 mg/dL (70-99); HDL Cholesterol 38 mg/dL (40-60); HEMOLYSIS < 15 (0-50); Potassium 3.8 mmol/L (3.4-5.1); Sodium 136 mmol/L (137-145); Triglycerides 277 mg/dL (35-150)
== END ==
PROVIDERS: PCP Family Medicine; Referring Provider Family Medicine; Visit Provider Family Medicine
DX: E11.29 Type 2 diabetes mellitus with other diabetic kidney complication (principal); E11.69 Type 2 diabetes mellitus with other specified complication; R80.9 Proteinuria, unspecified; E78.2 Mixed hyperlipidemia; Z79.4 Long term (current) use of insulin
CPT/HCPCS: 80048; 80061; 83036

== ENCOUNTER → 2025-07-27 11:47 | Outpatient (CLI) | payer OTHER, SELFPAY ==
[2025-07-27 13:06] LABS: Hematocrit 41.7 % (41-53); Hemoglobin 13.8 g/dL (13.5-17.5); Mean Corpuscular HGB Conc 33.2 % (30-36); Mean Corpuscular Hemoglobin 28.5 PG (26-34); Mean Corpuscular Volume 85.7 fL (80-100); Platelet Count 160 X10^3/uL (150-400)
[2025-07-27 13:25] LABS: Alanine Aminotransferase 18 IU/L (<50); Albumin 3.6 g/dL (3.5-5.0); Albumin Globulin Ratio 1.1 (1.0-2.8); Alkaline Phosphatase 102 U/L (38-126); Blood Urea Nitrogen 25 mg/dL (9-20); Calcium 8.7 mg/dL (8.4-10.2); Carbon Dioxide 22 mmol/L (22-32); Chloride 105 mmol/L (98-107); Estimated Glomerular Filt Rate > 60 mL/min (>60); Globulin 3.2 g/dL (1.7-4.1); Glucose 190 mg/dL (70-99); HEMOLYSIS < 15 (0-50); Potassium 4.2 mmol/L (3.4-5.1); Sodium 136 mmol/L (137-145); Total Protein 6.8 g/dL (6.3-8.2)
[2025-07-27 13:26] LABS: Hemoglobin A1C% w Est Avg Glu 6.7 % (4.0-6.0)
[2025-07-27 14:47] LABS: Microalbumi Creatinin Ratio Ur 178.0 ug/mg CR (<30)
== END ==
PROVIDERS: PCP Family Medicine; Referring Provider Family Medicine; Visit Provider Family Medicine
DX: E11.29 Type 2 diabetes mellitus with other diabetic kidney complication (principal); R80.9 Proteinuria, unspecified; N28.9 Disorder of kidney and ureter, unspecified; Z79.4 Long term (current) use of insulin; I10 Essential (primary) hypertension
CPT/HCPCS: 36415; 80053; 82043; 82570; 83036; 85027